=== PATIENT | female | born 1950 | race Caucasian/White ===

== ENCOUNTER 2016-06-03 12:54 | Observation (INO) | payer BC ==
[2016-06-03 13:32] LABS: BILIRUBIN,URINE NEGATIVE (NEGATIVE); BLOOD/HEMOGLOBIN,URINE 1+ (NEGATIVE); GLUCOSE, URINE NEGATIVE (NEGATIVE); KETONES,URINE NEGATIVE (NEGATIVE); LEUKOCYTE ESTERASE ,URINE 2+ (NEGATIVE); NITRITES,URINE NEGATIVE (NEGATIVE); PROTEIN,URINE NEGATIVE (NEGATIVE); UROBILINOGEN,URINE NORMAL (NORMAL)
[2016-06-03 13:33] LABS: BASOPHILS # (AUTO) 0.1 X10^3/uL (0.0-0.1); BASOPHILS % (AUTO) 0.9 % (0.2-1.0); EOSINOPHILS # (AUTO) 0.1 x10^3/uL (0.0-0.2); EOSINOPHILS % (AUTO) 1.9 % (0.9-2.9); HEMATOCRIT 38.1 % (36.0-47.0); HEMOGLOBIN 12.8 g/dL (12.0-16.0); LYMPHOCYTES # (AUTO) 1.3 X10^3/uL (1.3-2.9); LYMPHOCYTES % (AUTO) 22.7 % (21.0-51.0); MEAN CORPUSCULAR HGB CONC 33.7 g/dL (33.0-35.0); MEAN PLATELET VOLUME 6.4 fL (7.4-11.0); MONOCYTES # (AUTO) 0.2 x10^3/uL (0.3-0.8); MONOCYTES % (AUTO) 3.7 % (0.0-13.0); NEUTROPHILS % (AUTO) 70.8 % (42.0-75.0); PLATELET COUNT 268 X10^3/uL (150.0-450.0); RED BLOOD COUNT 4.14 X10^6/uL (3.5-5.4); RED CELL DISTRIBUTION WIDTH 12.7 % (11.6-16.5); WHITE BLOOD COUNT 5.7 X10^3/uL (3.6-10.0)
[2016-06-03 13:38] LABS: APPEARANCE,URINE HAZY (CLEAR); BACTERIA,URINE TRACE /HPF (NEGATIVE); COLOR,URINE YELLOW (YELLOW); RBC,URINE 0-2 /HPF (NEGATIVE); SQUAMOUS EPITHELIAL CELL,UR RARE /HPF (NEGATIVE)
--- NOTE | 2016-06-03 13:56 | CT ---
CT HEAD WITHOUT CONTRAST CLINICAL HISTORY: 65-year-old female with syncope and headache. COMPARISON: None. TECHNIQUE: Multiple, non-contrasted axial CT images were obtained from the skull base to the crania l vertex. FINDINGS: There are no abnormal intra- or extra-axial fluid collections, midline shift, or mass effe ct. Marroquin-white differentiation is normal. Partially empty sella. Global cortical involutional change s are present that are within normal limits for the patient's stated age. The ventricular system is mildly enlarged but commensurate with the degree of sulcal prominence. Periventricular and supravent ricular white matter hypodensity is present that is nonspecific in appearance, but most likely to re present microvascular ischemic changes. Atherosclerotic vascular calcification is present within the carotid siphons and distal vertebral arteries. The imaged paranasal sinuses, mastoid air cells, and tympanic spaces are clear. Significant falcine calcifications are present. IMPRESSION: 1. No definite evidence of an acute intracranial process. 2. Moderate microvascular white matter ischemic changes, with associated volume loss. Reported By:
--- NOTE | 2016-06-03 13:57 | RAD ---
AP Chest Indication: Syncope Comparison: 11/04/2015 Findings: The trachea is midline. The cardiac silhouette is unremarkable. There is mild scarring/atelectasis within the left lung base. Surgical clips are noted within the left axilla. The bony thorax is unr emarkable. IMPRESSION: 1. No acute cardiopulmonary abnormality. Reported By:
[2016-06-03 14:17] LABS: BLOOD UREA NITROGEN 15 mg/dL (7-18); CALCIUM 9.1 mg/dL (8.5-10.1); CARBON DIOXIDE 31.9 mmol/L (21-32); CHLORIDE 101 mmol/L (98-107); CREATININE 0.61 mg/dL (0.55-1.02); GLUCOSE 75 mg/dL (65-99); SODIUM 139 mmol/L (136-145); TROPONIN I < 0.02 ng/mL (0-1.5); eGFR BLACK RACES > 60 (>60); eGFR NON BLACK RACES > 60 (>60)
[2016-06-03 14:24] LABS: ALANINE AMINOTRANSFERASE 25 Units/L (12-78); ALBUMIN 3.6 g/dL (3.4-5.0); ALKALINE PHOSPHATASE 128 Units/L (46-116); ASPARTATE AMINO TRANSFERASE 37 Units/L (15-37); CREATINE KINASE 454 Units/L (26-192)
[2016-06-03 14:25] LABS: CKMB % 1.3 % (<4)
[2016-06-03 14:27] LABS: CREATINE KINASE MB 6.1 ng/mL (0-4.0)
[2016-06-03] MEDS ORDERED: LEVAQUIN TAB 500 MG PO SCH (15:00)
[2016-06-03] MEDS ORDERED: NORVASC TAB 5 MG PO SCH (15:00)
[2016-06-03 15:45] VITALS: BMI 18.9
[2016-06-03] MEDS ORDERED: DUONEB 0.5 MG/3 MG NEB SCH (17:00)
[2016-06-03] MEDS: NS 1000 ML 1,000 ML IV SCH (20:03)
[2016-06-03] MEDS: NEURONTIN CAP 300 MG PO SCH (20:04)
[2016-06-03] MEDS: XANAX PO SCH (20:04)
[2016-06-03 20:25] LABS: CKMB % 1.2 % (<4); CREATINE KINASE 296 Units/L (26-192); CREATINE KINASE MB 3.4 ng/mL (0-4.0); TROPONIN I < 0.02 ng/mL (0-1.5)
[2016-06-04 01:52] LABS: CKMB % 0.9 % (<4); CREATINE KINASE 228 Units/L (26-192); CREATINE KINASE MB 2.1 ng/mL (0-4.0); TROPONIN I < 0.02 ng/mL (0-1.5)
[2016-06-04] MEDS: NS 1000 ML 1,000 ML IV SCH (05:27)
[2016-06-04 06:13] LABS: BASOPHILS # (AUTO) 0.1 X10^3/uL (0.0-0.1); EOSINOPHILS # (AUTO) 0.1 x10^3/uL (0.0-0.2); EOSINOPHILS % (AUTO) 1.6 % (0.9-2.9); HEMATOCRIT 34.6 % (36.0-47.0); HEMOGLOBIN 11.8 g/dL (12.0-16.0); LYMPHOCYTES % (AUTO) 19.3 % (21.0-51.0); MEAN CORPUSCULAR HEMOGLOBIN 30.9 pg (27.0-34.0); MEAN CORPUSCULAR VOLUME 90.7 fL (80.0-100.0); MEAN PLATELET VOLUME 6.8 fL (7.4-11.0); MONOCYTES # (AUTO) 0.3 x10^3/uL (0.3-0.8); MONOCYTES % (AUTO) 5.6 % (0.0-13.0); NEUTROPHILS # (AUTO) 3.7 x10^3/uL (2.2-4.8); NEUTROPHILS % (AUTO) 72.5 % (42.0-75.0); PLATELET COUNT 242 X10^3/uL (150.0-450.0); RED BLOOD COUNT 3.81 X10^6/uL (3.5-5.4); RED CELL DISTRIBUTION WIDTH 12.7 % (11.6-16.5); WHITE BLOOD COUNT 5.2 X10^3/uL (3.6-10.0)
[2016-06-04 06:34] LABS: ALANINE AMINOTRANSFERASE 23 Units/L (12-78); ALBUMIN 2.9 g/dL (3.4-5.0); ALKALINE PHOSPHATASE 85 Units/L (46-116); ASPARTATE AMINO TRANSFERASE 26 Units/L (15-37); BLOOD UREA NITROGEN 10 mg/dL (7-18); CALCIUM 8.3 mg/dL (8.5-10.1); CARBON DIOXIDE 28.2 mmol/L (21-32); CHLORIDE 104 mmol/L (98-107); COR CA(FOR HYPOALB) 9.2 mg/dL (8.5-10.1); CREATININE 0.38 mg/dL (0.55-1.02); GLUCOSE 98 mg/dL (65-99); SODIUM 139 mmol/L (136-145); eGFR BLACK RACES > 60 (>60); eGFR NON BLACK RACES > 60 (>60)
[2016-06-04] MEDS: XANAX PO SCH (08:37)
[2016-06-04] MEDS: NEURONTIN CAP 300 MG PO SCH (08:37)
[2016-06-04 10:08] VITALS: BP 137/81
[2016-06-04] MEDS ORDERED: FLEXERIL TAB 10 MG PO PRN (11:22)
[2016-06-04] MEDS ORDERED: [UNRECOGNIZED DRUG - OTHER] PO PRN (11:22)
[2016-06-04] MEDS ORDERED: TYLENOL #3 TAB (W/CODEINE) PO PRN (12:21)
--- NOTE | 2016-06-04 13:16 | DR.CARTERS ---
Short Stay Summary - Short Stay Summary for: Short Stay Summary for Date of:: 06/04/16 - Admission Date Date of Admission: 06/03/16 - Discharge Date Discharge Date: 06/04/16 - Admission Diagnoses (1) Episode of syncope Status: Acute (2) Unresponsive Status: Acute (3) Respiratory distress Status: Acute (4) Acute bronchitis Status: Acute (5) Hypertension Status: Chronic (6) Anxiety Status: Chronic - Hospital Course Hospital Course: DAY ONE OF HOSPITAL STAY, THIS 65 YEAR OLD FEMALE, IS A PATIENT OF DR. SWANSON. PATIENT PRESENTED TO THE EMERGENCY ROOM, VIA EMS, WITH COMPLAINTS OF A SYNCOPAL EPISODE AT HOME. PATIENT'S SON REPORTED HE FOUND HER LAYING IN THE DOORWAY OF HER HOME AND SHE WAS UNRESPONSIVE. PATIENT HAS A HISTORY OF SYNCOPE. SON REPORTED PATIENT WAS UNRESPONSIVE FOR APPROXIMATELY 30 MINUTES. PATIENT WAS ALERT AND ORIENTED ON ARRIVAL TO ER. 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 ON ARRIVAL, PATIENT WAS REPORTING BACK AND RIGHT LEG PAIN AND RATED IT A 7 ON A 1-TO-10 PAIN SCALE. VITAL SIGNS WERE STABLE. PATIENT REPORTED SHE WAS A HEAVY TOBACCO SMOKER OF 40 YEARS. SHE REPORTED A PRODUCTIVE COUGH WITH THICK, YELLOW SPUTUM. ON AUSCULTATION, LUNGS WERE NOTED WITH RHONCHI THROUGHOUT. SHE WAS NOTED WITH MODERATE RESPIRATORY DISTRESS WITH ACCESSORY MUSCLE USE. LABS AND XRAY OBTAINED IN ER. CBC WNL. CMP WNL EXCEPT: ALK PHOS 128. CARDIAC ENZYMES WNL EXCEPT: CREAT KINASE 454, CKMB 6.1. URINALYSIS WNL. CT OF BRAIN REPORTED NO DEFINITE EVIDENCE OF ACUTE INTRACRANIAL PROCESS; MODERATE MICROVASCULAR WHITE MATTER ISCHEMIC CHANGES, WITH ASSOCIATED VOLUME LOSS. CHEST XRAY REPORTS NO ACUTE CARDIOPULMONARY ABNORMALITY. EKG: SINUS RHYTHM, RATE 86. WE ADMITTED PATIENT FOR FURTHER TREATMENT AND EVALUATION. DAY TWO OF HOSPITAL STAY, PATIENT WAS MONITORED IN ICU ON TELEMETRY. SHE CONTINUED ON DUONEBS FOR BRONCHITIS. SERIAL CARDIAC ENZYMES WNL EXCEPT: CREAT KINASE 228. EKG: SINUS RHYTHM, RATE 83. CBC WNL EXCEPT: H/H 11.8/34.6. CMP WNL EXCEPT: CALCIUM 8.3, TOT PROTEIN 6.0, ALBUMIN 2.9. PATIENT REFUSED TO STAY IN HOSPITAL FOR FURTHER TREATMENT AND EVALUATION OF SYNCOPE AND RESPIRATORY DISTRESS. PATIENT WAS NOTED WITH SHORTNESS OF BREATH ON EXERTION. PATIENT SIGNED OUT AGAINST MEDICAL ADVICE. PATIENT LEFT HOSPITAL IN STABLE CONDITION. - Discharge Medications Discharge Medications: Acetaminophen W/ Codeine [Tylenol w/Codeine #4 (300 mg/60 mg)] 1 tab PO Q8H PRN 02/16/12 Alprazolam [XANAX 0.5 MG *] 0.5 mg PO BID 02/16/12 Amlodipine Besylate [NORVASC 5 MG *] 1 tab PO .EVENING 06/03/16 Cyclobenzaprine HCl [FLEXERIL 10 MG *] 1 tab PO TID PRN 06/03/16 Gabapentin [NEURONTIN CAP 300 mg *] 1 cap PO BID 06/03/16 - Discharge Plan Disposition: AGAINST MEDICAL ADVICE Condition: Stable - Follow up/Referrals Follow up/Referrals: BRAD SWANSON [Primary Care Provider] - 1 DAY - Instructions
== END 2016-06-04 12:20 | disposition left against medical advice (07) ==
LOC: ER 12:54 → ICU 14:04
PROVIDERS: ADMIT Internal Medicine; ATTEND Internal Medicine
DX: R55 Syncope and collapse (principal); J20.8 Acute bronchitis due to other specified organisms; R06.00 Dyspnea, unspecified; I10 Essential (primary) hypertension; F41.8 Other specified anxiety disorders; M54.89 Other dorsalgia; M79.604 Pain in right leg; R06.02 Shortness of breath; D64.89 Other specified anemias; R74.8 Abnormal levels of other serum enzymes; R41.89 Other symptoms and signs involving cognitive functions and awareness
CPT/HCPCS: 36415; 70450; 71010; 80053; 81001; 82550; 82553; 84484; 85025; 93005; 93010; 96365; 99284; G0378

== ENCOUNTER → 2016-08-22 | Outpatient (CLI) | payer BC ==
--- NOTE | 2016-08-22 17:33 | MRI ---
HISTORY: Back pain. Study: MRI thoracic spine without contrast. Comparison: None. Massiel Technique: Multiplanar/multi sequence imaging of the thoracic spine without contrast. Findings: Anatomic alignment without fracture or listhesis. Multilevel disc desiccation without significant di sc height loss. Several scattered T1/T2 bright foci likely representing benign hemangiomas. Multilev el type 2 Modic endplate changes. No aggressive osseous lesions. Otherwise , the visualized bone mar row demonstrates normal signal characteristics. No significant neural foraminal narrowing or spinal canal stenosis. The visualized spinal cord demonstrates normal course, caliber, and signal character istics. The visualized soft tissues are unremarkable. IMPRESSION: No significant neural foraminal narrowing or spinal canal stenosis. Reported By:
== END ==
LOC: RAD 15:43
PROVIDERS: ATTEND Nurse Practitioner Family
DX: M54.6 Pain in thoracic spine (principal)
CPT/HCPCS: 72146

== ENCOUNTER 2016-11-02 04:56 | Emergency (ER) | payer OTHER ==
[2016-11-02 05:14] VITALS: BP 173/85; BMI 16.6
--- NOTE | 2016-11-02 05:30 | DR.GENAD ---
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 Pain 10, severlty quality sharp, duration one day modifying factor movement Chief Complaint:: BACK PAIN Self Treatment fo Chief Complaint: TYLENOL #4;ALPRAZOLAM 0.5MG;CYCLOBENZAPRINE 10MG; GABAPENTIN 300MG - Source History Provided: Patient - Mode of Arrival Mode of Arrival: Ambulatory - Timing Onset of Chief Complaint: 10/31/16 PMH - PMH Past Medical History: Yes Past Medical History: Hypertension Past Medical History Comment: DJD; MULTIPLE SURGIES Past Surgical History: Yes Surgical History: Appendectomy, Cholecystectomy, Hysterectomy, Mastectomy, Ortho Surgery - Family History History of Family Medical Conditions: No Family Medical History: Cancer, [place], Coronary Artery Disease, Sudden Cardiac , Hypertension - Social History Does patient currently use any type of tobacco product: Yes Have you used tobacco products in the last 12 months: Yes Type of Tobacco Use: Cigarettes Alcohol Use: Rarely Do you use any recreational Drugs:: No Lives With: Spouse Lives Where: Home - infectious screening In the last 2 months have you had wt loss of >10#?: NO Have you had fever, night sweats or hemotysis?: No Have you traveled outside the country in the last 6 months?: No Isolation: Standard ROS - Review of Systems Eyes: No Symptoms Reported ENTM: No Symptoms Reported Respiratoy: No Symptoms Reported Cardiovascular: No Symptoms Reported Gastrointestinal/Abdominal: No Symptoms Reported Genitourinary: No Symptoms Reported Neurological: No Symptoms Reported Musculoskeletal: No Symptoms Reported Integumentary: No Symptoms Reported Hematologic/Lymphatic: No Symptoms Reported Endocrine: No Symptoms Reported Psychiatric: No Symptoms Reported All Other Systems: Reviewed and Negative PE - Vital Signs Vitals: Temperature 98.6 F Pulse Rate 99 Respiratory Rate 20 Blood Pressure [Right Arm] 137/81 Blood Pressure 173/85 O2 Sat by Pulse Oximetry 96 - General Limitations: No Limitations General Appearance: Alert, Anxious - Head Head Exam: Normal Inspection, Atraumatic - Eyes Eye exam: Normal Appearance, PERRL, EOMI - ENT ENT Exam: Normal Exam External Ear Exam: Normal External Inspection TM/Canal Exam: Bilateral Normal Nose Exam: Normal Nose Exam Mouth Exam: Normal Inspection Throat Exam: Normal Inspection - Neck Neck Exam: Normal Inspection, Full ROM - Chest Chest Inspection: Normal Inspection - Respiratory Respiratory Exam: Normal Lung Sounds Bilat Respiratory Exam: Bilateral Clear to Auscultation - Cardiovascular Cardiovascular Exam: Regular Rate, Normal Rhythm - Abdominal Exam Abdominal Exam: Normal Inspection, Normal Bowel Sounds, Soft Abdominal Tenderness: negative: RUQ, RLQ, LUQ, LLQ, Epigastrium, Suprapubic, Diffuse, Mild, Moderate, Severe, Other - Extremities Extremities Exam: Normal Inspection, Full ROM - Back Back Exam: Normal Inspection, Full ROM - Neurologic Neurological Exam: Alert, Oriented X3, CN II-XII Intact - Psychiatric Psychiatric Exam: Normal Affect - Skin Skin Exam: Warm, Dry, Intact - Diagnosis Discharge Problem: Back pain Qualifiers: Back pain location: low back pain Chronicity: chronic Back pain laterality: midline Sciatica presence: without sciatica Qualified Code(s): M54.5 - Low back pain; G89.29 - Other chronic pain - Discharge Plan Condition: Stable - Follow ups/Referrals Follow ups/Referrals: MERYL DESAI [Primary Care Provider] - 3 days - Instructions
[2016-11-02] MEDS ORDERED: DEMEROL INJ IM ONE (05:31)
[2016-11-02] MEDS ORDERED: PHENERGAN INJ 25 MG IM ONE (05:32)
[2016-11-02] MEDS ORDERED: PHENERGAN INJ 25 MG ONE (05:33)
[2016-11-02] MEDS ORDERED: DEMEROL INJ ONE (05:33)
== END 2016-11-02 06:33 | disposition home or self-care (01) ==
LOC: ER 04:56
DX: M54.5 Low back pain (principal); G89.29 Other chronic pain
CPT/HCPCS: 96372; 99282; J2175; J2550

== ENCOUNTER 2016-11-19 09:58 | Observation (INO) | payer OTHER ==
[2016-11-19] MEDS: NS 1000 ML 1,000 ML IV SCH (11:30)
[2016-11-19] MEDS: CIPRO IV 400 MG PREMIX* 400 MG/200 ML IV.SOLN. IV SCH ×2 (11:31→20:46)
[2016-11-19 11:33] VITALS: BMI 17.5
[2016-11-19 11:36] LABS: BASOPHILS # (AUTO) 0.1 X10^3/uL (0.0-0.1); BASOPHILS % (AUTO) 1.1 % (0.2-1.0); EOSINOPHILS % (AUTO) 0.5 % (0.9-2.9); HEMATOCRIT 36.4 % (36.0-47.0); HEMOGLOBIN 12.7 g/dL (12.0-16.0); LYMPHOCYTES % (AUTO) 16.1 % (21.0-51.0); MEAN CORPUSCULAR HEMOGLOBIN 31.2 pg (27.0-34.0); MEAN CORPUSCULAR HGB CONC 34.9 g/dL (33.0-35.0); MEAN CORPUSCULAR VOLUME 89.4 fL (80.0-100.0); MEAN PLATELET VOLUME 6.7 fL (7.4-11.0); MONOCYTES # (AUTO) 0.2 x10^3/uL (0.3-0.8); MONOCYTES % (AUTO) 3.9 % (0.0-13.0); NEUTROPHILS # (AUTO) 4.9 x10^3/uL (2.2-4.8); NEUTROPHILS % (AUTO) 78.4 % (42.0-75.0); PLATELET COUNT 394 X10^3/uL (150.0-450.0); RED BLOOD COUNT 4.07 X10^6/uL (3.5-5.4); RED CELL DISTRIBUTION WIDTH 13.2 % (11.6-16.5); WHITE BLOOD COUNT 6.3 X10^3/uL (3.6-10.0)
[2016-11-19 12:00] LABS: ALANINE AMINOTRANSFERASE 18 Units/L (12-78); ALBUMIN 3.6 g/dL (3.4-5.0); ALKALINE PHOSPHATASE 70 Units/L (46-116); ASPARTATE AMINO TRANSFERASE 19 Units/L (15-37); BLOOD UREA NITROGEN 11 mg/dL (7-18); CALCIUM 8.9 mg/dL (8.5-10.1); CARBON DIOXIDE 28.8 mmol/L (21-32); CHLORIDE 100 mmol/L (98-107); CREATININE 0.53 mg/dL (0.55-1.02); FREE T4 (FREE THYROXINE) 0.96 ng/dL (0.76-1.46); MAGNESIUM 1.8 mg/dL (1.7-2.9); SODIUM 138 mmol/L (136-145); TOTAL PROTEIN 7.1 g/dL (6.4-8.2); TSH (3RD GENERATION) 0.245 uIU/mL (0.358-3.74); eGFR BLACK RACES > 60 (>60); eGFR NON BLACK RACES > 60 (>60)
[2016-11-19 12:11] LABS: BILIRUBIN,URINE NEGATIVE (NEGATIVE); BLOOD/HEMOGLOBIN,URINE 2+ (NEGATIVE); GLUCOSE, URINE NEGATIVE (NEGATIVE); KETONES,URINE NEGATIVE (NEGATIVE); LEUKOCYTE ESTERASE ,URINE 1+ (NEGATIVE); NITRITES,URINE NEGATIVE (NEGATIVE); PROTEIN,URINE NEGATIVE (NEGATIVE); UROBILINOGEN,URINE NORMAL (NORMAL)
[2016-11-19] MEDS ORDERED: CATAPRES TAB 0.1 MG PO ONE (12:16)
--- NOTE | 2016-11-19 12:21 | DR.H&P ---
H&P - History & Physical for Day of: H&P Date: 11/19/16 - Chief Complaint Chief Complaint: RIGHT SIDE PAIN, HEADACHE AND ELEVATED BLOOD PRESSURE THIS AM - Allergies Allergies/Adverse Reactions: Allergies Allergy/AdvReac Type Severity Reaction Status Date / Time morphine Allergy Verified 11/02/16 05:25 - History of Present Illness History of Present Illness: patient is a 66-year-old white female who was a direct admit from Dr. Richter's office. Patient presented with complaints of right side and right flank pain. Patient states pain is intractable. Patient also complains of headache and elevated blood pressure this a.m. Patient currently takes lisinopril daily for blood pressure. Patient's blood pressure in the office was approximately 170/100. Patient complains of nausea without vomiting or diarrhea. Plan to admit patient for further evaluation of right abdominal pain and treatment of hypertension. - Past Medical History Past Medical History: Anxiety, Arthritis, Hypertension - Past Surgical History Surgical History: Appendectomy, Cholecystectomy, Hysterectomy, Mastectomy, Ortho Surgery - Family History Family Medical History: Cancer, [place], Coronary Artery Disease, Sudden Cardiac , Hypertension - Social History Does patient currently use any type of tobacco product: Yes Have you used tobacco products in the last 12 months: Yes Type of Tobacco Use: Cigarettes How many years tobacco product used: 40 Does any household member use tobacco: No Alcohol Use: None Drug Use: None - Medications Home Medications: Aspirin [ASPIRIN 325 MG *] 1 tab PO DAILY 11/19/16 [History Confirmed 11/19/16] Lisinopril/Hydrochlorothiazide [Lisinopril-Hctz 10-12.5 mg Tab] 1 tab PO DAILY 11/19/16 [History Confirmed 11/19/16] - Review of Systems Constitutional: Weakness Eyes: No Symptoms Reported ENT: No Symptoms Reported Respiratory: No Symptoms Reported Cardiovascular: Palpitations Gastrointestinal: Nausea, Abdominal Pain Genitourinary: No Symptoms Reported Musculoskeletal: Back Pain Skin: No Symptoms Reported Neurological: Other (headache) - Physical Exam Vital Signs: Temperature 98.3 F Pulse Rate [Left Brachial] 77 Respiratory Rate 18 Blood Pressure [Left Arm] 196/90 Blood Pressure [Right Arm] 137/81 Blood Pressure 173/85 O2 Sat by Pulse Oximetry 96 Oriented: Normal Eyes: Normal Ear: Normal Nose: Normal Throat: Normal Respiratory: LLL Diminished Cardiovascular: Normal Auscultation: Bowel Sounds: Normal Palpation: Normal Tenderness: RLQ, Other (right flank tenderness) Musculoskeletal: Back:Thoracic, Back:Lumbar, Deformity (scoliosis), Sensory Deficit Mood Description: Anxious Speech Pattern: Clear, Appropriate - Assessment/Plan (1) Right sided abdominal pain Status: Acute Plan: ADMIT, ADMISSION LABS CBC CMP UA. MAG, EKG, CXR ON ADMISSION. CATAPRES 0.1 PO NOW, CT ABD PELVIS WITH CONTRAST. RESUME HOME MEDS, D/C LISINORPIL/HCT. START LISINOPRIL 10MG PO BID (2) Hypertension Status: Chronic (3) COPD (chronic obstructive pulmonary disease) Status: Acute (4) Anxiety Status: Chronic
[2016-11-19 12:23] LABS: APPEARANCE,URINE CLEAR (CLEAR); BACTERIA,URINE TRACE /HPF (NEGATIVE); COLOR,URINE YELLOW (YELLOW); MUCUS,URINE FEW /HPF (NEGATIVE); SQUAMOUS EPITHELIAL CELL,UR RARE /HPF (NEGATIVE)
[2016-11-19] MEDS ORDERED: ZOFRAN INJ 4 MG VIAL IVP PRN (12:25)
[2016-11-19] MEDS ORDERED: NS 100 ML IV 100 ML IV ONE (12:48)
[2016-11-19] MEDS: NORCO 10/325 TAB PO PRN ×2 (13:07→23:25)
--- NOTE | 2016-11-19 17:57 | CT ---
CT abdomen and pelvis with contrast Indication: Right lower quadrant and flank pain for 2 months Technique: 5 mm axial images of the abdomen and pelvis was performed after administration of IV contr ast. Coronal and sagittal reformatted images were also provided. Dose modulation was performed with adjustment of mA and kV for decreased radiation dose was performed . Findings: The lung bases are clear. There is no focal hepatic lesion. There is mild intrahepatic and expected bile duct dilatation of the with and without obstructing stone or mass identified. Prior cho lecystectomy is noted. The spleen, pancreas and adrenal glands are normal. There is moderate scarring within the superior right kidney. No mass or hydronephrosis identified. There is a punctate nonobstr ucting stone within the lower pole the right kidney on axial image 31. The left kidney demonstrates a small cyst within its mid pole. No nephrolithiasis or hydronephrosis. Upper GI tract is without evid ence of mass or obstruction. Urinary bladder is normal. No pelvic or adnexal mass. The rectum is unre markable. There is mild thickening of the sigmoid colon with multiple diverticula within the sigmoid and descending colon. The proximal colon is unremarkable. The appendix is not well visualized abdomin al aorta is normal in caliber with moderate calcified atherosclerotic disease and tortuosity. No delfino opathy free fluid within the abdomen or pelvis. Review of bone windows demonstrates no acute osseous abnormality. There is moderate dextroscoliosis lumbar spine with multilevel spondylosis noted. Impression: 1.Scattered diverticula with mild thickening of the sigmoid colon, given lack of surrounding pericolo vahid inflammatory change is indeterminate and clinical correlation is needed to exclude a mild acute d iverticulitis. 2. A punctate nonobstructing stone within the lower pole of the right kidney. No right-sided ureteral stone or hydronephrosis. 3. Moderate parenchymal scarring within the upper pole of the right kidney. 4. Mild intra and extrahepatic bile duct dilatation without obstructing stone or mass, correlation c holestatic function test is recommended however this can be seen in a setting of prior cholecystectom y. 5. The appendix was not visualized, no definite inflammatory change or fluid identified within the ri t lower quadrant. 6. Refer to above for other incidental findings. Reported By:
[2016-11-19] MEDS: TORADOL 15 MG VIAL IVP PRN (18:16)
--- NOTE | 2016-11-19 18:20 | RAD ---
HISTORY: Right lower quadrant pain, flank pain Study: Single view chest Comparison: 06/03/2016 Findings: The lungs are clear without consolidation, effusion or pneumothorax. The cardiac and mediastinal con tours are within normal limits. The soft tissues are unremarkable. Multiple surgical clips are seen in the left axilla. IMPRESSION: 1. No acute cardiopulmonary abnormality. Reported By:
[2016-11-19] MEDS ORDERED: PATIENT'S HOME MEDICATION (Acetaminophen With Codeine [Tylenol W/Codeine #4 (300 Mg/60 Mg) PO PRN (19:44)
[2016-11-19] MEDS: NEURONTIN CAP 300 MG PO SCH (20:45)
[2016-11-19] MEDS: ZESTRIL TAB 10 MG PO SCH (20:46)
[2016-11-19] MEDS: XANAX PO SCH (20:46)
[2016-11-19] MEDS: FLEXERIL TAB 10 MG PO PRN (23:26)
[2016-11-20] MEDS: TORADOL 15 MG VIAL IVP PRN ×2 (01:15→09:23)
[2016-11-20] MEDS: NS 1000 ML 1,000 ML IV SCH ×2 (01:17→14:56)
[2016-11-20 05:28] LABS: BASOPHILS # (AUTO) 0.1 X10^3/uL (0.0-0.1); BASOPHILS % (AUTO) 1.5 % (0.2-1.0); EOSINOPHILS # (AUTO) 0.2 x10^3/uL (0.0-0.2); EOSINOPHILS % (AUTO) 3.7 % (0.9-2.9); HEMATOCRIT 33.3 % (36.0-47.0); HEMOGLOBIN 11.4 g/dL (12.0-16.0); LYMPHOCYTES # (AUTO) 1.9 X10^3/uL (1.3-2.9); LYMPHOCYTES % (AUTO) 32.5 % (21.0-51.0); MEAN CORPUSCULAR HEMOGLOBIN 30.9 pg (27.0-34.0); MEAN CORPUSCULAR HGB CONC 34.4 g/dL (33.0-35.0); MEAN PLATELET VOLUME 7.2 fL (7.4-11.0); MONOCYTES # (AUTO) 0.4 x10^3/uL (0.3-0.8); MONOCYTES % (AUTO) 6.8 % (0.0-13.0); NEUTROPHILS # (AUTO) 3.3 x10^3/uL (2.2-4.8); NEUTROPHILS % (AUTO) 55.5 % (42.0-75.0); PLATELET COUNT 333 X10^3/uL (150.0-450.0); RED CELL DISTRIBUTION WIDTH 13.2 % (11.6-16.5); WHITE BLOOD COUNT 5.9 X10^3/uL (3.6-10.0)
[2016-11-20 05:31] LABS: ALANINE AMINOTRANSFERASE 14 Units/L (12-78); ALBUMIN 2.8 g/dL (3.4-5.0); ALKALINE PHOSPHATASE 66 Units/L (46-116); ASPARTATE AMINO TRANSFERASE 20 Units/L (15-37); BLOOD UREA NITROGEN 9 mg/dL (7-18); CALCIUM 8.5 mg/dL (8.5-10.1); CARBON DIOXIDE 28.4 mmol/L (21-32); CHLORIDE 105 mmol/L (98-107); COR CA(FOR HYPOALB) 9.5 mg/dL (8.5-10.1); CREATININE 0.56 mg/dL (0.55-1.02); SODIUM 141 mmol/L (136-145); eGFR BLACK RACES > 60 (>60); eGFR NON BLACK RACES > 60 (>60)
[2016-11-20] MEDS ORDERED: K-RIDER 10 MEQ/NS 100 ML 10 MEQ/100 ML BAG IV PRN (06:23)
[2016-11-20] MEDS ORDERED: K-LYTE EFFERVESCENT PO PRN (06:23)
[2016-11-20] MEDS ORDERED: K-DUR TAB 20 MEQ PO PRN (06:23)
[2016-11-20] MEDS ORDERED: POTASSIUM CHLORIDE LIQ 20 MEQ UDC PO PRN (06:23)
[2016-11-20] MEDS: NORCO 10/325 TAB PO PRN ×3 (07:20→22:23)
[2016-11-20] MEDS: CIPRO IV 400 MG PREMIX* 400 MG/200 ML IV.SOLN. IV SCH ×2 (08:40→20:32)
[2016-11-20] MEDS: ASPIRIN PO SCH (08:40)
[2016-11-20] MEDS: NEURONTIN CAP 300 MG PO SCH ×2 (08:40→20:33)
[2016-11-20] MEDS: PEPCID 20 MG IV PREMIX* 20 MG/50 ML BAG IV SCH (08:40)
[2016-11-20] MEDS: XANAX PO SCH ×2 (08:40→20:33)
[2016-11-20] MEDS: ZESTRIL TAB 10 MG PO SCH ×2 (08:41→20:32)
[2016-11-20] MEDS: FLAGYL IV PREMIX 500 MG BAG 500 MG/100 ML BAG IV SCH ×3 (09:23→20:31)
[2016-11-20] MEDS: DEMEROL INJ IVP PRN ×2 (10:24→16:08)
[2016-11-20] MEDS ORDERED: TAPAZOLE ONE ×2 (13:48→20:15)
[2016-11-20] MEDS: TAPAZOLE PO SCH ×2 (13:51→20:32)
[2016-11-20] MEDS: FLEXERIL TAB 10 MG PO PRN ×2 (13:55→20:36)
[2016-11-21] MEDS: FLAGYL IV PREMIX 500 MG BAG 500 MG/100 ML BAG IV SCH ×2 (03:06→08:45)
[2016-11-21] MEDS: DEMEROL INJ IVP PRN ×2 (04:15→08:46)
[2016-11-21 05:23] LABS: BASOPHILS # (AUTO) 0.1 X10^3/uL (0.0-0.1); BASOPHILS % (AUTO) 1.9 % (0.2-1.0); EOSINOPHILS # (AUTO) 0.2 x10^3/uL (0.0-0.2); HEMATOCRIT 32.7 % (36.0-47.0); HEMOGLOBIN 11.3 g/dL (12.0-16.0); LYMPHOCYTES # (AUTO) 1.7 X10^3/uL (1.3-2.9); LYMPHOCYTES % (AUTO) 28.8 % (21.0-51.0); MEAN CORPUSCULAR HEMOGLOBIN 31.4 pg (27.0-34.0); MEAN CORPUSCULAR HGB CONC 34.5 g/dL (33.0-35.0); MEAN CORPUSCULAR VOLUME 90.9 fL (80.0-100.0); MEAN PLATELET VOLUME 7.2 fL (7.4-11.0); MONOCYTES # (AUTO) 0.4 x10^3/uL (0.3-0.8); MONOCYTES % (AUTO) 6.9 % (0.0-13.0); NEUTROPHILS # (AUTO) 3.4 x10^3/uL (2.2-4.8); NEUTROPHILS % (AUTO) 58.4 % (42.0-75.0); PLATELET COUNT 328 X10^3/uL (150.0-450.0); RED BLOOD COUNT 3.59 X10^6/uL (3.5-5.4); RED CELL DISTRIBUTION WIDTH 12.9 % (11.6-16.5); WHITE BLOOD COUNT 5.9 X10^3/uL (3.6-10.0)
[2016-11-21 05:30] LABS: ALANINE AMINOTRANSFERASE 15 Units/L (12-78); ALBUMIN 2.7 g/dL (3.4-5.0); ALKALINE PHOSPHATASE 74 Units/L (46-116); ASPARTATE AMINO TRANSFERASE 17 Units/L (15-37); BLOOD UREA NITROGEN 10 mg/dL (7-18); CARBON DIOXIDE 26.5 mmol/L (21-32); CHLORIDE 107 mmol/L (98-107); CREATININE 0.56 mg/dL (0.55-1.02); SODIUM 141 mmol/L (136-145); TOTAL PROTEIN 5.6 g/dL (6.4-8.2); eGFR BLACK RACES > 60 (>60); eGFR NON BLACK RACES > 60 (>60)
[2016-11-21] MEDS: NORCO 10/325 TAB PO PRN (06:05)
[2016-11-21] MEDS ORDERED: TAPAZOLE ONE (08:38)
[2016-11-21] MEDS: PEPCID 20 MG IV PREMIX* 20 MG/50 ML BAG IV SCH (08:45)
[2016-11-21] MEDS: CIPRO IV 400 MG PREMIX* 400 MG/200 ML IV.SOLN. IV SCH (08:45)
[2016-11-21] MEDS: XANAX PO SCH (08:45)
[2016-11-21] MEDS: NEURONTIN CAP 300 MG PO SCH (08:45)
[2016-11-21] MEDS: ASPIRIN PO SCH (08:45)
[2016-11-21] MEDS: TAPAZOLE PO SCH (08:45)
[2016-11-21] MEDS: ZESTRIL TAB 10 MG PO SCH (08:46)
[2016-11-21] MEDS: TORADOL 15 MG VIAL IVP PRN (11:51)
[2016-11-21 12:09] VITALS: BP 156/86
== END 2016-11-21 12:00 | disposition home or self-care (01) ==
LOC: MED/SURG 09:58
PROVIDERS: ADMIT Internal Medicine; ATTEND Internal Medicine
DX: R10.84 Generalized abdominal pain (principal); I10 Essential (primary) hypertension; R51 Headache; J44.9 Chronic obstructive pulmonary disease, unspecified; F41.8 Other specified anxiety disorders; E87.6 Hypokalemia; K57.92 Diverticulitis of intestine, part unspecified, without perforation or abscess without bleeding; M54.89 Other dorsalgia; Z79.899 Other long term (current) drug therapy
CPT/HCPCS: 36415; 71010; 72146; 74177; 80053; 81001; 83735; 84132; 84439; 84443; 85025; 87040; 93005; 93010; A4222; S0028; S0030; G0378; J0744; J2175

== ENCOUNTER 2016-12-27 19:11 | Emergency (ER) | payer OTHER ==
[2016-12-27 19:22] VITALS: BMI 17.3
--- NOTE | 2016-12-27 20:28 | DR.GENAD ---
HPI - PCP Primary Care Physician: MERYL DESAI - HPI Comment HPI Comment: LBP that is not resolving with her home meds. She states she was informed she a cyst on her spine. She has been referred to neuro-surgical services but they have not gotten back to her yet. She has Tylenol #4, Neurontin , Flexeril already. - Complaint/Symptoms Chief Complaint:: CYST ON SPINE; SAW PCP MERYL DESAI TODAY; PAIN HAS WORSENED THIS EVENING; HAS PRESCRIPTION FOR ACETAMINOPHEN/COD #4 Self Treatment fo Chief Complaint: TOOK PRESCRIBED MEDS THIS EVENING X 3 HOURS AGAO - Nurses notes reviewed Nurses Notes Review: Yes - Source History Provided: Patient - Mode of Arrival Mode of Arrival: Ambulatory - Timing Onset of Chief Complaint: 12/27/16 - Modifying Factors Worsens:: none Improves:: none PMH - PMH Past Medical History: Yes Past Medical History: Hypertension Past Medical History Comment: LBP Past Surgical History: Yes Surgical History: Hysterectomy - Family History History of Family Medical Conditions: No Family Medical History: Cancer, [place], Coronary Artery Disease, Sudden Cardiac , Hypertension - Social History Does patient currently use any type of tobacco product: Yes Have you used tobacco products in the last 12 months: Yes Type of Tobacco Use: Cigarettes Does any household member use tobacco: Yes Alcohol Use: None Do you use any recreational Drugs:: No Lives With: Family Lives Where: Home - infectious screening In the last 2 months have you had wt loss of >10#?: NO Have you had fever, night sweats or hemotysis?: No Have you traveled outside the country in the last 6 months?: No Isolation: Standard ROS - Review of Systems Constitutional: No Symptoms Reported Eyes: No Symptoms Reported ENTM: No Symptoms Reported Respiratoy: No Symptoms Reported Cardiovascular: No Symptoms Reported Gastrointestinal/Abdominal: No Symptoms Reported Genitourinary: No Symptoms Reported Neurological: No Symptoms Reported Musculoskeletal: Back Pain Integumentary: No Symptoms Reported Hematologic/Lymphatic: No Symptoms Reported Endocrine: No Symptoms Reported Psychiatric: No Symptoms Reported All Other Systems: Reviewed and Negative PE - Vital Signs Vitals: Temperature 98.9 F Pulse Rate 105 Respiratory Rate 22 Blood Pressure [Left Arm] 147/79 Blood Pressure [Right Arm] 156/86 Blood Pressure 120/98 O2 Sat by Pulse Oximetry 96 - General Limitations: No Limitations General Appearance: Alert, In No Apparent Distress - Head Head Exam: Normal Inspection - Eyes Eye exam: Normal Appearance - ENT ENT Exam: Normal Exam - Neck Neck Exam: Normal Inspection - Chest Chest Inspection: Normal Inspection - Respiratory Respiratory Exam: Normal Lung Sounds Bilat - Cardiovascular Cardiovascular Exam: Regular Rate, Normal Rhythm - Abdominal Exam Abdominal Exam: Normal Inspection, Normal Bowel Sounds, Soft - Extremities Extremities Exam: Normal Inspection - Back Back Exam: Tenderness, Muscle Spasm (right thoracic paravertebral muscle spasm) - Neurologic Neurological Exam: Alert, Oriented X3, CN II-XII Intact - Psychiatric Psychiatric Exam: Normal Affect, Normal Mood - Skin Skin Exam: Warm, Dry, Intact, Normal Color - Diagnosis Discharge Problem: Acute exacerbation of chronic low back pain - Discharge Plan Disposition: HOME, SELF-CARE Condition: Stable - Follow ups/Referrals Follow ups/Referrals: MERYL DESAI [Primary Care Provider] - 3 days - Instructions
[2016-12-27] MEDS ORDERED: DEMEROL INJ IM ONE (20:30)
[2016-12-27] MEDS ORDERED: DEMEROL PO ONE (20:32)
[2016-12-27] MEDS ORDERED: ZANAFLEX PO PRN (20:33)
[2016-12-27] MEDS ORDERED: DEMEROL INJ ONE (20:53)
[2016-12-27] MEDS ORDERED: ZANAFLEX ONE (20:54)
[2016-12-27 21:22] VITALS: BP 113/71
== END 2016-12-27 21:20 | disposition home or self-care (01) ==
LOC: ER 19:28
DX: G89.29 Other chronic pain (principal)
CPT/HCPCS: 96372; 99282; J2175

== ENCOUNTER 2017-02-03 08:08 | Emergency (ER) | payer OTHER ==
[2017-02-03 08:25] VITALS: BP 127/75; BMI 17.5
[2017-02-03] MEDS ORDERED: AMOXIL CAP 500 MG PO ONE ×2 (08:32→08:37)
[2017-02-03] MEDS ORDERED: MOTRIN TAB 800 MG PO ONE ×2 (08:32→08:37)
--- NOTE | 2017-02-03 08:33 | DR.GENAD ---
HPI - PCP Primary Care Physician: LIZANDRO DE LA ROSA - Complaint/Symptoms Chief Complaint Doctors Comments: toothache and swelling. These symptoms started yesterday. She has no fever. Chief Complaint:: PT C/O HAVING A TOOTHACHE AND A UPPER RIGHT TOOTH THAT IS BROKE OFF PT HAS EDEMA TO HER RIGHT JAW AREA.... - Nurses notes reviewed Nurses Notes Review: Yes - Source History Provided: Patient - Mode of Arrival Mode of Arrival: Ambulatory - Timing Onset of Chief Complaint: 02/03/17 - Modifying Factors Worsens:: nothing Improves:: nothing PMH - PMH Past Medical History: Yes Past Medical History: Hypertension Past Surgical History: Yes Surgical History: Hysterectomy - Family History History of Family Medical Conditions: Yes Family Medical History: Cancer, [place], Coronary Artery Disease, Sudden Cardiac , Hypertension - Social History Does patient currently use any type of tobacco product: No Have you used tobacco products in the last 12 months: No Type of Tobacco Use: None How many years tobacco product used: 40 Does any household member use tobacco: No Alcohol Use: None Do you use any recreational Drugs:: No Lives With: Alone Lives Where: Home - infectious screening In the last 2 months have you had wt loss of >10#?: NO Have you had fever, night sweats or hemotysis?: No Have you traveled outside the country in the last 6 months?: No Isolation: Standard ROS - Review of Systems Constitutional: No Symptoms Reported Eyes: No Symptoms Reported ENTM: Mouth Pain, Mouth Swelling Respiratoy: No Symptoms Reported Cardiovascular: No Symptoms Reported Gastrointestinal/Abdominal: No Symptoms Reported Genitourinary: No Symptoms Reported Neurological: No Symptoms Reported Musculoskeletal: No Symptoms Reported Integumentary: No Symptoms Reported Hematologic/Lymphatic: No Symptoms Reported Endocrine: No Symptoms Reported Psychiatric: No Symptoms Reported PE - Vital Signs Vitals: Temperature 98.6 F Pulse Rate 98 Respiratory Rate 18 Blood Pressure [Left Arm] 113/71 Blood Pressure [Right Arm] 156/86 Blood Pressure 127/75 O2 Sat by Pulse Oximetry 99 - General Limitations: No Limitations General Appearance: Alert, In No Apparent Distress - Head Head Exam: Normal Inspection - Eyes Eye exam: Normal Appearance - ENT ENT Exam: Normal Exam External Ear Exam: Normal External Inspection TM/Canal Exam: Bilateral Normal Nose Exam: Normal Nose Exam Mouth Exam: Other (multiple dental caries. gingivitis and swelling right anterior incisor area on mandibule ) Throat Exam: Normal Inspection - Neck Neck Exam: Normal Inspection, Full ROM, Trachea Midline - Chest Chest Inspection: Normal Inspection, Symmetric Chest Wall Rise - Respiratory Respiratory Exam: Normal Lung Sounds Bilat - Cardiovascular Cardiovascular Exam: Regular Rate, Normal Rhythm - Abdominal Exam Abdominal Exam: Normal Inspection, Normal Bowel Sounds, Soft - Extremities Extremities Exam: Normal Inspection, Full ROM - Back Back Exam: Normal Inspection - Neurologic Neurological Exam: Alert, Oriented X3, CN II-XII Intact - Psychiatric Psychiatric Exam: Normal Affect, Normal Mood - Skin Skin Exam: Warm, Dry, Intact, Normal Color - Diagnosis Discharge Problem: Pain due to dental caries, Gingivitis - Discharge Plan Disposition: HOME, SELF-CARE Condition: Stable - Follow ups/Referrals Follow ups/Referrals: NFD,None [Primary Care Provider] - 3 days - Instructions
== END 2017-02-03 08:53 | disposition home or self-care (01) ==
LOC: ER 08:08
DX: K02.9 Dental caries, unspecified (principal); K05.10 Chronic gingivitis, plaque induced
CPT/HCPCS: 99282

== ENCOUNTER 2017-02-21 18:15 | Emergency (ER) | payer OTHER ==
[2017-02-21 18:20] VITALS: BMI 17.2
[2017-02-21] MEDS ORDERED: VALIUM INJ IM ONE (18:35)
[2017-02-21] MEDS ORDERED: VALIUM INJ ONE (18:36)
[2017-02-21] MEDS ORDERED: TORADOL 60 MG VIAL IM ONE (19:33)
[2017-02-21] MEDS ORDERED: TORADOL 60 MG VIAL ONE (19:35)
--- NOTE | 2017-02-21 19:47 | DR.GENAD ---
HPI - PCP Primary Care Physician: GISELLE - Complaint/Symptoms Chief Complaint Doctors Comments: Patient reports that she bending over putting the sheet on bed and her got severe lower back pain. She has a history of severe osteoarthritis. Chief Complaint:: PATIENT STATED THAT SHE HAS SEVERE BACK PAIN. SHE HAS DISC PROBLEMS AND A MASS WITH LESIONS ON HER SPINE. SHE STATED TAKES TYLENOL #4 BUT HAS NOT HELPED WITH THIS PAIN. - Source History Provided: Patient - Mode of Arrival Mode of Arrival: Ambulatory - Timing Onset of Chief Complaint: 02/21/17 PMH - PMH Past Medical History: Yes Past Medical History: Anxiety, Hypertension Past Medical History Comment: BACK PAIN Past Surgical History: Yes Surgical History: Hysterectomy, Ortho Surgery - Family History History of Family Medical Conditions: Yes Family Medical History: Cancer, [place], Coronary Artery Disease, Sudden Cardiac , Hypertension - Social History Does patient currently use any type of tobacco product: Yes Have you used tobacco products in the last 12 months: Yes Type of Tobacco Use: Cigarettes Does any household member use tobacco: No Alcohol Use: None Do you use any recreational Drugs:: No Lives With: Alone Lives Where: Home - infectious screening In the last 2 months have you had wt loss of >10#?: NO Have you had fever, night sweats or hemotysis?: No Have you traveled outside the country in the last 6 months?: No Isolation: Standard ROS - Review of Systems Eyes: No Symptoms Reported ENTM: No Symptoms Reported Respiratoy: No Symptoms Reported Cardiovascular: No Symptoms Reported Gastrointestinal/Abdominal: No Symptoms Reported Genitourinary: No Symptoms Reported Neurological: No Symptoms Reported Musculoskeletal: Muscle Pain, Muscle Stiffness Integumentary: No Symptoms Reported Hematologic/Lymphatic: No Symptoms Reported Endocrine: No Symptoms Reported Psychiatric: No Symptoms Reported All Other Systems: Reviewed and Negative PE - Vital Signs Vitals: Temperature 98.7 F Pulse Rate 94 Respiratory Rate 20 Blood Pressure [Left Arm] 113/71 Blood Pressure [Right Arm] 156/86 Blood Pressure 139/74 O2 Sat by Pulse Oximetry 96 - General General Appearance: Alert - Head Head Exam: Normal Inspection - Eyes Eye exam: PERRL, EOMI - ENT ENT Exam: Normal Exam External Ear Exam: Normal External Inspection TM/Canal Exam: Bilateral Normal Nose Exam: Normal Nose Exam Mouth Exam: Normal Inspection Throat Exam: Normal Inspection - Neck Neck Exam: Normal Inspection, Full ROM - Chest Chest Inspection: Normal Inspection - Respiratory Respiratory Exam: Normal Lung Sounds Bilat Respiratory Exam: Bilateral Clear to Auscultation - Cardiovascular Cardiovascular Exam: Regular Rate - Abdominal Exam Abdominal Exam: Normal Inspection Abdominal Tenderness: negative: RUQ, RLQ, LUQ, LLQ, Epigastrium, Suprapubic, Diffuse, Mild, Moderate, Severe, Other - Extremities Extremities Exam: Normal Inspection, Full ROM - Back Back Exam: Normal Inspection, Tenderness (lumbar spine -surgical scars noted ) - Neurologic Neurological Exam: Alert, Oriented X3, CN II-XII Intact - Psychiatric Psychiatric Exam: Normal Affect - Skin Skin Exam: Warm, Dry, Intact Course - Treatment Treatment: Reviewed previous radiograph results. - Diagnosis Discharge Problem: Muscle spasm of back Acute back pain Qualifiers: Back pain location: low back pain Back pain laterality: midline Sciatica presence: unspecified whether sciatica present Qualified Code(s): M54.5 - Low back pain - Discharge Plan Condition: Stable - Follow ups/Referrals Follow ups/Referrals: MERYL DESAI [Primary Care Provider] - 3 days - Instructions
[2017-02-21 20:41] VITALS: BP 129/68
== END 2017-02-21 20:40 | disposition home or self-care (01) ==
LOC: ER 18:24
DX: M62.830 Muscle spasm of back (principal); M54.5 Low back pain
CPT/HCPCS: 96372; 99282; J1885; J3360

== ENCOUNTER → 2017-03-04 | Outpatient (CLI) | payer OTHER ==
[2017-02-21 20:41] VITALS: BP 129/68
--- NOTE | 2017-03-04 16:41 | NM ---
HISTORY: Breast carcinoma Study: Whole-body nuclear medicine bone scan Comparison: Multiple previous exams dating back to February 23, 2016 Technique: Whole-body nuclear medicine scintigraphy was performed following the administration of 25. 5 mCi of technetium 99 labeled MDP intravenously. Findings: There is no focal asymmetric radiotracer accumulation within the axial or appendicular skeleton to blankenship ggest acute abnormality or metastatic disease. There is uptake from the level of the knee to the foot in the right lower extremity related to previous trauma, surgery, and DJD. There is probable degener ative uptake within the left knee and ankle/foot as well. There is degenerative uptake in the lower l umbar spine. There is normal background uptake within the soft tissues and renal collecting system. IMPRESSION: No findings of osseous metastatic disease. Reported By:
== END ==
LOC: RAD 11:22
PROVIDERS: ATTEND Internal Medicine
DX: Z85.3 Personal history of malignant neoplasm of breast (principal)
CPT/HCPCS: 78306; A9503

== ENCOUNTER → 2017-04-24 | Outpatient (CLI) | payer OTHER | LOC: RAD 15:19 | PROVIDERS: ATTEND Internal Medicine Cardiovascular Disease | DX: R01.1 Cardiac murmur, unspecified (principal) | CPT/HCPCS: 93306 ==

== ENCOUNTER → 2017-04-29 | Outpatient (CLI) | payer OTHER ==
--- NOTE | 2017-04-29 13:56 | MRI ---
MRI OF THE LUMBAR SPINE WITHOUT IV CONTRAST CLINICAL INDICATION: Chronic low back pain TECHNIQUE: Pre-contrast sagittal T1-, T2-, and T2-w fat-saturated images, and axial T1- and T2-w imag es of the lumbar spine. COMPARISON: Lumbar spine MRI 03/19/2016 FINDINGS: For purposes of this dictation, it is assumed that there are 5 [id number], lumbar-type vertebrae , and the most caudal fully segmented lumbar vertebra is labeled L5. The lumbar spine demonstrates normal alignment. Vertebral bodies are normal in height. There is a nor mal marrow signal pattern. Severe multilevel degenerative disc disease throughout the lumbar spine wh ich looks grossly similar prior. The conus medullaris terminates at a normal level and the nerve root s of the cauda equina appear normal. Simple bilateral renal cysts.. Evaluation of the individual levels demonstrates: L1-2: Circumferential disc bulge with left greater than right facet arthropathy resulting in moderate to severe central stenosis with effacement of the left lateral recess. Moderate bilateral neural for aminal stenosis. L2-3: Circumferential disc bulge eccentrically prominent to the left with effacement left lateral rec ess, severe central stenosis and severe left-sided neural foraminal stenosis. Similar to prior. L3-4: Circumferential disc bulge, facet hypertrophy and ligamentum flavum redundancy resulting in sev ere central stenosis and severe bilateral neural foraminal stenosis. Similar to priors. L4-5: Circumferential disc bulge, facet hypertrophy and ligamentum flavum redundancy resulting in sev ere central stenosis and severe right, moderate left neural foraminal stenosis, similar prior. L5-S1: Mild circumferential disc bulge without significant central stenosis or neural foraminal steno sis. IMPRESSION: 1. Severe multilevel disc disease with varying degrees of up to severe stenosis as above. Findings ar e similar to prior examination an worst at L3-L4 and L4-5. Reported By:
== END ==
LOC: RAD 09:08
PROVIDERS: ATTEND Internal Medicine
DX: M51.36 Other intervertebral disc degeneration, lumbar region (principal)
CPT/HCPCS: 72148

== ENCOUNTER → 2017-05-16 | Outpatient (CLI) | payer OTHER ==
--- NOTE | 2017-05-16 15:56 | CT ---
HISTORY: Bilateral hip pain, history of breast cancer Study: CT pelvis without contrast Comparison: Bone scan 03/04/2017, CT 05/28/2014 Technique: Multiple axial images of pelvis were obtained after/ without/ both prior to and after the administrat ion of IV contrast. Dose reduction techniques including Automated Exposure Control (AEC) and adjustm ent of mA and kV were utilized. Findings: There are advanced discogenic degenerative changes at L4-5. There are arthritic changes of the bilate ral hips without evidence of acute fracture or dislocation. No destructive osseous lesions are identi fied. No evidence of osteonecrosis or femoroacetabular impingement. The bony pelvis appears intact. S clerotic foci seen within the bilateral acetabula are chronic and unchanged dating back to 2014, comp atible with benign bone islands. The visualized intrapelvic contents are unremarkable. Atheroscleroti c disease is noted. No free fluid is identified. IMPRESSION: 1. Chronic degenerative changes of the pelvis. No acute osseous abnormality. Reported By:
== END ==
LOC: RAD 14:12
PROVIDERS: ATTEND Nurse Practitioner Family
DX: M25.551 Pain in right hip (principal); M25.552 Pain in left hip
CPT/HCPCS: 72192

== ENCOUNTER 2017-06-16 20:25 | Emergency (ER) | payer OTHER ==
[2017-06-16 20:33] VITALS: BMI 16.2
[2017-06-16] MEDS ORDERED: SOLU-Medrol 125 MG VIAL IVP ONE (20:55)
[2017-06-16] MEDS ORDERED: DUONEB 0.5 MG/3 MG NEB ONE (20:55)
[2017-06-16] MEDS ORDERED: NARCAN INJ IVP ONE (20:57)
[2017-06-16] MEDS ORDERED: NARCAN INJ ONE ×2 (20:58→21:11)
--- NOTE | 2017-06-16 20:58 | DR.AMS ---
HPI - Time Seen Time seen: 21:45 - PCP Primary Care Physician: MERYL DESAI - HPI Comment HPI Comment: NOTED - Complaint Cheif Complaint Doctors Comments: AMS, SOB AND LOW OXYGEN SATURATION. TODAY PATIENT LESS RESPONSIVE TO RELATIVES. SHE IS NOT BEING RUNNING FEVER OR VOMITING. NO DYSURIA WAS NOTED OR SEVERE HEADACHE. Chief Complaint:: STARTED BEING LETHARGIC ABOUT 3 DAY S AGO AND HAS BEEN FALLING LAST NIGHT SEVERAL TIMES - Reviewed Nurses Notes Reviewed: Yes - Source History Provided: Family Member - Mode of Arrival Mode of Arrival: Wheelchair - Timing Onset of Chief Complaint: 06/13/17 Came On: Suddenly Symptoms: Worsening - Duration Duration: Constant Duration: Days - Quality Quality: Decreased Alertness, Change in Behavior, Confusion - Severity Severity: Severe - Context Recent: Cough History Of: None - Associated Signs and Symptoms Associated Signs and Symptoms: Generalized Weakness, Change in Behavior, Confusion, Decreased LOC PMH - PMH Past Medical History: Yes Past Medical History: Anxiety, Hypertension Past Medical History Comment: BREAST CA Past Surgical History: Yes Surgical History: Cholecystectomy, Hysterectomy, Mastectomy, Ortho Surgery - Family History History of Family Medical Conditions: Yes Family Medical History: Cancer, [place], Heart Failure, Hypertension - Social History Does patient currently use any type of tobacco product: Yes Have you used tobacco products in the last 12 months: Yes Type of Tobacco Use: Cigarettes Does any household member use tobacco: Yes Alcohol Use: None Do you use any recreational Drugs:: No Lives With: Family Lives Where: Home - infectious screening In the last 2 months have you had wt loss of >10#?: NO Have you had fever, night sweats or hemotysis?: No Have you traveled outside the country in the last 6 months?: No Isolation: Standard ROS - Review of Systems Constitutional: Weakness, Fatigue Eyes: negative: Eye Pain, Discharge ENTM: negative: Ear Pain, Nose Discharge, Nose Congestion, Throat Pain Respiratoy: Non-Productive Cough, Short of Breath, Wheezing Cardiovascular: Edema Gastrointestinal/Abdominal: Abdominal Pain Neurological: Weakness Musculoskeletal: Muscle Pain Integumentary: Other (EDEMA) Hematologic/Lymphatic: Easy Bleeding, Easy Bruising Endocrine: No Symptoms Reported All Other Systems: Reviewed and Negative (HISTORY PER PATIENTS DAUGHTER.) PE - Vitals Vital Signs: Temp Pulse Pulse Resp BP BP BP 06/17/17 00:45 98 H 22 129/60 06/17/17 00:30 83 16 112/56 06/17/17 00:15 83 16 116/57 06/17/17 00:00 79 14 94/56 06/16/17 23:45 79 14 94/55 06/16/17 23:00 79 14 93/55 06/16/17 22:00 99 H 16 108/54 06/16/17 21:11 90 06/16/17 20:39 97.5 F L 95 H 24 109/53 06/16/17 20:26 97.6 F 109 H 20 109/55 02/21/17 20:39 129/68 129/68 11/21/16 12:00 156/86 Pulse Ox 06/17/17 00:45 95 06/17/17 00:30 93 L 06/17/17 00:15 93 L 06/17/17 00:00 92 L 06/16/17 23:45 94 L 06/16/17 23:00 94 L 06/16/17 22:00 98 06/16/17 21:11 99 06/16/17 20:39 71 L 06/16/17 20:26 55 L 02/21/17 20:39 11/21/16 12:00 - General Limitations: Altered Mental Status General Appearance: Other (SLEEPY AND CONFUSE.) - Head Head Exam: Other (BRUISES, OLD ON FOREHEAD.) Head Exam Physical: Other (NONE SEEN.) - Eyes Eye exam: PERRL. negative: Scleral Icterus, Conjunctival Injection, Periorbital Swelling, Periorbital Tenderness Pupils: Regular, Round: Bilateral, Reactive: Bilateral - ENT ENT Exam: Normal External Ear Exam External Ear Exam: Normal External Inspection TM/Canal Exam: Bilateral Normal Nose Exam: Normal Nose Exam Mouth Exam: negative: Drooling, Tongue Elevation, Tongue Swelling, Laceration Throat Exam: negative: Tonsillar Erythema, Tonsillomegaly, Tonsillar Exudate - Neck Neck Exam: Trachea Midline - Chest Chest Inspection: Symmetric Chest Wall Rise - Respiratory Respiratory Exam: Respiratory Distress Respiratory Exam: Bilateral Wheezing, Bilateral Rhonchi, Lower Wheezing, Lower Rhonchi - Cardiovascular Cardiovascular Exam: Regular Rate, Normal Rhythm, Normal Heart Sounds - Abdominal Exam Abdominal Exam: Normal Bowel Sounds, Soft. negative: Tenderness - Extremities Extremities Exam: Edema - Back Back Exam: Paraspinal Tenderness - Neurological Neurological Exam: Other (SLEEPY AND CONFUSE.) Speech: Other (CONFUSE.) Upper Motor Neuron Exam: Babinski Sign: Normal - Skin Skin Exam: Erythema MDM - Additional Information Obtained Additional Information Obtained From: Family - Differential Diagnosis Metabolic: Dehydration, Hypercalcemia, Hypernatremia, Hypoglycemia, Hyponatremia , Hypoxemia Structural: CVA Infectious: Sepsis, UTI Course - Treatment Treatment: SEE ORDERS. - Consultation Consultation Comments: PATIENT ACCEPTED FOR TRANSFER BY TIANNA DELEON, [facility] IN [place]. - Education/Counseling Education/Counseling: Family, Education Educated On: Diagnosis ROR - Labs Reviewed Laboratory Results Reviewed?: Yes Result Diagrams: 06/16/17 20:50 06/16/17 20:50 Laboratory: WBC 12.8 X10^3/uL (3.6-10.0) H 06/16/17 20:50 RBC 4.12 X10^6/uL (3.5-5.4) 06/16/17 20:50 Hgb 12.7 g/dL (12.0-16.0) 06/16/17 20:50 Hct 35.9 % (36.0-47.0) L 06/16/17 20:50 MCV 87.1 fL (80.0-100.0) 06/16/17 20:50 MCH 30.8 pg (27.0-34.0) 06/16/17 20:50 MCHC 35.4 g/dL (33.0-35.0) H 06/16/17 20:50 RDW 13.1 % (11.6-16.5) 06/16/17 20:50 Plt Count 285 X10^3/uL (150.0-450.0) 06/16/17 20:50 Plt Count Comment Adequate (ADEQUATE) 06/16/17 20:50 MPV 6.9 fL (7.4-11.0) L 06/16/17 20:50 Neut % (Auto) 98.4 % (42.0-75.0) H 06/16/17 20:50 Lymph % (Auto) 1.2 % (21.0-51.0) L 06/16/17 20:50 [place] % (Auto) 0.1 % (0.0-13.0) 06/16/17 20:50 Eos % (Auto) 0.0 % (0.9-2.9) L 06/16/17 20:50 Baso % (Auto) 0.3 % (0.2-1.0) 06/16/17 20:50 Neut # (Auto) 12.6 x10^3/uL (2.2-4.8) H 06/16/17 20:50 Lymph # (Auto) 0.1 X10^3/uL (1.3-2.9) L 06/16/17 20:50 [place] # (Auto) 0 x10^3/uL (0.3-0.8) L 06/16/17 20:50 Eos # (Auto) 0.0 x10^3/uL (0.0-0.2) 06/16/17 20:50 Baso # (Auto) 0.0 X10^3/uL (0.0-0.1) 06/16/17 20:50 Absolute Nucleated RBC 0.1 /100WBC 06/16/17 20:50 Total Counted 100 06/16/17 20:50 Neutrophils % (Manual) 74 % (39-76) 06/16/17 20:50 Band Neutrophils % 22 % (0-10) H 06/16/17 20:50 Lymphocytes % (Manual) 2 % (13-43) L 06/16/17 20:50 Monocytes % (Manual) 2 % (4-9) L 06/16/17 20:50 Plt Morphology Comment Normal (NORMAL) 06/16/17 20:50 RBC Morphology Normal (NORMAL) 06/16/17 20:50 INR Target Range - 06/16/17 20:50 INR 1.19 (0.8-1.3) 06/16/17 20:50 APTT 34.9 SECONDS (22.9-36.5) 06/16/17 20:50 PTT Comment - 06/16/17 20:50 D-Dimer 2650 ng/mL (0-400) H* 06/16/17 20:50 Sample Site Right brachial 06/16/17 21:52 ABG pH 7.400 (7.35-7.45) 06/16/17 21:52 ABG pCO2 42.0 mmHg (35.0-45.0) 06/16/17 21:52 ABG pO2 119.0 mmHg (80.0-100.0) H 06/16/17 21:52 ABG HCO3 26.0 mmol/L (22-26) 06/16/17 21:52 ABG O2 Saturation 99.0 % (90-100) 06/16/17 21:52 ABG Base Excess 1.0 mmol/L (-2.0-2.0) 06/16/17 21:52 Ronen Test Na 06/16/17 21:52 A-a Gradient 542.0 mmHg 06/16/17 21:52 FiO2 100.000 06/16/17 21:52 Blood Gas Comments Jim well jts 06/16/17 21:52 Sodium 118 mmol/L (136-145) L* 06/16/17 20:50 Corrected Sodium TNP 06/16/17 20:50 Potassium 2.3 mmol/L (3.5-5.1) L* 06/16/17 20:50 Chloride 81 mmol/L (98-107) L 06/16/17 20:50 Carbon Dioxide 24.5 mmol/L (21-32) 06/16/17 20:50 BUN 26 mg/dL (7-18) H 06/16/17 20:50 Creatinine 0.89 mg/dL (0.55-1.02) 06/16/17 20:50 Est GFR (MDRD) Af Amer > 60 (>60) 06/16/17 20:50 Est GFR (MDRD) Non-Af > 60 (>60) 06/16/17 20:50 Glucose 100 mg/dL (65-99) H 06/16/17 20:50 Lactic Acid 1.3 mmol/L (0.4-2.0) 06/16/17 22:54 Calcium 8.7 mg/dL (8.5-10.1) 06/16/17 20:50 Corrected Calcium 10.1 mg/dL (8.5-10.1) 06/16/17 20:50 Total Bilirubin 0.40 mg/dL (0.2-1.0) 06/16/17 20:50 AST 34 Units/L (15-37) 06/16/17 20:50 ALT 18 Units/L (12-78) 06/16/17 20:50 Alkaline Phosphatase 83 Units/L (46-116) 06/16/17 20:50 Creatine Kinase 108 Units/L (26-192) 06/16/17 20:50 CK-MB (CK-2) 4.6 ng/mL (0-4.0) H* 06/16/17 20:50 CK/CKMB % Calc 4.3 % (<4) 06/16/17 20:50 Troponin I < 0.02 ng/mL (0-1.5) 06/16/17 20:50 C-Reactive Protein 291.20 mg/L (0-3.0) H 06/16/17 22:54 Total Protein 6.6 g/dL (6.4-8.2) 06/16/17 20:50 Albumin 2.2 g/dL (3.4-5.0) L 06/16/17 20:50 Globulin 4.4 g/dL (2.5-4.5) 06/16/17 20:50 Albumin/Globulin Ratio 0.5 Ratio (1.1-2.1) L 06/16/17 20:50 Specimen Type Catherized urine 06/16/17 21:00 Urine Color Yellow (YELLOW) 06/16/17 21:00 Urine Appearance Clear (CLEAR) 06/16/17 21:00 Urine pH 5.0 (5.0 - 8.0) 06/16/17 21:00 Ur Specific [place] 1.015 (1.000-1.030) 06/16/17 21:00 Urine Protein Negative (NEGATIVE) 06/16/17 21:00 Urine Glucose (UA) Negative (NEGATIVE) 06/16/17 21:00 Urine Ketones Negative (NEGATIVE) 06/16/17 21:00 Urine Occult Blood 2+ (NEGATIVE) 06/16/17 21:00 Urine Nitrite Negative (NEGATIVE) 06/16/17 21:00 Urine Bilirubin Negative (NEGATIVE) 06/16/17 21:00 Urine Urobilinogen Normal (NORMAL) 06/16/17 21:00 Ur Leukocyte Esterase Negative (NEGATIVE) 06/16/17 21:00 Urine RBC 0-2 /HPF (NONE SEEN) 06/16/17 21:00 Urine WBC 0-2 /HPF (NONE SEEN) 06/16/17 21:00 Ur Squamous Epith Cells Rare /HPF (NEGATIVE) 06/16/17 21:00 Urine Bacteria Negative /HPF (NEGATIVE) 06/16/17 21:00 Ur Culture Indicated? No/not indicated 06/16/17 21:00 Urine Opiates Screen Positive (NEG=<300) A 06/16/17 21:00 Urine Methadone Screen Negative (NEG=<300) 06/16/17 21:00 Ur Barbiturates Screen Negative (NEG=<200) 06/16/17 21:00 Ur Phencyclidine Scrn Negative (NEG=<25) 06/16/17 21:00 Ur Amphetamines Screen Negative (NEG=<1000) 06/16/17 21:00 U Benzodiazepines Scrn Negative (NEG=<200) 06/16/17 21:00 Urine Cocaine Screen Negative (NEG=<300) 06/16/17 21:00 U Marijuana (THC) Screen Negative (NEG=<50) 06/16/17 21:00 - XRAY XRAY Interpreted by: Radiologist XRAY Findings: REPORT DISCUSS WITH FAMILY. - EKG Rhythm: NSR (EKG NOTED) - Diagnosis Discharge Problem: Hyponatremia, Hypokalemia Altered mental state Qualifiers: Altered mental status type: unspecified Qualified Code(s): R41.82 - Altered mental status, unspecified Pneumonia Qualifiers: Pneumonia type: due to unspecified organism Laterality: bilateral Lung location : unspecified part of lung Qualified Code(s): J18.9 - Pneumonia, unspecified organism - Discharge Plan Dis[facility]: [facility] Condition: Stable - Follow ups/Referrals Follow ups/Referrals: MERYL DESAI [Primary Care Provider] - 3 days - Instructions
[2017-06-16] MEDS ORDERED: NS 1000 ML 1,000 ML IV SCH (21:00)
[2017-06-16 21:06] LABS: BASOPHILS % (AUTO) 0.3 % (0.2-1.0); HEMATOCRIT 35.9 % (36.0-47.0); HEMOGLOBIN 12.7 g/dL (12.0-16.0); LYMPHOCYTES # (AUTO) 0.1 X10^3/uL (1.3-2.9); LYMPHOCYTES % (AUTO) 1.2 % (21.0-51.0); MEAN CORPUSCULAR HEMOGLOBIN 30.8 pg (27.0-34.0); MEAN CORPUSCULAR HGB CONC 35.4 g/dL (33.0-35.0); MEAN CORPUSCULAR VOLUME 87.1 fL (80.0-100.0); MEAN PLATELET VOLUME 6.9 fL (7.4-11.0); MONOCYTES # (AUTO) 0 x10^3/uL (0.3-0.8); MONOCYTES % (AUTO) 0.1 % (0.0-13.0); NEUTROPHILS # (AUTO) 12.6 x10^3/uL (2.2-4.8); NEUTROPHILS % (AUTO) 98.4 % (42.0-75.0); PLATELET COUNT 285 X10^3/uL (150.0-450.0); RED BLOOD COUNT 4.12 X10^6/uL (3.5-5.4); RED CELL DISTRIBUTION WIDTH 13.1 % (11.6-16.5); WHITE BLOOD COUNT 12.8 X10^3/uL (3.6-10.0)
[2017-06-16] MEDS ORDERED: SOLU-Medrol 125 MG VIAL ONE (21:08)
[2017-06-16] MEDS ORDERED: DUONEB 0.5 MG/3 MG ONE (21:08)
[2017-06-16] MEDS ORDERED: NS 1000 ML 1,000 ML ONE (21:09)
[2017-06-16 21:27] LABS: BAND NEUTROPHILS % 22 % (0-10); PLATELET MORPHOLOGY COMMENT NORMAL (NORMAL)
[2017-06-16 21:32] LABS: BILIRUBIN,URINE NEGATIVE (NEGATIVE); BLOOD/HEMOGLOBIN,URINE 2+ (NEGATIVE); GLUCOSE, URINE NEGATIVE (NEGATIVE); KETONES,URINE NEGATIVE (NEGATIVE); LEUKOCYTE ESTERASE ,URINE NEGATIVE (NEGATIVE); NITRITES,URINE NEGATIVE (NEGATIVE); PROTEIN,URINE NEGATIVE (NEGATIVE); UROBILINOGEN,URINE NORMAL (NORMAL)
[2017-06-16 21:44] LABS: APPEARANCE,URINE CLEAR (CLEAR); COLOR,URINE YELLOW (YELLOW)
[2017-06-16 21:45] LABS: BACTERIA,URINE NEGATIVE /HPF (NEGATIVE); RBC,URINE 0-2 /HPF (NONE SEEN); SQUAMOUS EPITHELIAL CELL,UR RARE /HPF (NEGATIVE)
[2017-06-16 21:49] LABS: ALANINE AMINOTRANSFERASE 18 Units/L (12-78); ALBUMIN 2.2 g/dL (3.4-5.0); ALKALINE PHOSPHATASE 83 Units/L (46-116); ASPARTATE AMINO TRANSFERASE 34 Units/L (15-37); BLOOD UREA NITROGEN 26 mg/dL (7-18); CALCIUM 8.7 mg/dL (8.5-10.1); CARBON DIOXIDE 24.5 mmol/L (21-32); CHLORIDE 81 mmol/L (98-107); COR CA(FOR HYPOALB) 10.1 mg/dL (8.5-10.1); CREATINE KINASE 108 Units/L (26-192); CREATININE 0.89 mg/dL (0.55-1.02); TOTAL PROTEIN 6.6 g/dL (6.4-8.2); TROPONIN I < 0.02 ng/mL (0-1.5); eGFR BLACK RACES > 60 (>60); eGFR NON BLACK RACES > 60 (>60)
[2017-06-16 21:51] LABS: SODIUM 118 mmol/L (136-145)
[2017-06-16 21:53] LABS: CKMB % 4.3 % (<4); CREATINE KINASE MB 4.6 ng/mL (0-4.0)
--- NOTE | 2017-06-16 22:48 | CT ---
CT head without contrast Indication: Lethargy 3 days prior. Comparison: 06/03/2016 Technique: Axial images from the skullbase to the vertex without contrast. Coronal and sagittal refor mats provided. Findings: There is no acute intracranial hemorrhage, mass or mass effect. No extra-axial fluid collec tion or abnormal area of hypoattenuation to suggest infarction seen. Review of bone windows shows no osseous lesion. Paranasal sinuses and mastoid air cells are clear. Impression: No acute intracranial hemorrhage or change from the prior. Minimal atrophic changes noted . Reported By:
[2017-06-16] MEDS ORDERED: NS + KCL 40 MEQ/L 1,000 ML IV SCH (23:00)
--- NOTE | 2017-06-16 23:02 | CT ---
CT angiogram chest with contrast Indication: Elevated D-dimer. History of breast cancer Technique: Helical images through the chest after IV contrast. Coronal and sagittal reformats provide d. A few images provided. Comparison: 11/19/2016 CT abdomen and pelvis reviewed. Findings: Limited images through the upper abdomen demonstrate no acute abnormality. Review of bone w indows shows no destructive osseous lesion. Chest: Aortic arch branch vessels are patent. Pulmonary artery is are prominent in size, without larg e central or segmental pulmonary artery filling defect identified. Bolus timing is adequate. Heart size is prominent with shotty mediastinal lymph nodes noted, with subcarinal lymph node measuri ng 1.9 cm. There is diffuse patchy pulmonary ground-glass opacities with interlobular septal thickening common g enerally worse in the right upper lobe with areas of normal parenchyma interspersed. There is no pneu mothorax, effusion or mass seen. Impression: 1. No pulmonary thromboembolus 2. Patchy ground-glass opacities could represent atypical distribution of pulmonary edema, ARDS or pn eumonia. Lymphangitic spread of neoplasm is not completely excluded but the pattern is unusual. There fore close clinical and imaging follow-up to document resolution recommended. 3. Prominent heart size 4. Mediastinal adenopathy. Attention follow-up recommended. This could be reactive to given history, neoplasm is not excluded. Reported By:
--- NOTE | 2017-06-16 23:06 | RAD ---
Chest AP portable Indication: Breast cancer and altered mental status. Findings/impression: Diffuse bilateral pulmonary opacities are concerning for multifocal pneumonia/AR DS, worse in the right upper lobe. Given prominent heart size, edema is not completely excluded. Lymp hangitic spread of carcinoma should be excluded as well. There is no pneumothorax Reported By:
[2017-06-16 23:41] LABS: LACTIC ACID 1.3 mmol/L (0.4-2.0)
[2017-06-16] MEDS ORDERED: LEVAQUIN PREMIX IV 750 MG 750 MG/150 ML BAG IV ONE ×2 (23:44→23:48)
[2017-06-16 23:49] LABS: C-REACTIVE PROTEIN 291.2 mg/L (0-3.0)
[2017-06-17] MEDS ORDERED: NS 1000 ML 1,000 ML ONE (00:33)
[2017-06-17 01:47] VITALS: BP 129/60
== END 2017-06-17 01:05 | disposition short-term general hospital (02) ==
LOC: ER 20:25
PROC: 0T9B70Z Drainage of Bladder with Drainage Device, Via Natural or Artificial Opening (ICD-10-PCS; principal; 2017-06-16)
DX: R41.82 Altered mental status, unspecified (principal); J18.9 Pneumonia, unspecified organism; E87.1 Hypo-osmolality and hyponatremia; E87.6 Hypokalemia; R59.0 Localized enlarged lymph nodes; R94.31 Abnormal electrocardiogram [ECG] [EKG]
CPT/HCPCS: 36415; 36600; 51702; 70450; 71045; 71275; 80053; 80307; 81001; 82550; 82553; 82803; 83605; 84484; 85025; 85378; 85610; 85730; 86140; 87040; 93005; 93010; 94640; 96365; 96374; 96375; 99285; A4222; G0434; J1956; J2310; J2930; J7620

== ENCOUNTER 2017-06-28 21:40 | Emergency (ER) | payer OTHER ==
[2017-06-28 21:49] VITALS: BMI 16.8
--- NOTE | 2017-06-28 23:02 | DR.GENAD ---
HPI - PCP Primary Care Physician: KIKI - Complaint/Symptoms Chief Complaint Doctors Comments: She c/o swollen feet since her release from [facility] a couple of days ago (treated for pneumonia). There is no associated chest pain. Chief Complaint:: SWELLING, IN FEET - Nurses notes reviewed Nurses Notes Review: Yes - Source History Provided: Patient - Mode of Arrival Mode of Arrival: Ambulatory - Timing Onset of Chief Complaint: 06/26/17 PMH - PMH Past Medical History: Yes Past Medical History: Anxiety, Hypertension Past Surgical History: Yes Surgical History: Cholecystectomy, Hysterectomy, Mastectomy, Ortho Surgery - Family History History of Family Medical Conditions: Yes Family Medical History: Cancer, [place], Heart Failure, Hypertension - Social History Does patient currently use any type of tobacco product: Yes Have you used tobacco products in the last 12 months: Yes Type of Tobacco Use: Cigarettes Does any household member use tobacco: No Alcohol Use: None Do you use any recreational Drugs:: No Lives With: Family Lives Where: Home - infectious screening In the last 2 months have you had wt loss of >10#?: NO Have you had fever, night sweats or hemotysis?: No Have you traveled outside the country in the last 6 months?: No Isolation: Standard ROS - Review of Systems Constitutional: No Symptoms Reported Eyes: No Symptoms Reported ENTM: No Symptoms Reported Respiratoy: No Symptoms Reported Cardiovascular: Edema (legs). negative: Chest Pain, Palpitations, Syncope, Cyanosis, Skin Mottling, Other Gastrointestinal/Abdominal: No Symptoms Reported Genitourinary: No Symptoms Reported Neurological: No Symptoms Reported Musculoskeletal: No Symptoms Reported Integumentary: No Symptoms Reported Hematologic/Lymphatic: No Symptoms Reported Endocrine: No Symptoms Reported Psychiatric: No Symptoms Reported All Other Systems: Reviewed and Negative PE - Vital Signs Vitals: Temperature 98 F Pulse Rate 72 Respiratory Rate 16 Blood Pressure [Left Arm] 129/60 Blood Pressure [Right Arm] 156/86 Blood Pressure 97/53 O2 Sat by Pulse Oximetry 95 - General Limitations: No Limitations General Appearance: Alert, In No Apparent Distress - Head Head Exam: Normal Inspection - Eyes Eye exam: Normal Appearance - ENT ENT Exam: Normal Exam - Neck Neck Exam: Normal Inspection, Full ROM, Trachea Midline - Chest Chest Inspection: Normal Inspection, Symmetric Chest Wall Rise - Respiratory Respiratory Exam: Normal Lung Sounds Bilat - Cardiovascular Cardiovascular Exam: Regular Rate, Normal Rhythm, Normal Heart Sounds, +S1, +S2 - Abdominal Exam Abdominal Exam: Normal Inspection, Normal Bowel Sounds, Soft - Extremities Extremities Exam: Edema (1-2 + edema in both legs without erythema. There are linear surgical scars on the rt. leg.) - Back Back Exam: Normal Inspection - Neurologic Neurological Exam: Alert, Oriented X3 - Psychiatric Psychiatric Exam: Normal Affect, Normal Mood - Skin Skin Exam: Warm, Dry, Intact Course - Reevaluation 1st: Unchanged - Education/Counseling Education/Counseling: Patient, Family, Counseling (do not take the other 2 BP meds you have at home while you are taking this new rx (Lasix). Also, elevate legs while asit and as musch as possbile a other times.) ROR - Labs Reviewed Result Diagrams: 06/28/17 22:25 06/28/17 22:25 Laboratory: WBC 9.1 X10^3/uL (3.6-10.0) 06/28/17 22: RBC 3.02 X10^6/uL (3.5-5.4) L 06/28/17 22:25 Hgb 9.6 g/dL (12.0-16.0) L 06/28/17 22:25 Hct 27.1 % (36.0-47.0) L 06/28/17 22: MCV 89.8 fL (80.0-100.0) 06/28/17 22:25 MCH 31.6 pg (27.0-34.0) 06/28/17 22: MCHC 35.2 g/dL (33.0-35.0) H 06/28/17 22:25 RDW 13.4 % (11.6-16.5) 06/28/17 22:25 Plt Count 431 X10^3/uL (150.0-450.0) 06/28/17 22:25 MPV 7.7 fL (7.4-11.0) 06/28/17 22:25 Neut % (Auto) 81.8 % (42.0-75.0) H 06/28/17 22:25 Lymph % (Auto) 10.2 % (21.0-51.0) L 06/28/17 22:25 [place] % (Auto) 6.9 % (0.0-13.0) 06/28/17 22:25 Eos % (Auto) 0.7 % (0.9-2.9) L 06/28/17 22:25 Baso % (Auto) 0.4 % (0.2-1.0) 06/28/17 22:25 Neut # (Auto) 7.5 x10^3/uL (2.2-4.8) H 06/28/17 22:25 Lymph # (Auto) 0.9 X10^3/uL (1.3-2.9) L 06/28/17 22:25 [place] # (Auto) 0.6 x10^3/uL (0.3-0.8) 06/28/17 22:25 Eos # (Auto) 0.1 x10^3/uL (0.0-0.2) 06/28/17 22:25 Baso # (Auto) 0.0 X10^3/uL (0.0-0.1) 06/28/17 22:25 Absolute Nucleated RBC 0.0 /100WBC 06/28/17 22:25 Sodium 138 mmol/L (136-145) 06/28/17 22:25 Corrected Sodium 139 mmol/L (136-145) 06/28/17 22:25 Potassium 3.7 mmol/L (3.5-5.1) 06/28/17 22:25 Chloride 104 mmol/L (98-107) 06/28/17 22:25 Carbon Dioxide 30.7 mmol/L (21-32) 06/28/17 22:25 BUN 13 mg/dL (7-18) 06/28/17 22:25 Creatinine 0.56 mg/dL (0.55-1.02) 06/28/17 22:25 Est GFR (MDRD) Af Amer > 60 (>60) 06/28/17 22:25 Est GFR (MDRD) Non-Af > 60 (>60) 06/28/17 22:25 Glucose 125 mg/dL (65-99) H 06/28/17 22:25 Calcium 7.2 mg/dL (8.5-10.1) L 06/28/17 22:25 Corrected Calcium 8.6 mg/dL (8.5-10.1) 06/28/17 22:25 Total Bilirubin 0.20 mg/dL (0.2-1.0) 06/28/17 22:25 AST 20 Units/L (15-37) 06/28/17 22:25 ALT 33 Units/L (12-78) 06/28/17 22:25 Alkaline Phosphatase 93 Units/L (46-116) 06/28/17 22:25 B-Natriuretic Peptide 58.4 pg/mL (0-79) 06/28/17 22:25 Total Protein 5.2 g/dL (6.4-8.2) L 06/28/17 22:25 Albumin 2.3 g/dL (3.4-5.0) L 06/28/17 22:25 Globulin 2.9 g/dL (2.5-4.5) 06/28/17 22:25 Albumin/Globulin Ratio 0.8 Ratio (1.1-2.1) L 06/28/17 22:25 - Diagnosis Discharge Problem: Pedal edema - Discharge Plan Disposition: 01 HOME, SELF-CARE Condition: Stable - Follow ups/Referrals Follow ups/Referrals: BRAD SWANSON [Primary Care Provider] - 3 days - Instructions Instructions: Edema, [id number]
[2017-06-28 23:22] LABS: BASOPHILS % (AUTO) 0.4 % (0.2-1.0); EOSINOPHILS # (AUTO) 0.1 x10^3/uL (0.0-0.2); EOSINOPHILS % (AUTO) 0.7 % (0.9-2.9); HEMATOCRIT 27.1 % (36.0-47.0); HEMOGLOBIN 9.6 g/dL (12.0-16.0); LYMPHOCYTES # (AUTO) 0.9 X10^3/uL (1.3-2.9); LYMPHOCYTES % (AUTO) 10.2 % (21.0-51.0); MEAN CORPUSCULAR HEMOGLOBIN 31.6 pg (27.0-34.0); MEAN CORPUSCULAR HGB CONC 35.2 g/dL (33.0-35.0); MEAN CORPUSCULAR VOLUME 89.8 fL (80.0-100.0); MEAN PLATELET VOLUME 7.7 fL (7.4-11.0); MONOCYTES # (AUTO) 0.6 x10^3/uL (0.3-0.8); MONOCYTES % (AUTO) 6.9 % (0.0-13.0); NEUTROPHILS # (AUTO) 7.5 x10^3/uL (2.2-4.8); NEUTROPHILS % (AUTO) 81.8 % (42.0-75.0); PLATELET COUNT 431 X10^3/uL (150.0-450.0); RED BLOOD COUNT 3.02 X10^6/uL (3.5-5.4); RED CELL DISTRIBUTION WIDTH 13.4 % (11.6-16.5); WHITE BLOOD COUNT 9.1 X10^3/uL (3.6-10.0)
[2017-06-28 23:32] LABS: ALANINE AMINOTRANSFERASE 33 Units/L (12-78); ALBUMIN 2.3 g/dL (3.4-5.0); ALKALINE PHOSPHATASE 93 Units/L (46-116); ASPARTATE AMINO TRANSFERASE 20 Units/L (15-37); BLOOD UREA NITROGEN 13 mg/dL (7-18); CALCIUM 7.2 mg/dL (8.5-10.1); CARBON DIOXIDE 30.7 mmol/L (21-32); CHLORIDE 104 mmol/L (98-107); COR CA(FOR HYPOALB) 8.6 mg/dL (8.5-10.1); COR NA(FOR HYPERGLY) 139 mmol/L (136-145); CREATININE 0.56 mg/dL (0.55-1.02); SODIUM 138 mmol/L (136-145); TOTAL PROTEIN 5.2 g/dL (6.4-8.2); eGFR BLACK RACES > 60 (>60); eGFR NON BLACK RACES > 60 (>60)
[2017-06-29] MEDS ORDERED: LASIX PO ONE (00:01)
[2017-06-29] MEDS ORDERED: LASIX ONE (00:17)
[2017-06-29 00:20] VITALS: BP 101/58
== END 2017-06-29 00:25 | disposition home or self-care (01) ==
LOC: ER 21:40
DX: R60.9 Edema, unspecified (principal); R06.02 Shortness of breath; R73.9 Hyperglycemia, unspecified
CPT/HCPCS: 36415; 80053; 83880; 85025; 99282

== ENCOUNTER 2017-06-30 12:10 | Emergency (ER) | payer OTHER ==
--- NOTE | 2017-06-30 12:23 | DR.EXTPAIN ---
HPI - Nurses notes reviewed Nurses Notes Review: Yes - Source History Provided: Patient - Mode of arrival Mode of Arrival: Stretcher - Context History of: None PMH - PMH Past Medical History: Anxiety, Hypertension Past Surgical History: Yes Surgical History: Cholecystectomy, Hysterectomy, Mastectomy, Ortho Surgery - Family History Family Medical History: Cancer, [place], Heart Failure, Hypertension - Social History Do you use any recreational Drugs:: No ROS - Review of Systems Constitutional: No Symptoms Reported Eyes: No Symptoms Reported ENTM: No Symptoms Reported Respiratoy: No Symptoms Reported Cardiovascular: No Symptoms Reported Gastrointestinal/Abdominal: No Symptoms Reported Genitourinary: No Symptoms Reported Neurological: No Symptoms Reported Hematologic/Lymphatic: No Symptoms Reported Endocrine: No Symptoms Reported All Other Systems: Reviewed and Negative PE - Vital Signs Vitals: Temperature 98.7 F Pulse Rate 78 Respiratory Rate 20 Blood Pressure [Left Arm] 101/58 Blood Pressure [Right Arm] 156/86 Blood Pressure 108/57 O2 Sat by Pulse Oximetry 99 - General Limitations: No Limitations General Appearance: Alert - Head Head Exam: Normal Inspection - Eyes Eye exam: Normal Appearance - ENT ENT Exam: Normal External Ear Exam - Neck Neck Exam: Trachea Midline - Chest Chest Inspection: Symmetric Chest Wall Rise - Respiratory Respiratory Exam: Normal Lung Sounds Bilat Respiratory Exam: Bilateral Clear to Auscultation - Cardiovascular Cardiovascular Exam: Regular Rate, Normal Rhythm, Normal Heart Sounds - Abdominal Exam Abdominal Exam: Normal Inspection - Diagnosis Discharge Problem: Contracture, left foot Left ankle sprain Qualifiers: Encounter type: initial encounter Involved ligament of ankle: unspecified ligament Qualified Code(s): S93.402A - Sprain of unspecified ligament of left ankle, initial encounter - Discharge Plan Disposition: 01 HOME, SELF-CARE Condition: Stable - Follow ups/Referrals Follow ups/Referrals: NFD,None [Primary Care Provider] - 2 days - Instructions Instructions: Ankle Sprain, [id number], Foot Contusion Additional Instructions: RETURN TO ED IF WORSE. CONTINUE WITH MEDS AT HOME FOR PAIN.
[2017-06-30 12:28] VITALS: BP 108/57; BMI 16.8
--- NOTE | 2017-06-30 13:44 | RAD ---
Left ankle, three views Indication: Injury, edema Comparison: 02/23/2016 Findings: The ankle mortise is intact. There is no acute cortical disruption or malalignment. Distal fibular screw is grossly unchanged. Impression: No acute osseous injury to the left ankle. Reported By:
--- NOTE | 2017-06-30 13:45 | RAD ---
Left foot, three views Indication: Injury and edema Findings: There is no acute cortical disruption or malalignment. No focal soft tissue abnormality. Impression: No acute osseous injury to the left foot. Reported By:
[2017-06-30] MEDS ORDERED: TORADOL 15 MG VIAL ONE (13:52)
[2017-06-30] MEDS ORDERED: TORADOL 15 MG VIAL IVP ONE (14:22)
== END 2017-06-30 14:08 | disposition home or self-care (01) ==
LOC: ER 12:14
DX: S93.402A Sprain of unspecified ligament of left ankle, initial encounter (principal); M24.575 Contracture, left foot; Y33.XXXA Other specified events, undetermined intent, initial encounter
CPT/HCPCS: 73610; 73630; 96365; 96374; 99282; 99283

== ENCOUNTER 2017-08-17 16:35 | Inpatient (IN) ==
--- NOTE | 2017-08-17 17:58 | DR.GENAD ---
HPI - PCP Primary Care Physician: GISELLE - Complaint/Symptoms Chief Complaint Doctors Comments: Patient states her son thought she was an addict and has been giving her medicines to help her get a negative urine. States her son has been giving her demerol and has been putting medicines in her cigarettes. Patient denies chest pain or SOB. States her appetite has been decreased. States she hs been having headaches dayana denies dizziness or any recent trauma. Family members states patient has been taking out of her head. Chief Complaint:: PT'S FAMILY STATES PT HAS BEEN ATLKING OUT OF HER HEAD AND HALLUCINATING. PT STATES SHE HAS BEEN INFECTED. PT CANNOT STATE WHAT KIND OF INFECTION SHE HAS BEEN INFECTED WITH BUT FAMILY STATES SHE HAS A HISTORY OF DRUG ABUSE AND SHE STATED TO EMS SHE TAKEN TYLENOL #4 UNK AMOUNT AND XANAX UNK AMOUNT. FAMILY STATES SHE STARTED ACTING THIS WAY LAST NIGHT. - Nurses notes reviewed Nurses Notes Review: Yes - Source History Provided: Patient, Family Member, EMS - Mode of Arrival Mode of Arrival: Ambulatory - Timing Onset of Chief Complaint: 08/16/17 Came on: Gradually - Duration Duration: Constant How lon Duration: Days - Location Location: headaches - Severity Severity: Mild - Modifying Factors Worsens:: nothing Improves:: nothing PMH - PMH Past Medical History: Yes Past Medical History: Hypertension Past Surgical History: Yes Surgical History: Cholecystectomy, Hysterectomy, Mastectomy, Ortho Surgery - Family History History of Family Medical Conditions: Yes Family Medical History: Cancer, Hypertension - Social History Does patient currently use any type of tobacco product: Yes Have you used tobacco products in the last 12 months: Yes Type of Tobacco Use: Cigarettes Does any household member use tobacco: Yes Alcohol Use: None Do you use any recreational Drugs:: No Lives With: Family Lives Where: Home - infectious screening In the last 2 months have you had wt loss of >10#?: NO Have you had fever, night sweats or hemotysis?: No Have you traveled outside the country in the last 6 months?: No Isolation: Standard ROS - Review of Systems Constitutional: No Symptoms Reported, Loss of Appetite Eyes: No Symptoms Reported ENTM: No Symptoms Reported, Nose Congestion, Mouth Pain Respiratoy: No Symptoms Reported. negative: See HPI, Productive Cough, Non- Productive Cough, Moist Cough, Dry Cough, Hacking Cough, Barking Cough, Brassy Cough, Orthopnea, Short of Breath, Stridor, Wheezing, Hemoptysis, Other Cardiovascular: No Symptoms Reported. negative: See HPI, Chest Pain, Edema, Palpitations, Syncope, Cyanosis, Skin Mottling, Other Gastrointestinal/Abdominal: No Symptoms Reported. negative: See HPI, Abdominal Pain, Constipation, Diarrhea, Nausea, Vomiting, Food Intolerance, Other Genitourinary: No Symptoms Reported Neurological: No Symptoms Reported Musculoskeletal: No Symptoms Reported Integumentary: No Symptoms Reported. negative: See HPI, Change in Color, Change in Hair/Nails, Dryness, Lesions, Lumps, Rash, Itching, Wound, Bruises, Juandice, Other Hematologic/Lymphatic: No Symptoms Reported. negative: See HPI, Anemia, Blood Clots, Easy Bleeding, Easy Bruising, Swollen Glands, Lymphadenopathy, Other Endocrine: No Symptoms Reported Psychiatric: No Symptoms Reported. negative: See HPI, Anxiety, Depression, Hallucinations, Excessive crying, Suicidal, Other PE - General Limitations: No Limitations General Appearance: Alert, Anxious - Head Head Exam: Normal Inspection, Atraumatic, Normocephalic - Eyes Eye exam: Normal Appearance, PERRL, EOMI. negative: Scleral Icterus, Conjunctival Injection, Nystagmus, Miosis, Mydrasis, Periorbital Swelling, Periorbital Tenderness, Other - ENT ENT Exam: Normal Exam, Normal Oropharynx (severe dental caries with necrotic teeth to the gums), Normal External Ear Exam, Mucous Membranes Moist, TM's Normal Bilaterally External Ear Exam: Normal External Inspection TM/Canal Exam: Bilateral Normal Nose Exam: Normal Nose Exam Mouth Exam: Normal Inspection Throat Exam: Normal Inspection. negative: Tonsillar Erythema, Tonsillomegaly, Tonsillar Exudate, R Peritonsillar Mass, L Peritonsillar Mass, Muffled Voice, Other - Neck Neck Exam: Normal Inspection, Full ROM, Trachea Midline - Chest Chest Inspection: Normal Inspection, Symmetric Chest Wall Rise - Respiratory Respiratory Exam: Normal Lung Sounds Bilat Respiratory Exam: Bilateral Clear to Auscultation - Cardiovascular Cardiovascular Exam: Regular Rate, Normal Rhythm, Normal Heart Sounds - Abdominal Exam Abdominal Exam: Normal Inspection, Normal Bowel Sounds, Soft Abdominal Tenderness: negative: RUQ, RLQ, LUQ, LLQ, Epigastrium, Suprapubic, Diffuse, Mild, Moderate, Severe, Other - Extremities Extremities Exam: Normal Inspection, Full ROM, Normal Capillary Refill. negative: Tenderness, Edema, Joint Swelling, Calf Tenderness, Other - Back Back Exam: Normal Inspection, Full ROM. negative: Tenderness, (R) CVA Tenderness, (L) CVA Tenderness, Muscle Spasm, Paraspinal Tenderness, Vertebral Tenderness, Rashes, (R) Sciatic Notch Tenderness, (L) Sciatic Notch Tendern, (R ) Straight Leg Raise, (L) Straight Leg Raise, Other - Neurologic Neurological Exam: Alert, Oriented X3, CN II-XII Intact, Normal Gait. negative : Reflexes Normal (right babinski) - Psychiatric Psychiatric Exam: Normal Affect, Normal Mood - Skin Skin Exam: Warm, Dry, Intact, Normal Color - Vital Signs Vitals: Temperature 98.9 F Pulse Rate 99 Respiratory Rate 20 Blood Pressure [Left Arm] 164/72 Blood Pressure [Right Arm] 156/86 Blood Pressure 154/72 O2 Sat by Pulse Oximetry 90 Course - Consultation Called: 23:53 Call Returned: 23:54 (Dr. Richter to admit) - Education/Counseling Education/Counseling: Patient Educated On: Treatment, Diagnosis, Needs for Follow Up ROR - Labs Reviewed Laboratory Results Reviewed?: Yes (All labs and x-ray results reviewed and discussed with patient) Result Diagrams: 08/17/17 18:10 08/17/17 18:10 - XRAY XRAY Interpreted by: Radiologist (CT head: No acute intracranial abnormality noted) XRAY Findings: CXR: No acute cardiopulmonary changes noted - EKG Rate: 102 [place]: Normal Rhythm: NSR, PVCs Hypertrophy: LAE ST: Nonsp - Labs Reviewed Laboratory: WBC 9.3 X10^3/uL (3.6-10.0) 08/17/17 18:10 RBC 4.47 X10^6/uL (3.5-5.4) 08/17/17 18:10 Hgb 12.6 g/dL (12.0-16.0) 08/17/17 18:10 Hct 37.9 % (36.0-47.0) 08/17/17 18:10 MCV 84.7 fL (80.0-100.0) 08/17/17 18:10 MCH 28.3 pg (27.0-34.0) 08/17/17 18:10 MCHC 33.4 g/dL (33.0-35.0) 08/17/17 18:10 RDW 15.1 % (11.6-16.5) 08/17/17 18:10 Plt Count 281 X10^3/uL (150.0-450.0) 08/17/17 18:10 Plt Count Comment Adequate (ADEQUATE) 08/17/17 18:10 MPV 7.3 fL (7.4-11.0) L 08/17/17 18:10 Neut % (Auto) 93.1 % (42.0-75.0) H 08/17/17 18:10 Lymph % (Auto) 2.8 % (21.0-51.0) L 08/17/17 18:10 [place] % (Auto) 4.0 % (0.0-13.0) 08/17/17 18:10 Eos % (Auto) 0.0 % (0.9-2.9) L 08/17/17 18:10 Baso % (Auto) 0.1 % (0.2-1.0) L 08/17/17 18:10 Neut # (Auto) 8.7 x10^3/uL (2.2-4.8) H 08/17/17 18:10 Lymph # (Auto) 0.3 X10^3/uL (1.3-2.9) L 08/17/17 18:10 [place] # (Auto) 0.4 x10^3/uL (0.3-0.8) 08/17/17 18:10 Eos # (Auto) 0.0 x10^3/uL (0.0-0.2) 08/17/17 18:10 Baso # (Auto) 0.0 X10^3/uL (0.0-0.1) 08/17/17 18:10 Absolute Nucleated RBC 0.0 /100WBC 08/17/17 18:10 Total Counted 100 08/17/17 18:10 Neutrophils % (Manual) 89 % (39-76) H 08/17/17 18:10 Band Neutrophils % 3 % (0-10) 08/17/17 18:10 Lymphocytes % (Manual) 5 % (13-43) L 08/17/17 18:10 Monocytes % (Manual) 3 % (4-9) L 08/17/17 18:10 Plt Morphology Comment Normal (NORMAL) 08/17/17 18:10 RBC Morphology Normal (NORMAL) 08/17/17 18:10 INR Target Range - 08/17/17 18:10 INR 1.01 (0.8-1.3) 08/17/17 18:10 APTT 27.7 SECONDS (22.9-36.5) 08/17/17 18:10 PTT Comment - 08/17/17 18:10 Sodium 138 mmol/L (136-145) 08/17/17 18:10 Corrected Sodium 139 mmol/L (136-145) 08/17/17 18:10 Potassium 2.9 mmol/L (3.5-5.1) L* 08/17/17 18:10 Chloride 99 mmol/L (98-107) 08/17/17 18:10 Carbon Dioxide 21.9 mmol/L (21-32) 08/17/17 18:10 BUN 34 mg/dL (7-18) H 08/17/17 18:10 Creatinine 1.07 mg/dL (0.55-1.02) H 08/17/17 18:10 Est GFR (MDRD) Af Amer > 60 (>60) 08/17/17 18:10 Est GFR (MDRD) Non-Af 55 (>60) L 08/17/17 18:10 Glucose 142 mg/dL (65-99) H 08/17/17 18:10 Calcium 10.3 mg/dL (8.5-10.1) H 08/17/17 18:10 Corrected Calcium TNP 08/17/17 18:10 Magnesium 2.1 mg/dL (1.7-2.9) 08/17/17 18:10 Total Bilirubin 0.30 mg/dL (0.2-1.0) 08/17/17 18:10 AST 32 Units/L (15-37) 08/17/17 18:10 ALT 22 Units/L (12-78) 08/17/17 18:10 Alkaline Phosphatase 78 Units/L (46-116) 08/17/17 18:10 Creatine Kinase 199 Units/L (26-192) H 08/17/17 21:18 CK-MB (CK-2) 5.1 ng/mL (0-4.0) H* 08/17/17 21:18 CK/CKMB % Calc 2.6 % (<4) 08/17/17 21:18 Troponin I 0.05 ng/mL (0-1.5) 08/17/17 21:18 Total Protein 7.6 g/dL (6.4-8.2) 08/17/17 18:10 Albumin 3.8 g/dL (3.4-5.0) 08/17/17 18:10 Globulin 3.8 g/dL (2.5-4.5) 08/17/17 18:10 Albumin/Globulin Ratio 1.0 Ratio (1.1-2.1) L 08/17/17 18:10 Specimen Type Clean catch urine 08/17/17 20:56 Urine Color Yellow (YELLOW) 08/17/17 20:56 Urine Appearance Slightly hazy (CLEAR) 08/17/17 20:56 Urine pH 5.0 (5.0 - 8.0) 08/17/17 20:56 Ur Specific [place] 1.025 (1.000-1.030) 08/17/17 20:56 Urine Protein 3+ (NEGATIVE) 08/17/17 20:56 Urine Glucose (UA) Negative (NEGATIVE) 08/17/17 20:56 Urine Ketones 4+ (NEGATIVE) 08/17/17 20:56 Urine Occult Blood 2+ (NEGATIVE) 08/17/17 20:56 Urine Nitrite Negative (NEGATIVE) 08/17/17 20:56 Urine Bilirubin 1+ (NEGATIVE) 08/17/17 20:56 Urine Urobilinogen Normal (NORMAL) 08/17/17 20:56 Ur Leukocyte Esterase 1+ (NEGATIVE) 08/17/17 20:56 Urine RBC 3-5 /HPF (NONE SEEN) 08/17/17 20:56 Urine WBC 3-5 /HPF (NONE SEEN) 08/17/17 20:56 Ur Squamous Epith Cells Rare /HPF (NEGATIVE) 08/17/17 20:56 Amorphous Sediment 2+ /HPF (NEGATIVE) 08/17/17 20:56 Urine Bacteria Negative /HPF (NEGATIVE) 08/17/17 20:56 Hyaline Casts Numerous /LPF (NEGATIVE) 08/17/17 20:56 Granular Casts Moderate /LPF (NEGATIVE) 08/17/17 20:56 Fine Granular Casts Many /LPF (NEGATIVE) 08/17/17 20:56 Coarse Granular Casts Moderate /HPF (NEGATIVE) 08/17/17 20:56 Other Casts Few /LPF (NEGATIVE) 08/17/17 20:56 Urine Mucus Moderate /HPF (NEGATIVE) 08/17/17 20:56 Ur Culture Indicated? No/not indicated 08/17/17 20:56 Urine Opiates Screen Positive (NEG=<300) A 08/17/17 20:56 Urine Methadone Screen Negative (NEG=<300) 08/17/17 20:56 Ur Barbiturates Screen Negative (NEG=<200) 08/17/17 20:56 Ur Phencyclidine Scrn Negative (NEG=<25) 08/17/17 20:56 Ur Amphetamines Screen Negative (NEG=<1000) 08/17/17 20:56 U Benzodiazepines Scrn Negative (NEG=<200) 08/17/17 20:56 Urine Cocaine Screen Negative (NEG=<300) 08/17/17 20:56 U Marijuana (THC) Screen Negative (NEG=<50) 08/17/17 20:56 - Diagnosis Discharge Problem: Acute alteration in mental status, Abnormal cardiac enzyme level, Hypokalemia, Opiate use Hypertension Qualifiers: Hypertension type: essential hypertension Qualified Code(s): I10 - Essential ( primary) hypertension - Discharge Plan Disposition: ADMITTED INPATIENT Condition: Stable - Follow ups/Referrals Follow ups/Referrals: MERYL DESAI [Primary Care Provider] - 3 days - Instructions
[2017-08-17] MEDS ORDERED: NS 1000 ML 1,000 ML IV SCH (18:00)
[2017-08-17 18:18] LABS: BASOPHILS % (AUTO) 0.1 % (0.2-1.0); HEMATOCRIT 37.9 % (36.0-47.0); HEMOGLOBIN 12.6 g/dL (12.0-16.0); LYMPHOCYTES # (AUTO) 0.3 X10^3/uL (1.3-2.9); LYMPHOCYTES % (AUTO) 2.8 % (21.0-51.0); MEAN CORPUSCULAR HEMOGLOBIN 28.3 pg (27.0-34.0); MEAN CORPUSCULAR HGB CONC 33.4 g/dL (33.0-35.0); MEAN CORPUSCULAR VOLUME 84.7 fL (80.0-100.0); MEAN PLATELET VOLUME 7.3 fL (7.4-11.0); MONOCYTES # (AUTO) 0.4 x10^3/uL (0.3-0.8); NEUTROPHILS # (AUTO) 8.7 x10^3/uL (2.2-4.8); NEUTROPHILS % (AUTO) 93.1 % (42.0-75.0); PLATELET COUNT 281 X10^3/uL (150.0-450.0); RED BLOOD COUNT 4.47 X10^6/uL (3.5-5.4); RED CELL DISTRIBUTION WIDTH 15.1 % (11.6-16.5); WHITE BLOOD COUNT 9.3 X10^3/uL (3.6-10.0)
[2017-08-17 18:25] LABS: BAND NEUTROPHILS % 3 % (0-10)
[2017-08-17 18:26] LABS: PLATELET MORPHOLOGY COMMENT NORMAL (NORMAL)
--- NOTE | 2017-08-17 18:47 | CT ---
HISTORY: Altered mental status. Study: CT brain without contrast. Comparison: 06/16/2017. Technique: Multiple axial images of the brain were obtained from the skull base to the vertex without administra tion of IV contrast. Findings: No acute intraparenchymal hemorrhage or mass can be identified. No extra-axial fluid collections are seen. No alteration in the attenuation of the brain parenchyma can be identified to suggest acute o r subacute ischemic change. The ventricular system is symmetric and nondilated. The extracranial st ructures are grossly unremarkable. IMPRESSION: No acute intracranial process can be identified. Reported By:
--- NOTE | 2017-08-17 18:49 | RAD ---
History: Chest pain. Study: Single-view chest. Comparison: 06/16/2017. Findings: The trachea is midline. The cardiac silhouette is within normal limits. The lungs are clear without focal consolidation, pleural effusion or pneumothorax. Surgical clips project over the left axillary region. The bony thorax is grossly unremarkable. Impression: No acute cardiopulmonary process. Reported By:
[2017-08-17 19:05] LABS: ALANINE AMINOTRANSFERASE 22 Units/L (12-78); ALBUMIN 3.8 g/dL (3.4-5.0); ALKALINE PHOSPHATASE 78 Units/L (46-116); ASPARTATE AMINO TRANSFERASE 32 Units/L (15-37); BLOOD UREA NITROGEN 34 mg/dL (7-18); CALCIUM 10.3 mg/dL (8.5-10.1); CARBON DIOXIDE 21.9 mmol/L (21-32); CHLORIDE 99 mmol/L (98-107); COR NA(FOR HYPERGLY) 139 mmol/L (136-145); CREATINE KINASE 211 Units/L (26-192); CREATININE 1.07 mg/dL (0.55-1.02); MAGNESIUM 2.1 mg/dL (1.7-2.9); SODIUM 138 mmol/L (136-145); TOTAL PROTEIN 7.6 g/dL (6.4-8.2); TROPONIN I 0.03 ng/mL (0-1.5); eGFR NON BLACK RACES 55 (>60)
[2017-08-17 19:10] LABS: CKMB % 2.1 % (<4); CREATINE KINASE MB 4.4 ng/mL (0-4.0)
[2017-08-17 21:04] LABS: BILIRUBIN,URINE 1+ (NEGATIVE); BLOOD/HEMOGLOBIN,URINE 2+ (NEGATIVE); GLUCOSE, URINE NEGATIVE (NEGATIVE); KETONES,URINE 4+ (NEGATIVE); LEUKOCYTE ESTERASE ,URINE 1+ (NEGATIVE); NITRITES,URINE NEGATIVE (NEGATIVE); PROTEIN,URINE 3+ (NEGATIVE); UROBILINOGEN,URINE NORMAL (NORMAL)
[2017-08-17] MEDS: K-LYTE EFFERVESCENT PO SCH (21:06)
[2017-08-17 21:07] LABS: APPEARANCE,URINE SLIGHTLY HAZY (CLEAR); COLOR,URINE YELLOW (YELLOW)
[2017-08-17 21:34] LABS: AMORPHOUS SEDIMENT,UR 2+ /HPF (NEGATIVE); BACTERIA,URINE NEGATIVE /HPF (NEGATIVE); MUCUS,URINE MODERATE /HPF (NEGATIVE); SQUAMOUS EPITHELIAL CELL,UR RARE /HPF (NEGATIVE)
[2017-08-17 21:36] LABS: COARSE GRANULAR CASTS,URINE MODERATE /HPF (NEGATIVE); FINE GRANULAR CASTS,URINE MANY /LPF (NEGATIVE); HYALINE CASTS, URINE NUMEROUS /LPF (NEGATIVE)
[2017-08-17 21:37] LABS: GRANULAR CASTS,URINE MODERATE /LPF (NEGATIVE); OTHER CASTS, URINE FEW /LPF (NEGATIVE)
[2017-08-17 22:31] LABS: CKMB % 2.6 % (<4); CREATINE KINASE MB 5.1 ng/mL (0-4.0); TROPONIN I 0.05 ng/mL (0-1.5)
[2017-08-18 02:14] LABS: CKMB % 1.9 % (<4); CREATINE KINASE MB 4.1 ng/mL (0-4.0); TROPONIN I 0.08 ng/mL (0-1.5)
[2017-08-18 02:36] VITALS: BMI 14.9
[2017-08-18] MEDS: NS 1/2 + KCL 20 MEQ/L 1,000 ML IV SCH ×2 (02:38→14:02)
[2017-08-18 07:43] LABS: BASOPHILS % (AUTO) 0.2 % (0.2-1.0); HEMATOCRIT 33.4 % (36.0-47.0); LYMPHOCYTES # (AUTO) 0.5 X10^3/uL (1.3-2.9); LYMPHOCYTES % (AUTO) 4.4 % (21.0-51.0); MEAN CORPUSCULAR HEMOGLOBIN 27.9 pg (27.0-34.0); MEAN CORPUSCULAR VOLUME 84.5 fL (80.0-100.0); MEAN PLATELET VOLUME 7.5 fL (7.4-11.0); MONOCYTES # (AUTO) 0.9 x10^3/uL (0.3-0.8); MONOCYTES % (AUTO) 7.4 % (0.0-13.0); NEUTROPHILS # (AUTO) 10.4 x10^3/uL (2.2-4.8); PLATELET COUNT 265 X10^3/uL (150.0-450.0); RED BLOOD COUNT 3.96 X10^6/uL (3.5-5.4); RED CELL DISTRIBUTION WIDTH 14.9 % (11.6-16.5); WHITE BLOOD COUNT 11.8 X10^3/uL (3.6-10.0)
[2017-08-18 08:29] LABS: BLOOD UREA NITROGEN 29 mg/dL (7-18); CALCIUM 9.4 mg/dL (8.5-10.1); CARBON DIOXIDE 22.2 mmol/L (21-32); CHLORIDE 104 mmol/L (98-107); CREATININE 0.69 mg/dL (0.55-1.02); SODIUM 141 mmol/L (136-145); eGFR NON BLACK RACES > 60 (>60)
[2017-08-18] MEDS: LOVENOX INJ 40 MG SYR SC SCH (09:14)
[2017-08-18] MEDS: PROTONIX INJ 40 MG VIAL IVP SCH (09:14)
[2017-08-18] MEDS: K-LYTE EFFERVESCENT PO SCH (09:44)
[2017-08-18 10:41] LABS: CKMB % 1.7 % (<4); CREATINE KINASE MB 3.2 ng/mL (0-4.0); TROPONIN I 0.09 ng/mL (0-1.5)
[2017-08-18 12:23] LABS: ALANINE AMINOTRANSFERASE 20 Units/L (12-78); ALBUMIN 3.2 g/dL (3.4-5.0); ALKALINE PHOSPHATASE 67 Units/L (46-116); ASPARTATE AMINO TRANSFERASE 28 Units/L (15-37); CHOL/HDL RATIO 2.8 (0.0-5.0); CHOLESTEROL 92 mg/dL (0-200); HDL CHOLESTEROL 33 mg/dL (40-60); TOTAL PROTEIN 6.1 g/dL (6.4-8.2); TRIGLYCERIDES 58 mg/dL (0-150)
[2017-08-18] MEDS ORDERED: BUTT CREAM (COMPOUND) ONE (13:19)
[2017-08-18] MEDS ORDERED: BUTT CREAM (COMPOUND) TOP PRN (13:23)
[2017-08-18 13:35] LABS: CKMB % 1.3 % (<4); TROPONIN I 0.11 ng/mL (0-1.5)
[2017-08-18] MEDS ORDERED: ROCEPHIN VIAL 1 GRAM IV SCH (14:00)
[2017-08-18] MEDS ORDERED: ROCEPHIN VIAL 1 GRAM ONE (14:44)
[2017-08-18] MEDS ORDERED: NS 100 ML IV 100 ML IV ONE (14:45)
[2017-08-18 15:04] LABS: STOOL FOR WBC POSITIVE (NEGATIVE)
[2017-08-18] MEDS ORDERED: OFIRMEV IV 1000 MG VIAL 1,000 MG/100 ML VIAL IV ONE (16:43)
[2017-08-18] MEDS ORDERED: OFIRMEV IV 1000 MG VIAL 1,000 MG/100 ML VIAL IV PRN (16:44)
[2017-08-18] MEDS ORDERED: NS 1000 ML 1,000 ML IV ONE (16:48)
[2017-08-18 17:11] LABS: CRYPTOSPORIDIUM PARVUM ANTIGEN NEGATIVE (NEGATIVE); GIARDIA LAMBLIA ANTIGEN NEGATIVE (NEGATIVE)
[2017-08-18 17:48] LABS: BASOPHILS % (AUTO) 0.1 % (0.2-1.0); BLOOD UREA NITROGEN 20 mg/dL (7-18); CALCIUM 7.9 mg/dL (8.5-10.1); CARBON DIOXIDE 20.7 mmol/L (21-32); CHLORIDE 105 mmol/L (98-107); CREATININE 0.44 mg/dL (0.55-1.02); HEMOGLOBIN 10.6 g/dL (12.0-16.0); LYMPHOCYTES # (AUTO) 0.3 X10^3/uL (1.3-2.9); MEAN CORPUSCULAR HEMOGLOBIN 28.1 pg (27.0-34.0); MEAN CORPUSCULAR HGB CONC 33.2 g/dL (33.0-35.0); MEAN CORPUSCULAR VOLUME 84.7 fL (80.0-100.0); MEAN PLATELET VOLUME 7.4 fL (7.4-11.0); MONOCYTES % (AUTO) 7.5 % (0.0-13.0); NEUTROPHILS # (AUTO) 11.5 x10^3/uL (2.2-4.8); NEUTROPHILS % (AUTO) 90.4 % (42.0-75.0); PLATELET COUNT 253 X10^3/uL (150.0-450.0); RED BLOOD COUNT 3.78 X10^6/uL (3.5-5.4); SODIUM 141 mmol/L (136-145); WHITE BLOOD COUNT 12.7 X10^3/uL (3.6-10.0); eGFR NON BLACK RACES > 60 (>60)
[2017-08-18 17:52] LABS: ALANINE AMINOTRANSFERASE 13 Units/L (12-78); ALBUMIN 2.7 g/dL (3.4-5.0); ALKALINE PHOSPHATASE 59 Units/L (46-116); ASPARTATE AMINO TRANSFERASE 24 Units/L (15-37); COR CA(FOR HYPOALB) 8.9 mg/dL (8.5-10.1); TOTAL PROTEIN 5.6 g/dL (6.4-8.2)
[2017-08-18] MEDS ORDERED: K-LYTE EFFERVESCENT PO PRN (17:52)
[2017-08-18] MEDS ORDERED: POTASSIUM CHLORIDE LIQ 20 MEQ UDC PO PRN (17:52)
[2017-08-18] MEDS ORDERED: K-RIDER 10 MEQ/NS 100 ML 10 MEQ/100 ML BAG IV PRN (17:52)
[2017-08-18] MEDS ORDERED: POTASSIUM CHL 40 MEQ/NS 0.45% 500 ML IV PRN (17:52)
[2017-08-18] MEDS ORDERED: POTASSIUM CHL 60 MEQ/NS 0.45% 500 ML IV PRN (17:52)
[2017-08-18 18:00] LABS: BAND NEUTROPHILS % 5 % (0-10); PLATELET MORPHOLOGY COMMENT NORMAL (NORMAL)
[2017-08-18] MEDS ORDERED: XOPENEX 1.25 MG/3 ML NEBULE NEB PRN (18:41)
[2017-08-18] MEDS ORDERED: MOBIC TAB 15 MG PO PRN (21:37)
[2017-08-18] MEDS ORDERED: LIORESAL PO PRN (21:37)
[2017-08-18] MEDS ORDERED: ACETAMINOPHEN CODEINE PO PRN (21:37)
[2017-08-18] MEDS ORDERED: XANAX PO PRN (21:37)
--- NOTE | 2017-08-18 21:47 | DR.H&P ---
H&P - History & Physical for Day of: H&P Date: 08/18/17 - Chief Complaint Chief Complaint: AMS - History of Present Illness History of Present Illness: IN ED PT'S FAMILY STATES PT HAD BEEN TALKING OUT OF HER HEAD AND HALLUCINATING. PT STATES SHE HAS BEEN INFECTED. PT CANNOT STATE WHAT KIND OF INFECTION SHE HAS BEEN INFECTED WITH BUT FAMILY STATES SHE HAS A HISTORY OF DRUG ABUSE AND SHE STATED TO EMS SHE TAKEN TYLENOL #4 UNK AMOUNT AND XANAX UNK AMOUNT. FAMILY STATES SHE STARTED ACTING THIS WAY LAST NIGHT. IN ICU SETTING PATIENT IS NONCOMMICATIVE BUT WILL FOLLOW COMMANDS. PATIENT WILL NOT ANSWER QUESTIONS WHEN ASKED. WILL DRINK FROM [facility]. HAS HAD 4 LOSE, FOUL, DARK BMS. IS IN SINUS TACH WITH RATES 140-150. DID RESPSOND TO SALINE BOLUS. IS FEBRILE. - Past Medical History Past Medical History: Hypertension - Past Surgical History Surgical History: Appendectomy, Cholecystectomy, Hysterectomy, Mastectomy, Ortho Surgery - Family History Family Medical History: Cancer, [place], Coronary Artery Disease, Sudden Cardiac , Hypertension - Social History Does patient currently use any type of tobacco product: Yes Have you used tobacco products in the last 12 months: Yes Type of Tobacco Use: Cigarettes Does any household member use tobacco: Yes Alcohol Use: None Drug Use: Prescription Drugs - Medications Home Medications: morphine Allergy (Verified 06/30/17 12:13) CONTINUE taking the following medications acetaminophen-codeine [Tylenol-Codeine #4] 1 tab PO Q6H PRN 08/18/17 [History] alprazolam 1 tab PO DAILY PRN 08/18/17 [History] amlodipine 5 mg PO HS 08/18/17 [History] baclofen 1 tab PO Q8H PRN 08/18/17 [History] furosemide 20 mg PO DAILY PRN 08/18/17 [History] gabapentin 600 mg PO Q8H PRN 08/18/17 [History] lisinopril-hydrochlorothiazide 1 tab PO DAILY 08/18/17 [History] meloxicam 1 tab PO DAILY PRN 08/18/17 [History] metoprolol tartrate 0.5 tab PO BID 08/18/17 [History] potassium chloride 1 cap PO DAILY 08/18/17 [History] - Review of Systems Constitutional: No Symptoms Reported Eyes: No Symptoms Reported ENT: No Symptoms Reported Respiratory: No Symptoms Reported Cardiovascular: No Symptoms Reported Gastrointestinal: No Symptoms Reported, See HPI Genitourinary: No Symptoms Reported Musculoskeletal: No Symptoms Reported Skin: No Symptoms Reported Neurological: No Symptoms Reported, See HPI, Other - Physical Exam Vital Signs: Temperature 99.8 F Pulse Rate [Apical] 94 Pulse Rate [Left Brachial] 99 Pulse Rate 95 Respiratory Rate 25 Blood Pressure [Left Arm] 142/69 Blood Pressure [Right Arm] 155/74 Blood Pressure 154/72 O2 Sat by Pulse Oximetry 100 Oriented: Other (ALERT BUT WILL NOT TALK) Eyes: Normal Ear: Normal Nose: Normal Throat: Normal Respiratory: Clear Throughout Cardiovascular: Tachycardia : Normal Auscultation: Bowel Sounds: Normal Palpation: Normal Tenderness: Normal, Other (FOUL DIARRHEA) Skin: Normal Musculoskeletal: Normal Psychiatric: Other (WILL NOT ANSWER QUESTIONS) Mood Description: Calm Affect: Flat - Assessment/Plan (1) Sinus tachycardia Status: Acute Plan: IVF HYDRATION, METOPROLOL, TELEMETRY (2) Fever Qualifiers: Fever type: unspecified Qualified Code(s): R50.9 - Fever, unspecified Status: Acute Plan: TYLENOL, BLOOD CULTURES (3) UTI (urinary tract infection) Qualifiers: Urinary tract infection type: acute cystitis Status: Acute Plan: ROCEPHIN, CULTURE PENDING (4) Diarrhea Qualifiers: Diarrhea type: presumed infectious Qualified Code(s): R19.7 - Diarrhea, unspecified Status: Acute Plan: KEEP I&O (5) Acute alteration in mental status Status: Acute Plan: MONITOR NEURO CHECKS (6) Hypokalemia Status: Acute Plan: SUPPLEMENT INDICATED - Allergies Allergies/Adverse Reactions: Allergies Allergy/AdvReac Type Severity Reaction Status Date / Time morphine Allergy Verified 06/30/17 12:13
[2017-08-18] MEDS: LOPRESSOR TAB 25 MG PO SCH (23:59)
[2017-08-18] MEDS: FLAGYL IV PREMIX 500 MG BAG 500 MG/100 ML BAG IV SCH (23:59)
[2017-08-19] MEDS: MAGNESIUM SULFATE 1 GRAM/100 mL PREMIX 1 GM/100 ML BAG IV PRN ×4 (01:40→05:04)
[2017-08-19] MEDS: NS 1/2 + KCL 20 MEQ/L 1,000 ML IV SCH (03:00)
[2017-08-19 05:18] LABS: BASOPHILS % (AUTO) 0.1 % (0.2-1.0); HEMATOCRIT 31.3 % (36.0-47.0); HEMOGLOBIN 10.6 g/dL (12.0-16.0); LYMPHOCYTES # (AUTO) 0.4 X10^3/uL (1.3-2.9); LYMPHOCYTES % (AUTO) 3.8 % (21.0-51.0); MEAN CORPUSCULAR HEMOGLOBIN 28.7 pg (27.0-34.0); MEAN CORPUSCULAR HGB CONC 33.7 g/dL (33.0-35.0); MEAN CORPUSCULAR VOLUME 85.2 fL (80.0-100.0); MEAN PLATELET VOLUME 7.6 fL (7.4-11.0); MONOCYTES # (AUTO) 0.6 x10^3/uL (0.3-0.8); MONOCYTES % (AUTO) 5.1 % (0.0-13.0); NEUTROPHILS # (AUTO) 9.9 x10^3/uL (2.2-4.8); PLATELET COUNT 252 X10^3/uL (150.0-450.0); RED BLOOD COUNT 3.68 X10^6/uL (3.5-5.4); RED CELL DISTRIBUTION WIDTH 15.3 % (11.6-16.5); WHITE BLOOD COUNT 10.9 X10^3/uL (3.6-10.0)
[2017-08-19 05:44] LABS: ALANINE AMINOTRANSFERASE 15 Units/L (12-78); ALBUMIN 2.5 g/dL (3.4-5.0); ALKALINE PHOSPHATASE 55 Units/L (46-116); ASPARTATE AMINO TRANSFERASE 23 Units/L (15-37); BLOOD UREA NITROGEN 16 mg/dL (7-18); CALCIUM 8.4 mg/dL (8.5-10.1); CHLORIDE 108 mmol/L (98-107); CKMB % 2.3 % (<4); COR CA(FOR HYPOALB) 9.6 mg/dL (8.5-10.1); COR NA(FOR HYPERGLY) 141 mmol/L (136-145); CREATINE KINASE 64 Units/L (26-192); CREATINE KINASE MB 1.5 ng/mL (0-4.0); CREATININE 0.39 mg/dL (0.55-1.02); MAGNESIUM 2.5 mg/dL (1.7-2.9); SODIUM 141 mmol/L (136-145); TOTAL PROTEIN 5.4 g/dL (6.4-8.2); TROPONIN I 0.09 ng/mL (0-1.5); eGFR NON BLACK RACES > 60 (>60)
[2017-08-19 06:02] LABS: BAND NEUTROPHILS % 8 % (0-10)
[2017-08-19 06:03] LABS: PLATELET MORPHOLOGY COMMENT NORMAL (NORMAL)
[2017-08-19] MEDS: FLAGYL IV PREMIX 500 MG BAG 500 MG/100 ML BAG IV SCH ×3 (06:25→21:56)
--- NOTE | 2017-08-19 07:09 | RAD ---
HISTORY: Abnormal sputum Study: Chest AP portable Comparison: 08/17/2017 Findings: The trachea is midline. The cardiac silhouette is unremarkable. The lungs are hyperinflated but fabio e of acute alveolar infiltrates. No pleural effusions are identified.. The bony thorax is unremarkab le. IMPRESSION: 1. Lungs mildly hyperinflated but clear Reported By:
[2017-08-19] MEDS ORDERED: K-LYTE EFFERVESCENT PO NR (08:00)
[2017-08-19] MEDS: LOVENOX INJ 40 MG SYR SC SCH (08:23)
[2017-08-19] MEDS: LOPRESSOR TAB 25 MG PO SCH ×2 (08:25→21:56)
[2017-08-19] MEDS: PROTONIX INJ 40 MG VIAL IVP SCH (08:25)
[2017-08-19] MEDS: NS 1/2 1000 ML IV 1,000 ML with POTASSIUM CHLORIDE INJ 40 MEQ VIAL 40 MEQ IV SCH ×4 (08:26→23:04)
[2017-08-19] MEDS: ROCEPHIN 1 GRAM IV PREMIX 1 G/50 ML IV.SOLN. IV SCH (08:26)
[2017-08-19] MEDS: MICRO K EXTEN CAP 10 MEQ PO SCH (08:44)
[2017-08-19] MEDS ORDERED: NORCO 5/325 MG TAB PO PRN (09:27)
[2017-08-19] MEDS: TYLENOL #3 TAB (W/CODEINE) PO PRN ×3 (10:40→23:04)
[2017-08-19] MEDS: XOPENEX 1.25 MG/3 ML NEBULE NEB PRN ×3 (11:52→20:30)
--- NOTE | 2017-08-19 12:57 | PCM.PROG ---
Progress Note - Progress Note for Day of Date of Exam: 08/19/17 - Subjective Subjective: 66yo WF admitted with AMS. Patient had Fever and Sinus Tach yesterday. Has resolved today. Patient is alert and answers appropriately. Denies known exposure to anyone with virus. Denies abdominal pain. Has cough but denies SOB. Denies any other complaitns. - Past Medical Family Social History Past Med/Fam/Surg Hx: No changes since H&P Allergies: Allergies morphine Allergy (Verified 06/30/17 12:13) - Review of Systems ROS: No change since H&P - Vital Signs and I&O's Vital Signs: Temperature 98.2 F Pulse Rate [Apical] 73 Pulse Rate [Left Brachial] 99 Pulse Rate 67 Respiratory Rate 20 Blood Pressure [Left Arm] 171/72 Blood Pressure [Right Arm] 146/75 Blood Pressure 154/72 O2 Sat by Pulse Oximetry 96 Intake and Output: Intake & Output 08/17/17 08/18/17 08/19/17 08/20/17 11:59 11:59 11:59 11:59 Intake Total 3798 / 3798 Output Total 1700 / 1700 Balance 2097 / 2097 - Physical Exam Oriented: Other (ALERT BUT WILL NOT TALK) Eyes: Normal Ear: Normal Nose: Normal Throat: Normal Respiratory: Diminished Cardiovascular: Tachycardia : Normal Auscultation: Bowel Sounds: Normal Palpation: Normal Tenderness: Normal, Other (FOUL DIARRHEA) Skin: Normal Musculoskeletal: Normal Psychiatric: Other (WILL NOT ANSWER QUESTIONS) Mood Description: Calm Affect: Flat Speech Pattern: Clear, Appropriate - Laboratory and Diagnostics Result Diagrams: 08/19/17 04:03 08/19/17 11:51 Labs: 08/18/17 13:50 Stool Stool Culture - Preliminary 08/18/17 13:50 Stool - Final 08/18/17 13:50 Urine,[place] Urine Culture - Preliminary Laboratory WBC 10.9 X10^3/uL (3.6-10.0) H 08/19/17 04:03 RBC 3.68 X10^6/uL (3.5-5.4) 08/19/17 04:03 Hgb 10.6 g/dL (12.0-16.0) L 08/19/17 04:03 Hct 31.3 % (36.0-47.0) L 08/19/17 04:03 MCV 85.2 fL (80.0-100.0) 08/19/17 04:03 MCH 28.7 pg (27.0-34.0) 08/19/17 04:03 MCHC 33.7 g/dL (33.0-35.0) 08/19/17 04:03 RDW 15.3 % (11.6-16.5) 08/19/17 04:03 Plt Count 252 X10^3/uL (150.0-450.0) 08/19/17 04:03 Plt Count Comment Adequate (ADEQUATE) 08/19/17 04:03 MPV 7.6 fL (7.4-11.0) 08/19/17 04:03 Neut % (Auto) 91.0 % (42.0-75.0) H 08/19/17 04:03 Lymph % (Auto) 3.8 % (21.0-51.0) L 08/19/17 04:03 [place] % (Auto) 5.1 % (0.0-13.0) 08/19/17 04:03 Eos % (Auto) 0.0 % (0.9-2.9) L 08/19/17 04:03 Baso % (Auto) 0.1 % (0.2-1.0) L 08/19/17 04:03 Neut # (Auto) 9.9 x10^3/uL (2.2-4.8) H 08/19/17 04:03 Lymph # (Auto) 0.4 X10^3/uL (1.3-2.9) L 08/19/17 04:03 [place] # (Auto) 0.6 x10^3/uL (0.3-0.8) 08/19/17 04:03 Eos # (Auto) 0.0 x10^3/uL (0.0-0.2) 08/19/17 04:03 Baso # (Auto) 0.0 X10^3/uL (0.0-0.1) 08/19/17 04:03 Absolute Nucleated RBC 0.0 /100WBC 08/19/17 04:03 Total Counted 100 08/19/17 04:03 Neutrophils % (Manual) 82 % (39-76) H 08/19/17 04:03 Band Neutrophils % 8 % (0-10) 08/19/17 04:03 Lymphocytes % (Manual) 6 % (13-43) L 08/19/17 04:03 Monocytes % (Manual) 4 % (4-9) 08/19/17 04:03 Plt Morphology Comment Normal (NORMAL) 08/19/17 04:03 RBC Morphology Normal (NORMAL) 08/19/17 04:03 INR Target Range - 08/17/17 18:10 INR 1.01 (0.8-1.3) 08/17/17 18:10 APTT 27.7 SECONDS (22.9-36.5) 08/17/17 18:10 PTT Comment - 08/17/17 18:10 Sodium 141 mmol/L (136-145) 08/19/17 04:03 Corrected Sodium 141 mmol/L (136-145) 08/19/17 04:03 Potassium 3.3 mmol/L (3.5-5.1) L 08/19/17 11:51 Chloride 108 mmol/L (98-107) H 08/19/17 04:03 Carbon Dioxide 21.0 mmol/L (21-32) 08/19/17 04:03 BUN 16 mg/dL (7-18) 08/19/17 04:03 Creatinine 0.39 mg/dL (0.55-1.02) L 08/19/17 04:03 Est GFR (MDRD) Af Amer > 60 (>60) 08/19/17 04:03 Est GFR (MDRD) Non-Af > 60 (>60) 08/19/17 04:03 Glucose 112 mg/dL (65-99) H 08/19/17 04:03 Lactic Acid 0.6 mmol/L (0.4-2.0) 08/18/17 13:00 Calcium 8.4 mg/dL (8.5-10.1) L 08/19/17 04:03 Corrected Calcium 9.6 mg/dL (8.5-10.1) 08/19/17 04:03 Magnesium 2.5 mg/dL (1.7-2.9) 08/19/17 04:03 Total Bilirubin 0.30 mg/dL (0.2-1.0) 08/19/17 04:03 AST 23 Units/L (15-37) 08/19/17 04:03 ALT 15 Units/L (12-78) 08/19/17 04:03 Alkaline Phosphatase 55 Units/L (46-116) 08/19/17 04:03 Creatine Kinase 64 Units/L (26-192) 08/19/17 04:03 CK-MB (CK-2) 1.5 ng/mL (0-4.0) 08/19/17 04:03 CK/CKMB % Calc 2.3 % (<4) 08/19/17 04:03 Troponin I 0.09 ng/mL (0-1.5) 08/19/17 04:03 Total Protein 5.4 g/dL (6.4-8.2) L 08/19/17 04:03 Albumin 2.5 g/dL (3.4-5.0) L 08/19/17 04:03 Globulin 2.9 g/dL (2.5-4.5) 08/19/17 04:03 Albumin/Globulin Ratio 0.9 Ratio (1.1-2.1) L 08/19/17 04:03 Triglycerides 58 mg/dL (0-150) 08/18/17 07:11 Cholesterol 92 mg/dL (0-200) 08/18/17 07:11 LDL Cholesterol, Calc 47 mg/dL (0-100) 08/18/17 07:11 HDL Cholesterol 33 mg/dL (40-60) L 08/18/17 07:11 Cholesterol/HDL Ratio 2.8 (0.0-5.0) 08/18/17 07:11 Specimen Type Clean catch urine 08/17/17 20:56 Urine Color Yellow (YELLOW) 08/17/17 20:56 Urine Appearance Slightly hazy (CLEAR) 08/17/17 20:56 Urine pH 5.0 (5.0 - 8.0) 08/17/17 20:56 Ur Specific [place] 1.025 (1.000-1.030) 08/17/17 20:56 Urine Protein 3+ (NEGATIVE) 08/17/17 20:56 Urine Glucose (UA) Negative (NEGATIVE) 08/17/17 20:56 Urine Ketones 4+ (NEGATIVE) 08/17/17 20:56 Urine Occult Blood 2+ (NEGATIVE) 08/17/17 20:56 Urine Nitrite Negative (NEGATIVE) 08/17/17 20:56 Urine Bilirubin 1+ (NEGATIVE) 08/17/17 20:56 Urine Urobilinogen Normal (NORMAL) 08/17/17 20:56 Ur Leukocyte Esterase 1+ (NEGATIVE) 08/17/17 20:56 Urine RBC 3-5 /HPF (NONE SEEN) 08/17/17 20:56 Urine WBC 3-5 /HPF (NONE SEEN) 08/17/17 20:56 Ur Squamous Epith Cells Rare /HPF (NEGATIVE) 08/17/17 20:56 Amorphous Sediment 2+ /HPF (NEGATIVE) 08/17/17 20:56 Urine Bacteria Negative /HPF (NEGATIVE) 08/17/17 20:56 Hyaline Casts Numerous /LPF (NEGATIVE) 08/17/17 20:56 Granular Casts Moderate /LPF (NEGATIVE) 08/17/17 20:56 Fine Granular Casts Many /LPF (NEGATIVE) 08/17/17 20:56 Coarse Granular Casts Moderate /HPF (NEGATIVE) 08/17/17 20:56 Other Casts Few /LPF (NEGATIVE) 08/17/17 20:56 Urine Mucus Moderate /HPF (NEGATIVE) 08/17/17 20:56 Ur Culture Indicated? No/not indicated 08/17/17 20:56 Stool Description 5g,greenish/brown, 08/18/17 13:50 Stl Occult Blood (IFOB) Positive (NEGATIVE) A 08/18/17 13:50 Stool for White Cells Positive (NEGATIVE) A 08/18/17 13:50 Urine Opiates Screen Positive (NEG=<300) A 08/17/17 20:56 Urine Methadone Screen Negative (NEG=<300) 08/17/17 20:56 Ur Barbiturates Screen Negative (NEG=<200) 08/17/17 20:56 Ur Phencyclidine Scrn Negative (NEG=<25) 08/17/17 20:56 Ur Amphetamines Screen Negative (NEG=<1000) 08/17/17 20:56 U Benzodiazepines Scrn Negative (NEG=<200) 08/17/17 20:56 Urine Cocaine Screen Negative (NEG=<300) 08/17/17 20:56 U Marijuana (THC) Screen Negative (NEG=<50) 08/17/17 20:56 Cryptosporid parvum Ag Negative (NEGATIVE) 08/18/17 13:50 Giardia lamblia Ag Negative (NEGATIVE) 08/18/17 13:50 - Plan (1) Sinus tachycardia Status: Acute Plan: IVF HYDRATION, METOPROLOL, TELEMETRY (2) Fever Status: Acute Qualifiers: Fever type: unspecified Qualified Code(s): R50.9 - Fever, unspecified Plan: TYLENOL, BLOOD CULTURES (3) UTI (urinary tract infection) Status: Acute Qualifiers: Urinary tract infection type: acute cystitis Plan: ROCEPHIN, CULTURE PENDING (4) Diarrhea Status: Acute Qualifiers: Diarrhea type: presumed infectious Qualified Code(s): R19.7 - Diarrhea, unspecified Plan: KEEP I&O (5) Acute alteration in mental status Status: Acute Plan: MONITOR NEURO CHECKS (6) Hypokalemia Status: Acute Plan: SUPPLEMENT INDICATED (7) Hypomagnesemia Status: Acute Plan: supplement as needed (8) Viral illness Status: Acute
[2017-08-19] MEDS ORDERED: ASPIRIN EC 81 MG PO STA (21:36)
[2017-08-20] MEDS: NS 1/2 1000 ML IV 1,000 ML with POTASSIUM CHLORIDE INJ 40 MEQ VIAL 40 MEQ IV SCH ×2 (02:45)
[2017-08-20] MEDS: TYLENOL #3 TAB (W/CODEINE) PO PRN (05:27)
[2017-08-20] MEDS: FLAGYL IV PREMIX 500 MG BAG 500 MG/100 ML BAG IV SCH (05:28)
[2017-08-20 06:15] LABS: BASOPHILS % (AUTO) 0.3 % (0.2-1.0); EOSINOPHILS # (AUTO) 0.1 x10^3/uL (0.0-0.2); EOSINOPHILS % (AUTO) 0.6 % (0.9-2.9); HEMATOCRIT 29.3 % (36.0-47.0); HEMOGLOBIN 9.8 g/dL (12.0-16.0); LYMPHOCYTES # (AUTO) 0.9 X10^3/uL (1.3-2.9); LYMPHOCYTES % (AUTO) 10.2 % (21.0-51.0); MEAN CORPUSCULAR HEMOGLOBIN 28.5 pg (27.0-34.0); MEAN CORPUSCULAR HGB CONC 33.4 g/dL (33.0-35.0); MEAN CORPUSCULAR VOLUME 85.2 fL (80.0-100.0); MEAN PLATELET VOLUME 7.9 fL (7.4-11.0); MONOCYTES # (AUTO) 0.6 x10^3/uL (0.3-0.8); MONOCYTES % (AUTO) 6.2 % (0.0-13.0); NEUTROPHILS # (AUTO) 7.4 x10^3/uL (2.2-4.8); NEUTROPHILS % (AUTO) 82.7 % (42.0-75.0); PLATELET COUNT 232 X10^3/uL (150.0-450.0); RED BLOOD COUNT 3.44 X10^6/uL (3.5-5.4); RED CELL DISTRIBUTION WIDTH 15.2 % (11.6-16.5); WHITE BLOOD COUNT 8.9 X10^3/uL (3.6-10.0)
[2017-08-20 06:45] LABS: ALANINE AMINOTRANSFERASE 14 Units/L (12-78); ALBUMIN 2.1 g/dL (3.4-5.0); ALKALINE PHOSPHATASE 83 Units/L (46-116); ASPARTATE AMINO TRANSFERASE 19 Units/L (15-37); BLOOD UREA NITROGEN 11 mg/dL (7-18); CALCIUM 7.9 mg/dL (8.5-10.1); CARBON DIOXIDE 22.7 mmol/L (21-32); CHLORIDE 105 mmol/L (98-107); COR CA(FOR HYPOALB) 9.4 mg/dL (8.5-10.1); CREATININE 0.41 mg/dL (0.55-1.02); MAGNESIUM 1.6 mg/dL (1.7-2.9); SODIUM 135 mmol/L (136-145); TOTAL PROTEIN 4.8 g/dL (6.4-8.2); eGFR NON BLACK RACES > 60 (>60)
[2017-08-20] MEDS ORDERED: NS 100 ML IV + SPIKE MINIBAG* 100 ML IV ONE (07:59)
[2017-08-20] MEDS ORDERED: ROCEPHIN VIAL 1 GRAM ONE (07:59)
[2017-08-20] MEDS: LOVENOX INJ 40 MG SYR SC SCH (08:24)
[2017-08-20] MEDS: MICRO K EXTEN CAP 10 MEQ PO SCH (08:25)
[2017-08-20] MEDS: LOPRESSOR TAB 25 MG PO SCH (08:25)
[2017-08-20] MEDS: PROTONIX INJ 40 MG VIAL IVP SCH (08:25)
[2017-08-20] MEDS: ROCEPHIN 1 GRAM IV PREMIX 1 G/50 ML IV.SOLN. IV SCH (08:26)
[2017-08-20] MEDS: XOPENEX 1.25 MG/3 ML NEBULE NEB PRN (08:32)
[2017-08-20] MEDS ORDERED: ROCEPHIN VIAL 1 GRAM 1 G in NS 100 ML IV + SPIKE MINIBAG* 100 ML IV SCH (09:00)
[2017-08-20] MEDS ORDERED: ROCEPHIN VIAL 1 GRAM IM SCH (09:00)
[2017-08-20 11:08] VITALS: BP 147/83
--- NOTE | 2017-08-31 22:31 | PCM.DCPLAN ---
Discharge Summary - Admission Date Date of Admission: 08/18/17 - Discharge Date Discharge Date: 08/20/17 - Admission Diagnoses (1) Sinus tachycardia Status: Acute (2) Fever Status: Acute (3) UTI (urinary tract infection) Status: Acute (4) Diarrhea Status: Acute (5) Acute alteration in mental status Status: Acute (6) Hypokalemia Status: Acute (7) Hypomagnesemia Status: Acute (8) Viral illness Status: Acute - Discharge Diagnoses Discharge Diagnosis: same as admission diagnosis and include Salmonella infection - Discharge Medications Discharge Medications: Home Medication List acetaminophen-codeine [Tylenol-Codeine #4] 1 tab PO Q6H PRN 08/18/17 [History] alprazolam 1 tab PO DAILY PRN 08/18/17 [History] amlodipine 5 mg PO HS 08/18/17 [History] baclofen 1 tab PO Q8H PRN 08/18/17 [History] furosemide 20 mg PO DAILY PRN 08/18/17 [History] gabapentin 600 mg PO Q8H PRN 08/18/17 [History] lisinopril-hydrochlorothiazide 1 tab PO DAILY 08/18/17 [History] meloxicam 1 tab PO DAILY PRN 08/18/17 [History] metoprolol tartrate 0.5 tab PO BID 08/18/17 [History] potassium chloride 1 cap PO DAILY 08/18/17 [History] ciprofloxacin HCl [Cipro] 500 mg PO BID #20 tab 08/20/17 [Rx] Prescriptions: ciprofloxacin HCl [Cipro] BRAD SWANSON - Hospital Course Vital Signs: Temperature 98.5 F Pulse Rate [Apical] 69 Pulse Rate [Left Brachial] 99 Pulse Rate 75 Respiratory Rate 20 Blood Pressure [Left Arm] 171/72 Blood Pressure [Right Arm] 147/83 Blood Pressure 154/72 O2 Sat by Pulse Oximetry 99 Latest Lab Results: Laboratory Last Values WBC 8.9 X10^3/uL (3.6-10.0) 08/20/17 05:07 RBC 3.44 X10^6/uL (3.5-5.4) L 08/20/17 05:07 Hgb 9.8 g/dL (12.0-16.0) L 08/20/17 05:07 Hct 29.3 % (36.0-47.0) L 08/20/17 05:07 MCV 85.2 fL (80.0-100.0) 08/20/17 05:07 MCH 28.5 pg (27.0-34.0) 08/20/17 05:07 MCHC 33.4 g/dL (33.0-35.0) 08/20/17 05:07 RDW 15.2 % (11.6-16.5) 08/20/17 05:07 Plt Count 232 X10^3/uL (150.0-450.0) 08/20/17 05:07 Plt Count Comment Adequate (ADEQUATE) 08/19/17 04:03 MPV 7.9 fL (7.4-11.0) 08/20/17 05:07 Neut % (Auto) 82.7 % (42.0-75.0) H 08/20/17 05:07 Lymph % (Auto) 10.2 % (21.0-51.0) L 08/20/17 05:07 [place] % (Auto) 6.2 % (0.0-13.0) 08/20/17 05:07 Eos % (Auto) 0.6 % (0.9-2.9) L 08/20/17 05:07 Baso % (Auto) 0.3 % (0.2-1.0) 08/20/17 05:07 Neut # (Auto) 7.4 x10^3/uL (2.2-4.8) H 08/20/17 05:07 Lymph # (Auto) 0.9 X10^3/uL (1.3-2.9) L 08/20/17 05:07 [place] # (Auto) 0.6 x10^3/uL (0.3-0.8) 08/20/17 05:07 Eos # (Auto) 0.1 x10^3/uL (0.0-0.2) 08/20/17 05:07 Baso # (Auto) 0.0 X10^3/uL (0.0-0.1) 08/20/17 05:07 Absolute Nucleated RBC 0.0 /100WBC 08/20/17 05:07 Total Counted 100 08/19/17 04:03 Neutrophils % (Manual) 82 % (39-76) H 08/19/17 04:03 Band Neutrophils % 8 % (0-10) 08/19/17 04:03 Lymphocytes % (Manual) 6 % (13-43) L 08/19/17 04:03 Monocytes % (Manual) 4 % (4-9) 08/19/17 04:03 Plt Morphology Comment Normal (NORMAL) 08/19/17 04:03 RBC Morphology Normal (NORMAL) 08/19/17 04:03 INR Target Range - 08/17/17 18:10 INR 1.01 (0.8-1.3) 08/17/17 18:10 APTT 27.7 SECONDS (22.9-36.5) 08/17/17 18:10 PTT Comment - 08/17/17 18:10 Sodium 135 mmol/L (136-145) L 08/20/17 05:07 Corrected Sodium TNP 08/20/17 05:07 Potassium 3.7 mmol/L (3.5-5.1) 08/20/17 05:07 Chloride 105 mmol/L (98-107) 08/20/17 05:07 Carbon Dioxide 22.7 mmol/L (21-32) 08/20/17 05:07 BUN 11 mg/dL (7-18) 08/20/17 05:07 Creatinine 0.41 mg/dL (0.55-1.02) L 08/20/17 05:07 Est GFR (MDRD) Af Amer > 60 (>60) 08/20/17 05:07 Est GFR (MDRD) Non-Af > 60 (>60) 08/20/17 05:07 Glucose 96 mg/dL (65-99) 08/20/17 05:07 Lactic Acid 0.6 mmol/L (0.4-2.0) 08/18/17 13:00 Calcium 7.9 mg/dL (8.5-10.1) L 08/20/17 05:07 Corrected Calcium 9.4 mg/dL (8.5-10.1) 08/20/17 05:07 Magnesium 1.6 mg/dL (1.7-2.9) L 08/20/17 05:07 Total Bilirubin 0.10 mg/dL (0.2-1.0) L 08/20/17 05:07 AST 19 Units/L (15-37) 08/20/17 05:07 ALT 14 Units/L (12-78) 08/20/17 05:07 Alkaline Phosphatase 83 Units/L (46-116) 08/20/17 05:07 Creatine Kinase 64 Units/L (26-192) 08/19/17 04:03 CK-MB (CK-2) 1.5 ng/mL (0-4.0) 08/19/17 04:03 CK/CKMB % Calc 2.3 % (<4) 08/19/17 04:03 Troponin I 0.09 ng/mL (0-1.5) 08/19/17 04:03 Total Protein 4.8 g/dL (6.4-8.2) L 08/20/17 05:07 Albumin 2.1 g/dL (3.4-5.0) L 08/20/17 05:07 Globulin 2.7 g/dL (2.5-4.5) 08/20/17 05:07 Albumin/Globulin Ratio 0.8 Ratio (1.1-2.1) L 08/20/17 05:07 Triglycerides 58 mg/dL (0-150) 08/18/17 07:11 Cholesterol 92 mg/dL (0-200) 08/18/17 07:11 LDL Cholesterol, Calc 47 mg/dL (0-100) 08/18/17 07:11 HDL Cholesterol 33 mg/dL (40-60) L 08/18/17 07:11 Cholesterol/HDL Ratio 2.8 (0.0-5.0) 08/18/17 07:11 Specimen Type Clean catch urine 08/17/17 20:56 Urine Color Yellow (YELLOW) 08/17/17 20:56 Urine Appearance Slightly hazy (CLEAR) 08/17/17 20:56 Urine pH 5.0 (5.0 - 8.0) 08/17/17 20:56 Ur Specific [place] 1.025 (1.000-1.030) 08/17/17 20:56 Urine Protein 3+ (NEGATIVE) 08/17/17 20:56 Urine Glucose (UA) Negative (NEGATIVE) 08/17/17 20:56 Urine Ketones 4+ (NEGATIVE) 08/17/17 20:56 Urine Occult Blood 2+ (NEGATIVE) 08/17/17 20:56 Urine Nitrite Negative (NEGATIVE) 08/17/17 20:56 Urine Bilirubin 1+ (NEGATIVE) 08/17/17 20:56 Urine Urobilinogen Normal (NORMAL) 08/17/17 20:56 Ur Leukocyte Esterase 1+ (NEGATIVE) 08/17/17 20:56 Urine RBC 3-5 /HPF (NONE SEEN) 08/17/17 20:56 Urine WBC 3-5 /HPF (NONE SEEN) 08/17/17 20:56 Ur Squamous Epith Cells Rare /HPF (NEGATIVE) 08/17/17 20:56 Amorphous Sediment 2+ /HPF (NEGATIVE) 08/17/17 20:56 Urine Bacteria Negative /HPF (NEGATIVE) 08/17/17 20:56 Hyaline Casts Numerous /LPF (NEGATIVE) 08/17/17 20:56 Granular Casts Moderate /LPF (NEGATIVE) 08/17/17 20:56 Fine Granular Casts Many /LPF (NEGATIVE) 08/17/17 20:56 Coarse Granular Casts Moderate /HPF (NEGATIVE) 08/17/17 20:56 Other Casts Few /LPF (NEGATIVE) 08/17/17 20:56 Urine Mucus Moderate /HPF (NEGATIVE) 08/17/17 20:56 Ur Culture Indicated? No/not indicated 08/17/17 20:56 Stool Description 5g,greenish/brown, 08/18/17 13:50 Stl Occult Blood (IFOB) Positive (NEGATIVE) A 08/18/17 13:50 Stool for White Cells Positive (NEGATIVE) A 08/18/17 13:50 Urine Opiates Screen Positive (NEG=<300) A 08/17/17 20:56 Urine Methadone Screen Negative (NEG=<300) 08/17/17 20:56 Ur Barbiturates Screen Negative (NEG=<200) 08/17/17 20:56 Ur Phencyclidine Scrn Negative (NEG=<25) 08/17/17 20:56 Ur Amphetamines Screen Negative (NEG=<1000) 08/17/17 20:56 U Benzodiazepines Scrn Negative (NEG=<200) 08/17/17 20:56 Urine Cocaine Screen Negative (NEG=<300) 08/17/17 20:56 U Marijuana (THC) Screen Negative (NEG=<50) 08/17/17 20:56 Cryptosporid parvum Ag Negative (NEGATIVE) 08/18/17 13:50 Giardia lamblia Ag Negative (NEGATIVE) 08/18/17 13:50 Hospital Course: IN ED PT'S FAMILY STATES PT HAD BEEN TALKING OUT OF HER HEAD AND HALLUCINATING. PT STATES SHE HAS BEEN INFECTED. PT CANNOT STATE WHAT KIND OF INFECTION SHE HAS BEEN INFECTED WITH BUT FAMILY STATES SHE HAS A HISTORY OF DRUG ABUSE AND SHE STATED TO EMS SHE TAKEN TYLENOL #4 UNK AMOUNT AND XANAX UNK AMOUNT. FAMILY STATES SHE STARTED ACTING THIS WAY LAST NIGHT. IN ICU SETTING PATIENT IS NONCOMMICATIVE BUT WILL FOLLOW COMMANDS. PATIENT WILL NOT ANSWER QUESTIONS WHEN ASKED. WILL DRINK FROM [facility]. HAS HAD 4 LOSE, FOUL, DARK BMS. IS IN SINUS TACH WITH RATES 140-150. DID RESPOND TO SALINE BOLUS. PATIENT WAS GIVEN IV ANTIBIOTICS. WITHIN 24 HOURS PATIENT ALERT, TALKING APPROPRIATELY. SYMPTOMS IMPROVED AND SHE WAS DISCHARGED HOME TO BE FOLLOWED ON OP BASIS. - Discharge Plan Disposition: 01 HOME, SELF-CARE Condition: Stable Prescriptions: ciprofloxacin HCl [Cipro] 500 mg PO BID #20 tab - Follow ups/Referrals Follow ups/Referrals: MERYL DESAI [Primary Care Provider] - 08/26/17 2:15 pm - Instructions Instructions: Steps to Quit Smoking, [id number], Confusion, Hypokalemia, Urinary Tract Infection, Adult, [id number], Hypertension, [id number], Salmonella Gastroenteritis, Adult Forms: Patient Portal
== END 2017-08-20 12:30 | disposition home or self-care (01) | DRG 309 ==
LOC: ER 16:35 → ICU 08-18 01:07
PROVIDERS: ADMIT Internal Medicine; ATTEND Internal Medicine
DX: B96.5 Pseudomonas (aeruginosa) (mallei) (pseudomallei) as the cause of diseases classified elsewhere; R44.2 Other hallucinations; B34.9 Viral infection, unspecified; B96.89 Other specified bacterial agents as the cause of diseases classified elsewhere; R51 Headache; R41.82 Altered mental status, unspecified; F11.90 Opioid use, unspecified, uncomplicated; N30.00 Acute cystitis without hematuria; E87.6 Hypokalemia; E83.42 Hypomagnesemia; R00.0 Tachycardia, unspecified; I10 Essential (primary) hypertension
CPT/HCPCS: 36415; 70450; 71010; 71045; 80053; 80061; 80307; 81001; 82270; 82550; 82553; 83605; 83630; 83735; 84132; 84484; 85025; 85610; 85730; 87040; 87045; 87070; 87077; 87086; 87088; 87186; 87205; 87328; 87329; 87427; 87449; 87899; 93005; 93010; 94640; 96365; 96367; 97161; 97165; 99284; 99285; A4216; A4222; C9113; J7030; S0030; G0434; J0131; J0696; J1650; J3475; J3480; J7050; J8499

== ENCOUNTER 2019-02-23 10:52 | Inpatient (IN) ==
[2019-02-23] MEDS ORDERED: PHENERGAN INJ 25 MG IM ONE ×2 (12:40→12:45)
[2019-02-23] MEDS ORDERED: NUBAIN INJ 10 IM ONE (12:40)
--- NOTE | 2019-02-23 12:41 | DR.NAUSEAF ---
HPI Time Seen Time Seen by Provider: 02/23/19 12:33 Primary Care Physician Primary Care Physician: ENRIQUE HPI Comment HPI Comment: PATIENT IS 68YR OLD FEMALE IN ER WITH LOWER BACK PAIN, NAUSEA, VOMITING AND LEFT HIP PAIN NOTED TODAY. PAIN IS ACHING SHARP 10/10 RADIATING TO LEFT HIP AND LEG. NO FEVER. PATIENT IS HAVING NAUSEA AND VOMITING. NO DYSURIA. ABDOMINALCRAMPING ALSO. PATIENT IS WEAK. Complaints Chief Complaint Doctors Comments: SEVERE BACK PAIN, NAUSEA AND VOMITING Chief Complaint:: PT STATES, "I AM HURTING LIKE CRAZY, VOMITING. CAN'T EAT OR DRINK." I HURT IN MY LEFT HIP, SPINE, AND LEGS Self Treatment fo Chief Complaint: TOOK MEDICATIONS THAT IS PRESCRIBED Reviewed Nurses Notes Reviewed: Yes Source History Provided: Patient Mode of Arrival Mode of Arrival: Ambulatory Timing Onset of Chief Complaint: 02/23/19 Context Onset: Spontaneous Recent: None History of: None Quality Quality: Food Particles Associated Signs and Symptoms Abdominal Pain Quality: Cramping Abdominal Pain Location: Diffuse Symptoms: Abdominal Pain PMH PMH Past Medical History: Yes Past Medical History: Arthritis and Hypertension Past Surgical History: Yes Surgical History: Appendectomy, Cholecystectomy, Hysterectomy, Mastectomy and Ortho Surgery Family History History of Family Medical Conditions: Yes Family Medical History: Cancer, [place], Coronary Artery Disease, Sudden Cardiac and Hypertension Social History Type of Tobacco Use: Cigarettes Does any household member use tobacco: No Do you use any recreational Drugs:: No Lives With: Family infectious screening In the last 2 months have you had wt loss of >10#?: NO Have you had fever, night sweats or hemotysis?: No Have you traveled outside the country in the last 6 months?: No Isolation: Standard ROS Review of Systems Constitutional: See HPI, Weakness, Fatigue and Loss of Appetite; negative Fever Eyes: No Symptoms Reported and See HPI ENTM: No Symptoms Reported and See HPI Respiratoy: See HPI, Non-Productive Cough, Short of Breath and Wheezing Cardiovascular: See HPI and Edema Gastrointestinal/Abdominal: See HPI Genitourinary: See HPI; negative Dysuria, Frequency and Hematuria Neurological: See HPI, Headache and Weakness; negative Dizziness Musculoskeletal: See HPI, Back Pain (LOWER BACK PAIN.) and Muscle Pain Integumentary: No Symptoms Reported and See HPI; negative Rash and Juandice Hematologic/Lymphatic: No Symptoms Reported and See HPI; negative Easy Bruising and Swollen Glands Endocrine: No Symptoms Reported and See HPI; negative Increased Thirst, Increased Urine and Unexplained Weight Loss Psychiatric: No Symptoms Reported; negative See HPI All Other Systems: Reviewed and Negative PE Vital Signs Vitals: Temperature 97.6 F Pulse Rate 69 Respiratory Rate 16 Blood Pressure [Left Arm] 196/91 Blood Pressure [Right Arm] 190/89 Blood Pressure 155/88 O2 Sat by Pulse Oximetry 95 General Limitations: No Limitations General Appearance: Alert Head Head Exam: Normal Inspection and Atraumatic Eyes Eye exam: Normal Appearance and PERRL; negative Scleral Icterus and Conjunctival Injection ENT ENT Exam: Normal Exam, Normal Oropharynx, Normal External Ear Exam and TM's Normal Bilaterally Neck Neck Exam: Normal Inspection and Trachea Midline; negative Tenderness and Lymphadenopathy Chest Chest Inspection: Normal Inspection and Symmetric Chest Wall Rise; negative Tenderness Respiratory Respiratory Exam: Accessory Muscle Use, Prolonged Expiratory Phase and Respiratory Distress; negative Chest Wall Tenderness Respiratory Exam: Bilateral: Wheezing and Bilateral: Rhonchi and Lower: Wheezing and Lower: Rhonchi Cardiovascular Cardiovascular Exam: Regular Rate, Normal Rhythm and Normal Heart Sounds; negative Systolic Murmur and Diastolic Murmur Abdominal Exam Abdominal Exam: Normal Inspection, Normal Bowel Sounds and Soft; negative Tenderness Rectal Rectal Exam: Deferred External Exam: Female: Deferred : Speculum Exam (Female): Deferred : Bimanual Exam (female): Deferred Extremities Extremities Exam: Normal Capillary Refill and Edema; negative Tenderness and Calf Tenderness Back Back Exam: Tenderness, Paraspinal Tenderness and Vertebral Tenderness Neurologic Neurological Exam: Alert, Oriented X3 and CN II-XII Intact; negative Motor Sensory Deficit Psychiatric Psychiatric Exam: Normal Affect and Normal Mood Skin Skin Exam: Warm, Dry, Normal Color and Other MDM Differential Diagnosis Differential Diagnosis: Considerations may Include:: Bowel Obstruction, Gastroenteritis, Inflammatory BD, Pancreatitis, PUD, Urinary Tract Infection, Urolithiasis and Other (VT, CHF, COPDD, PNEUMONIA) COURSE Treatment Treatment: SEE ORDERS. Consultation Consultation Comments: DISCUSSED PATIENT WITH DR. SWANSON. HE WILL ADMIT PATIENT. Education/Counseling Education/Counseling: Family ROR Labs Reviewed Laboratory Results Reviewed?: Yes Result Diagrams: 02/26/19 06:05 02/26/19 06:05 Laboratory: 02/23/19 17:33 Urine,Catheterized Urine Culture - Final Escherichia Coli WBC 5.1 X10^3/uL (3.6-10.0) 02/23/19 16:09 RBC 4.72 X10^6/uL (3.5-5.4) 02/23/19 16:09 Hgb 14.6 g/dL (12.0-16.0) 02/23/19 16:09 Hct 42.1 % (36.0-47.0) 02/23/19 16:09 MCV 89.2 fL (80.0-100.0) 02/23/19 16:09 MCH 31.0 pg (27.0-34.0) 02/23/19 16:09 MCHC 34.7 g/dL (33.0-35.0) 02/23/19 16:09 RDW 12.6 % (11.6-16.5) 02/23/19 16:09 Plt Count 221 X10^3/uL (150.0-450.0) 02/23/19 16:09 MPV 6.6 fL (7.4-11.0) L 02/23/19 16:09 Neut % (Auto) 82.9 % (42.0-75.0) H 02/23/19 16:09 Lymph % (Auto) 9.1 % (21.0-51.0) L 02/23/19 16:09 [place]elope % (Auto) 7.2 % (0.0-13.0) 02/23/19 16:09 Eos % (Auto) 0.1 % (0.9-2.9) L 02/23/19 16:09 Baso % (Auto) 0.7 % (0.2-1.0) 02/23/19 16:09 Neut # (Auto) 4.2 x10^3/uL (2.2-4.8) 02/23/19 16:09 Lymph # (Auto) 0.5 X10^3/uL (1.3-2.9) L 02/23/19 16:09 [place]elope # (Auto) 0.4 x10^3/uL (0.3-0.8) 02/23/19 16:09 Eos # (Auto) 0.0 x10^3/uL (0.0-0.2) 02/23/19 16:09 Baso # (Auto) 0.0 X10^3/uL (0.0-0.1) 02/23/19 16:09 Absolute Nucleated RBC 0.0 /100WBC 02/23/19 16:09 Sodium 123 mmol/L (136-145) L* 02/23/19 16:09 Corrected Sodium TNP 02/23/19 16:09 Potassium 3.7 mmol/L (3.5-5.1) 02/23/19 16:09 Chloride 88 mmol/L (98-107) L 02/23/19 16:09 Carbon Dioxide 31.1 mmol/L (21-32) 02/23/19 16:09 BUN 6 mg/dL (7-18) L 02/23/19 16:09 Creatinine 0.56 mg/dL (0.55-1.02) 02/23/19 16:09 Est GFR (MDRD) Af Amer > 60 (>60) 02/23/19 16:09 Est GFR (MDRD) Non-Af > 60 (>60) 02/23/19 16:09 Glucose 97 mg/dL (65-99) 02/23/19 16:09 Calcium 9.0 mg/dL (8.5-10.1) 02/23/19 16:09 Corrected Calcium TNP 02/23/19 16:09 Total Bilirubin 0.20 mg/dL (0.2-1.0) 02/23/19 16:09 AST 48 Units/L (15-37) H 02/23/19 16:09 ALT 27 Units/L (12-78) 02/23/19 16:09 Alkaline Phosphatase 109 Units/L (46-116) 02/23/19 16:09 Total Protein 7.2 g/dL (6.4-8.2) 02/23/19 16:09 Albumin 3.9 g/dL (3.4-5.0) 02/23/19 16:09 Globulin 3.3 g/dL (2.5-4.5) 02/23/19 16:09 Albumin/Globulin Ratio 1.2 Ratio (1.1-2.1) 02/23/19 16:09 Specimen Type Catherized urine 02/23/19 17:33 Urine Color Straw (YELLOW) 02/23/19 17:33 Urine Appearance Cloudy (CLEAR) 02/23/19 17:33 Urine pH 7.0 (5.0 - 8.0) 02/23/19 17:33 Ur Specific [place] 1.010 (1.000-1.030) 02/23/19 17: Urine Protein Negative (NEGATIVE) 02/23/19 17: Urine Glucose (UA) Negative (NEGATIVE) 02/23/19 17: Urine Ketones Negative (NEGATIVE) 02/23/19 17: Urine Occult Blood 3+ (NEGATIVE) 02/23/19 17: Urine Nitrite Positive (NEGATIVE) 02/23/19 17: Urine Bilirubin Negative (NEGATIVE) 02/23/19 17: Urine Urobilinogen Normal (NORMAL) 02/23/19: Ur Leukocyte Esterase 2+ (NEGATIVE) 02/23/19: Urine RBC 3-5 /HPF (0-3) A 02/23/19 17: Urine WBC 5-10 /HPF (0-5) A 02/23/19: Ur Squamous Epith Cells Rare /HPF (NEGATIVE) 02/23/19 17: Urine Bacteria 3+ /HPF (NEGATIVE) 02/23/19 17:33 Ur Culture Indicated? Yes/culture set up 02/23/19:33 XRAY XRAY Interpreted by: Radiologist XRAY Findings: REPORT NOTAND DISCUSSED WITH PATIENT Opioid Opioid Risk Tool Age (Filipe box if 16-45): No Total: 0 Total Score Risk Category: Low Risk Copyright: Murry predicting aberrant behaviors Diagnosis Discharge Problem: Acute hyponatremia, Acute dehydration, Gastroenteritis, Severe low back pain Instructions Instructions: Hypomagnesemia Hypokalemia What You Need to Know About Chronic Back Pain Steps to Quit Smoking, [id number] Chronic Obstructive Pulmonary Disease, Egpd-bq-Rehi Urinary Tract Infection, Adult, Gvys-eo-Avvv Back Exercises, Dgzn-jl-Zdps Hypertension, Bdcj-he-Nbhn Chronic Back Pain, Iczz-fn-Guhi Heart Failure, Umbp-vp-Fwyv Forms: Patient Portal
[2019-02-23] MEDS ORDERED: NUBAIN INJ 10 ONE (12:45)
[2019-02-23] MEDS ORDERED: NARCAN INJ IM ONE (13:58)
[2019-02-23] MEDS ORDERED: NARCAN INJ ONE (13:59)
[2019-02-23 16:20] LABS: BASOPHILS % (AUTO) 0.7 % (0.2-1.0); EOSINOPHILS % (AUTO) 0.1 % (0.9-2.9); HEMATOCRIT 42.1 % (36.0-47.0); HEMOGLOBIN 14.6 g/dL (12.0-16.0); LYMPHOCYTES # (AUTO) 0.5 X10^3/uL (1.3-2.9); LYMPHOCYTES % (AUTO) 9.1 % (21.0-51.0); MEAN CORPUSCULAR HGB CONC 34.7 g/dL (33.0-35.0); MEAN CORPUSCULAR VOLUME 89.2 fL (80.0-100.0); MEAN PLATELET VOLUME 6.6 fL (7.4-11.0); MONOCYTES # (AUTO) 0.4 x10^3/uL (0.3-0.8); MONOCYTES % (AUTO) 7.2 % (0.0-13.0); NEUTROPHILS # (AUTO) 4.2 x10^3/uL (2.2-4.8); NEUTROPHILS % (AUTO) 82.9 % (42.0-75.0); PLATELET COUNT 221 X10^3/uL (150.0-450.0); RED BLOOD COUNT 4.72 X10^6/uL (3.5-5.4); RED CELL DISTRIBUTION WIDTH 12.6 % (11.6-16.5); WHITE BLOOD COUNT 5.1 X10^3/uL (3.6-10.0)
[2019-02-23 16:24] LABS: BLOOD UREA NITROGEN 6 mg/dL (7-18); CARBON DIOXIDE 31.1 mmol/L (21-32); CHLORIDE 88 mmol/L (98-107); CREATININE 0.56 mg/dL (0.55-1.02); eGFR NON BLACK RACES > 60 (>60)
[2019-02-23 16:29] LABS: ALANINE AMINOTRANSFERASE 27 Units/L (12-78); ALBUMIN 3.9 g/dL (3.4-5.0); ALKALINE PHOSPHATASE 109 Units/L (46-116); ASPARTATE AMINO TRANSFERASE 48 Units/L (15-37); TOTAL PROTEIN 7.2 g/dL (6.4-8.2)
[2019-02-23 16:32] LABS: SODIUM 123 mmol/L (136-145)
--- NOTE | 2019-02-23 16:50 | CT ---
HISTORYAMS VOMITING PAIN IN BACKSTUDYHEAD (TRAUMA)COMPARISONNoneTECHNIQUESerial axial images were obtained from the skull base to the vertex without infusion of IV contrast. Coronal and sagittal images were also submitted. Dose reduction techniques including Automated Exposure Control (AEC) and adjustment of mA and kV were utilized.FINDINGSNo definite evidence of acute intracranial hemorrhage or mass is identified. The ventricles, sulci, and cisterns are grossly unremarkable in appearance. No evidence of significant midline shift is identified. No definite abnormal extra axial fluid collections are appreciated. The visualized paranasal sinuses are grossly unremarkable. If symptoms or clinical concerns persist recommend continued follow up for further evaluation.IMPRESSIONNo CT evidence of acute intracranial abnormality is appreciated.Electronically signed by: KASIA WELSH (Feb 23, 2019 16:48:14)
--- NOTE | 2019-02-23 17:11 | CT ---
HISTORYVOMITING AMS PAIN IN BACKSTUDYTHORACIC SPINE W/O CONCOMPARISONNoneTECHNIQUEMultiple axial images of the thoracic spine were obtained from the thoracic inlet to the thoracolumbar junction. Sagittal and coronal reconstructions were performed and reviewed. Dose reduction techniques including Automated Exposure Control (AEC) and adjustment of mA and kV were utilized.FINDINGSMultilevel endplate degenerative changes are noted. Otherwise the thoracic vertebral body heights are relatively maintained. No definite evidence for acute cortical disruption or significant subluxation identified. Mild degenerative facet changes are seen throughout the thoracic spine. Mild multilevel osteophytosis is also noted. If symptoms or clinical concern persist correlation with MRI may be helpful.IMPRESSIONDegenerative changes as noted above.Electronically signed by: KASIA WELSH (Feb 23, 2019 17:10:44)
--- NOTE | 2019-02-23 17:11 | CT ---
HISTORYVOMITING AMS PAIN IN BACKSTUDYLUMBAR SPINE W/O CONCOMPARISONNoneTECHNIQUEMultiple axial images of the lumbar spine were obtained from the thoracolumbar junction to the sacrum without the administration of IV contrast. Sagittal and coronal reformats were performed and reviewed. Dose reduction techniques including Automated Exposure Control (AEC) and adjustment of mA and kV were utilized.FINDINGSImages demonstrate multilevel endplate degenerative changes. Otherwise the lumbar vertebral body heights are relatively maintained. Dextrocurvature of the lumbar spine is also noted. Degenerative facet changes are seen throughout the lumbar spine. Multilevel intervertebral disc space narrowing, vacuum disc phenomenon, and osteophytosis are also noted. If symptoms or clinical concern persist correlation with MRI may be helpful LS contraindicated.IMPRESSIONMultilevel degenerative changes as noted above.Electronically signed by: KASIA WELSH (Feb 23, 2019 17:10:20)
[2019-02-23 17:41] LABS: BILIRUBIN,URINE NEGATIVE (NEGATIVE); BLOOD/HEMOGLOBIN,URINE 3+ (NEGATIVE); GLUCOSE, URINE NEGATIVE (NEGATIVE); KETONES,URINE NEGATIVE (NEGATIVE); LEUKOCYTE ESTERASE ,URINE 2+ (NEGATIVE); NITRITES,URINE POSITIVE (NEGATIVE); PROTEIN,URINE NEGATIVE (NEGATIVE); UROBILINOGEN,URINE NORMAL (NORMAL)
[2019-02-23 17:44] LABS: APPEARANCE,URINE CLOUDY (CLEAR); COLOR,URINE STRAW (YELLOW)
[2019-02-23] MEDS ORDERED: NS 1000 ML 1,000 ML ONE (17:44)
[2019-02-23] MEDS: NS 1000 ML 1,000 ML IV SCH (17:46)
[2019-02-23 17:49] LABS: BACTERIA,URINE 3+ /HPF (NEGATIVE); SQUAMOUS EPITHELIAL CELL,UR RARE /HPF (NEGATIVE)
[2019-02-23] MEDS ORDERED: LASIX PO PRN (19:49)
[2019-02-23] MEDS ORDERED: ZESTRIL TAB 5 MG PO SCH (19:49)
[2019-02-23] MEDS ORDERED: TYLENOL 325 MG TAB PO ONE (20:06)
[2019-02-23] MEDS ORDERED: TYLENOL 325 MG TAB PO PRN (20:10)
[2019-02-23] MEDS: ROCEPHIN VIAL 1 GRAM 1 G in NS 100 ML IV + SPIKE MINIBAG* 100 ML IV SCH (20:12)
[2019-02-23] MEDS: LOPRESSOR TAB 25 MG PO SCH (20:15)
[2019-02-23 20:58] LABS: CKMB % 1.4 % (<4); TROPONIN I 0.02 ng/mL (0-1.5)
[2019-02-23 20:59] LABS: CREATINE KINASE MB 8.9 ng/mL (0-4.0)
[2019-02-23] MEDS ORDERED: KLOR-CON PO PRN (22:42)
[2019-02-23] MEDS ORDERED: K-RIDER 10 MEQ/NS 100 ML 10 MEQ/100 ML BAG IV PRN (22:42)
[2019-02-23] MEDS ORDERED: K-DUR TAB 20 MEQ PO PRN (22:42)
[2019-02-23] MEDS ORDERED: POTASSIUM CHL 60 MEQ/NS 0.45% 500 ML IV PRN (22:42)
[2019-02-23] MEDS ORDERED: POTASSIUM CHL 40 MEQ/NS 0.45% 500 ML IV PRN (22:42)
[2019-02-23] MEDS ORDERED: POTASSIUM CHLORIDE LIQ 20 MEQ UDC PO PRN (22:42)
[2019-02-23] MEDS ORDERED: MICRO K EXTEN CAP 10 MEQ PO PRN (22:42)
[2019-02-23] MEDS ORDERED: MICRO K EXTEN CAP 10 MEQ PO ONE (22:47)
[2019-02-23] MEDS ORDERED: MAGNESIUM SULFATE 1 GRAM/100 mL PREMIX 4 G/400 ML BAG IV ONE (22:47)
[2019-02-23] MEDS: MAGNESIUM SULFATE 1 GRAM/100 mL PREMIX 1 GM/100 ML BAG IV PRN (22:58)
[2019-02-24] MEDS: MAGNESIUM SULFATE 1 GRAM/100 mL PREMIX 1 GM/100 ML BAG IV PRN ×3 (01:00→05:28)
[2019-02-24 01:45] VITALS: BMI 19.1
[2019-02-24] MEDS: NS 1000 ML 1,000 ML IV SCH ×3 (01:51→19:50)
[2019-02-24 06:12] LABS: BASOPHILS % (AUTO) 0.2 % (0.2-1.0); HEMATOCRIT 40.2 % (36.0-47.0); HEMOGLOBIN 13.7 g/dL (12.0-16.0); LYMPHOCYTES # (AUTO) 0.6 X10^3/uL (1.3-2.9); MEAN CORPUSCULAR HEMOGLOBIN 30.7 pg (27.0-34.0); MEAN CORPUSCULAR HGB CONC 34.2 g/dL (33.0-35.0); MEAN CORPUSCULAR VOLUME 89.5 fL (80.0-100.0); MEAN PLATELET VOLUME 7.2 fL (7.4-11.0); MONOCYTES # (AUTO) 0.4 x10^3/uL (0.3-0.8); MONOCYTES % (AUTO) 6.5 % (0.0-13.0); NEUTROPHILS # (AUTO) 4.8 x10^3/uL (2.2-4.8); NEUTROPHILS % (AUTO) 82.3 % (42.0-75.0); PLATELET COUNT 208 X10^3/uL (150.0-450.0); RED BLOOD COUNT 4.48 X10^6/uL (3.5-5.4); WHITE BLOOD COUNT 5.9 X10^3/uL (3.6-10.0)
[2019-02-24 06:47] LABS: ALANINE AMINOTRANSFERASE 24 Units/L (12-78); ALBUMIN 3.2 g/dL (3.4-5.0); ALKALINE PHOSPHATASE 88 Units/L (46-116); ASPARTATE AMINO TRANSFERASE 39 Units/L (15-37); BLOOD UREA NITROGEN 5 mg/dL (7-18); CALCIUM 7.7 mg/dL (8.5-10.1); CARBON DIOXIDE 25.5 mmol/L (21-32); CHLORIDE 93 mmol/L (98-107); CKMB % 0.9 % (<4); COR CA(FOR HYPOALB) 8.3 mg/dL (8.5-10.1); CREATINE KINASE 442 Units/L (26-192); CREATINE KINASE MB 3.8 ng/mL (0-4.0); CREATININE 0.46 mg/dL (0.55-1.02); MAGNESIUM 2.7 mg/dL (1.7-2.9); SODIUM 127 mmol/L (136-145); TOTAL PROTEIN 6.3 g/dL (6.4-8.2); TROPONIN I < 0.02 ng/mL (0-1.5); eGFR NON BLACK RACES > 60 (>60)
[2019-02-24] MEDS: LIORESAL PO PRN (07:59)
[2019-02-24] MEDS: LOPRESSOR TAB 25 MG PO SCH ×2 (07:59→20:00)
[2019-02-24] MEDS: MICRO K EXTEN CAP 10 MEQ PO SCH (08:00)
[2019-02-24] MEDS: ROCEPHIN VIAL 1 GRAM 1 G in NS 100 ML IV + SPIKE MINIBAG* 100 ML IV SCH (08:00)
[2019-02-24] MEDS: ZESTRIL TAB 5 MG PO SCH (08:01)
[2019-02-24] MEDS ORDERED: ZOFRAN INJ 4 MG VIAL IVP PRN (08:19)
[2019-02-24] MEDS ORDERED: PERCOCET TAB 5/325 MG PO PRN (08:19)
--- NOTE | 2019-02-24 10:29 | RAD ---
HISTORYCOPD and history of breast CASTUDYPortable upright AP chestCOMPARISONJuly 2017 reportFINDINGSThe lungs are hyperinflated and clear. The heart and mediastinum are unremarkable. There are surgical clips in the left axilla. There is no edema or effusion.IMPRESSIONFindings suggest COPD, but no evidence for acute or metastatic cardiopulmonary diseaseElectronically signed by: DAVID ZAPIEN (Feb 24, 2019 10:27:54)
[2019-02-24] MEDS: PROTONIX INJ 40 MG VIAL IVP SCH (11:31)
[2019-02-24] MEDS: DEMEROL INJ IVP PRN ×2 (11:31→21:41)
--- NOTE | 2019-02-24 13:45 | DR.H&P ---
H&P - History & Physical for Day of: H&P Date: 02/23/19 - Chief Complaint Chief Complaint: SEVERE BACK PAIN N/V, WEAKNESS - History of Present Illness History of Present Illness: PT IS 68 WF ER ADMISSION WITH CO SEVERE BACK PAIN, N/V AND DEHYDRATION PT WAS NOTED TO HAVE HYPONATREMIA ON ADMISSION AND UTI. PT HAD CHRONIC L SPINE DDD, ON CORRECTION PAIN CONTROL, PT ALSO HAS COPD, CHF, CAD, OA, HX BREAST CA AND HX LYMPHOMA. PT ADMITTED FOR TREATMENT OF DEHYDRATION WITH HYPONATREMIA AND UTI. - Past Medical History Past Medical History: Hypertension, Arthritis - Past Surgical History Surgical History: Appendectomy, Cholecystectomy, Hysterectomy, Mastectomy, Ortho Surgery - Family History Family Medical History: Cancer, [place], Coronary Artery Disease, Sudden Cardiac , Hypertension - Social History Does patient currently use any type of tobacco product: Yes Type of Tobacco Use: Cigarettes Does any household member use tobacco: No Alcohol Use: None Drug Use: None - Medications Home Medications: morphine Allergy (Verified 12/05/17 22:02) GOLD Allergy (Uncoded 09/10/18 12:35) SHEEP SKIN Allergy (Uncoded 09/10/18 12:35) - Review of Systems Constitutional: Fever, Chills, Weakness, Malaise Eyes: No Symptoms Reported ENT: No Symptoms Reported Respiratory: Shortness of Breath, SOB with Excertion, Wheezing Cardiovascular: No Symptoms Reported, Edema Gastrointestinal: Nausea, Vomiting, Abdominal Pain Genitourinary: No Symptoms Reported Musculoskeletal: Back Pain Skin: No Symptoms Reported Neurological: Weakness - Physical Exam Vital Signs: Temperature 98.4 F Pulse Rate [Left Brachial] 95 Pulse Rate 56 Respiratory Rate 18 Blood Pressure [Left Arm] 186/86 Blood Pressure [Right Arm] 190/89 Blood Pressure 124/59 O2 Sat by Pulse Oximetry 100 Oriented: Normal Eyes: Normal Ear: Normal Nose: Normal Throat: Normal Respiratory: Wheezes Throughout, RLL Diminished, LLL Diminished Cardiovascular: Normal, Edema : Normal Palpation: Normal Tenderness: Suprapubic, Mild Skin: Decreased Turgur Musculoskeletal: Back:Thoracic, Back:Lumbar Psychiatric: Anxiety Affect: Anxious Speech Pattern: Clear, Appropriate - Assessment/Plan (1) Dehydration with hyponatremia Status: Acute Plan: ADMIT, CARIDAC MONITORING. ELECTROLYTE REPLACEMENT, IV ABTX, CULTURES OBTAINED ON ADMISSION. GENTLE IV HYDRATION PAIN CONTROL. XRAYS ON ADMISSION, CT HEAD IN ER. VERIFY HOME MEDICATION, AM LABS AND CXR. STRICT I &OS (2) UTI (urinary tract infection) Qualifiers: Urinary tract infection type: acute cystitis Status: Acute (3) COPD (chronic obstructive pulmonary disease) Status: Acute (4) CHF (congestive heart failure) Status: Acute (5) Hypomagnesemia Status: Acute (6) Degenerative joint disease (DJD) of lumbar spine Qualifiers: Spinal osteoarthritis complication: with radiculopathy Qualified Code(s): M47.26 - Other spondylosis with radiculopathy, lumbar region Status: Chronic (7) Hypertension Qualifiers: Hypertension type: essential hypertension Qualified Code(s): I10 - Essential (primary) hypertension Status: Chronic - Allergies Allergies/Adverse Reactions: Allergies Allergy/AdvReac Type Severity Reaction Status Date / Time morphine Allergy Verified 12/05/17 22:02 GOLD Allergy Uncoded 09/10/18 12:35 SHEEP SKIN Allergy Uncoded 09/10/18 12:35
[2019-02-24] MEDS: SOLU-Medrol 125 MG VIAL IVP SCH ×2 (16:20→21:28)
[2019-02-24] MEDS: NORCO 10/325 TAB PO PRN ×2 (16:21→23:15)
[2019-02-24] MEDS: COLACE CAP 100 MG PO SCH (21:28)
[2019-02-25] MEDS: NS 1000 ML 1,000 ML IV SCH ×4 (02:53→18:34)
[2019-02-25] MEDS: DEMEROL INJ IVP PRN ×2 (04:40→10:39)
[2019-02-25] MEDS: SOLU-Medrol 125 MG VIAL IVP SCH (06:07)
[2019-02-25 06:08] LABS: BASOPHILS % (AUTO) 0.1 % (0.2-1.0); HEMATOCRIT 37.6 % (36.0-47.0); LYMPHOCYTES # (AUTO) 0.3 X10^3/uL (1.3-2.9); LYMPHOCYTES % (AUTO) 4.5 % (21.0-51.0); MEAN CORPUSCULAR HEMOGLOBIN 30.9 pg (27.0-34.0); MEAN CORPUSCULAR HGB CONC 34.5 g/dL (33.0-35.0); MEAN CORPUSCULAR VOLUME 89.6 fL (80.0-100.0); MEAN PLATELET VOLUME 7.4 fL (7.4-11.0); MONOCYTES # (AUTO) 0 x10^3/uL (0.3-0.8); MONOCYTES % (AUTO) 0.9 % (0.0-13.0); NEUTROPHILS # (AUTO) 5.4 x10^3/uL (2.2-4.8); NEUTROPHILS % (AUTO) 94.5 % (42.0-75.0); PLATELET COUNT 185 X10^3/uL (150.0-450.0); RED BLOOD COUNT 4.19 X10^6/uL (3.5-5.4); RED CELL DISTRIBUTION WIDTH 12.7 % (11.6-16.5); WHITE BLOOD COUNT 5.7 X10^3/uL (3.6-10.0)
[2019-02-25 06:24] LABS: ALANINE AMINOTRANSFERASE 21 Units/L (12-78); ALBUMIN 2.9 g/dL (3.4-5.0); ALKALINE PHOSPHATASE 79 Units/L (46-116); ASPARTATE AMINO TRANSFERASE 34 Units/L (15-37); BLOOD UREA NITROGEN 4 mg/dL (7-18); CALCIUM 7.6 mg/dL (8.5-10.1); CARBON DIOXIDE 22.9 mmol/L (21-32); CHLORIDE 98 mmol/L (98-107); COR CA(FOR HYPOALB) 8.5 mg/dL (8.5-10.1); COR NA(FOR HYPERGLY) 132 mmol/L (136-145); CREATININE 0.36 mg/dL (0.55-1.02); SODIUM 131 mmol/L (136-145); eGFR NON BLACK RACES > 60 (>60)
[2019-02-25 07:10] LABS: BAND NEUTROPHILS % 1 % (0-10); PLATELET MORPHOLOGY COMMENT NORMAL (NORMAL)
[2019-02-25] MEDS: NORCO 10/325 TAB PO PRN ×3 (07:31→20:28)
[2019-02-25] MEDS: MAGNESIUM SULFATE 1 GRAM/100 mL PREMIX 1 GM/100 ML BAG IV PRN ×3 (07:32→10:38)
--- NOTE | 2019-02-25 07:50 | CT ---
HISTORYShortness of breath, history COPDSTUDYCHEST WITH CONTechnique: Axial post-contrast images with coronal and sagittal reformats. Dose reduction procedures were used with mA/kv adjusted for body size.[id number]/16/2018FINDINGSExamination of the mediastinum demonstrated no evidence for mediasti nal masses, enlarged mediastinal or enlarged hilar adenopathy, significant aortic abnormality or pleu ral effusion. No chest wall or axillary abnormality is identified. Those portions of the upper abdomi nal organs visualized were within normal limits. Examination of the lung tadeo demonstrated hyperinf lation to be present. No definite nodules, masses, alveolar infiltrates, areas of consolidation, pauly bronchial thickening, or bronchiectasis is identified. There is some mild peribronchial thickening pa rticularly in the left lower lobe suggestive of bronchitis which may be chronic as it is unchanged fr om the prior CT examination. Subtle peribronchial infiltrates are identified which may represent chong y bronchopneumonia.IMPRESSIONHyperinflation consistent with COPD in the appropriate clinical settingP eribronchial thickening in the left lower lobe suggestive of bronchitis which appears chronic and unc hanged from the prior examinationSubtle peribronchial infiltrates in the left lower lobe which may re present early developing bronchopneumoniaElectronically signed by: LAUREN FUENTES (Feb 25, 2019 07:48: 24)
[2019-02-25] MEDS: PROTONIX INJ 40 MG VIAL IVP SCH (08:48)
[2019-02-25] MEDS: LOPRESSOR TAB 25 MG PO SCH ×2 (08:48→20:27)
[2019-02-25] MEDS: ROCEPHIN VIAL 1 GRAM 1 G in NS 100 ML IV + SPIKE MINIBAG* 100 ML IV SCH (08:50)
[2019-02-25] MEDS: MICRO K EXTEN CAP 10 MEQ PO SCH (08:50)
[2019-02-25] MEDS: ZESTRIL TAB 5 MG PO SCH (08:50)
[2019-02-25] MEDS: NEURONTIN TAB 600 MG PO PRN ×2 (09:17→20:28)
[2019-02-25] MEDS: LIORESAL PO PRN ×2 (11:17→19:11)
[2019-02-25] MEDS ORDERED: LASIX IVP SCH (16:00)
[2019-02-25] MEDS: K-DUR TAB 20 MEQ PO SCH (16:42)
[2019-02-25] MEDS: XANAX PO PRN (17:40)
[2019-02-25] MEDS: COLACE CAP 100 MG PO SCH (20:27)
[2019-02-26] MEDS: NS 1000 ML 1,000 ML IV SCH ×2 (03:25→12:31)
[2019-02-26] MEDS: NORCO 10/325 TAB PO PRN ×2 (03:30→10:03)
[2019-02-26] MEDS: NEURONTIN TAB 600 MG PO PRN (04:53)
[2019-02-26] MEDS: LIORESAL PO PRN (04:54)
[2019-02-26 06:36] LABS: BASOPHILS % (AUTO) 0.1 % (0.2-1.0); HEMATOCRIT 38.5 % (36.0-47.0); HEMOGLOBIN 13.2 g/dL (12.0-16.0); LYMPHOCYTES # (AUTO) 0.6 X10^3/uL (1.3-2.9); LYMPHOCYTES % (AUTO) 7.4 % (21.0-51.0); MEAN CORPUSCULAR HEMOGLOBIN 30.8 pg (27.0-34.0); MEAN CORPUSCULAR HGB CONC 34.2 g/dL (33.0-35.0); MEAN CORPUSCULAR VOLUME 89.8 fL (80.0-100.0); MEAN PLATELET VOLUME 7.2 fL (7.4-11.0); MONOCYTES # (AUTO) 0.4 x10^3/uL (0.3-0.8); MONOCYTES % (AUTO) 5.2 % (0.0-13.0); NEUTROPHILS # (AUTO) 7.2 x10^3/uL (2.2-4.8); NEUTROPHILS % (AUTO) 87.3 % (42.0-75.0); PLATELET COUNT 192 X10^3/uL (150.0-450.0); RED BLOOD COUNT 4.28 X10^6/uL (3.5-5.4); RED CELL DISTRIBUTION WIDTH 13.1 % (11.6-16.5); WHITE BLOOD COUNT 8.2 X10^3/uL (3.6-10.0)
[2019-02-26 06:47] LABS: ALANINE AMINOTRANSFERASE 32 Units/L (12-78); ALBUMIN 3.2 g/dL (3.4-5.0); ALKALINE PHOSPHATASE 87 Units/L (46-116); ASPARTATE AMINO TRANSFERASE 43 Units/L (15-37); BLOOD UREA NITROGEN 4 mg/dL (7-18); CARBON DIOXIDE 27.4 mmol/L (21-32); CHLORIDE 101 mmol/L (98-107); COR CA(FOR HYPOALB) 8.6 mg/dL (8.5-10.1); CREATININE 0.43 mg/dL (0.55-1.02); SODIUM 135 mmol/L (136-145); TOTAL PROTEIN 6.6 g/dL (6.4-8.2); eGFR NON BLACK RACES > 60 (>60)
[2019-02-26] MEDS: DEMEROL INJ IVP PRN (07:15)
[2019-02-26] MEDS: K-DUR TAB 20 MEQ PO SCH (08:21)
[2019-02-26] MEDS: LOPRESSOR TAB 25 MG PO SCH (08:21)
[2019-02-26] MEDS: ZESTRIL TAB 5 MG PO SCH (08:22)
[2019-02-26] MEDS: ROCEPHIN VIAL 1 GRAM 1 G in NS 100 ML IV + SPIKE MINIBAG* 100 ML IV SCH (08:23)
[2019-02-26] MEDS: MICRO K EXTEN CAP 10 MEQ PO SCH (08:23)
[2019-02-26] MEDS: PROTONIX INJ 40 MG VIAL IVP SCH (08:23)
--- NOTE | 2019-02-26 10:40 | RAD ---
HISTORYcopd follow upSTUDYCHEST, 1 VIEWCOMPARISONJanuary 2019FINDINGSThe trachea is midline. The cardiac silhouette is unremarkable . The lungs are well expanded without focal infiltrate or effusion. Interstitial changes are again noted with flattening of the hemidiaphragms. A suspected loop recorder projects over the left hemithorax.IMPRESSIONRadiographic findings of COPD.Electronically signed by: KASIA WELSH (Feb 26, 2019 10:38:37)
[2019-02-26] MEDS: XANAX PO PRN (11:31)
[2019-02-26 12:21] VITALS: BP 206/90
== END 2019-02-26 12:45 | disposition home or self-care (01) | DRG 690 ==
LOC: ER 11:19 → ICU 18:20 → MED/SURG 02-25 15:15
PROVIDERS: ADMIT Internal Medicine; ATTEND Internal Medicine
DX: I11.0 Hypertensive heart disease with heart failure; I50.9 Heart failure, unspecified; R11.2 Nausea with vomiting, unspecified; Z85.3 Personal history of malignant neoplasm of breast; B96.29 Other Escherichia coli [E. coli] as the cause of diseases classified elsewhere; M54.5 Low back pain; M48.061 Spinal stenosis, lumbar region without neurogenic claudication; M48.04 Spinal stenosis, thoracic region; R94.31 Abnormal electrocardiogram [ECG] [EKG]; E87.1 Hypo-osmolality and hyponatremia; E86.0 Dehydration; M51.36 Other intervertebral disc degeneration, lumbar region; M41.26 Other idiopathic scoliosis, lumbar region; Z85.72 Personal history of non-Hodgkin lymphomas; N39.0 Urinary tract infection, site not specified; E83.42 Hypomagnesemia; I25.10 Atherosclerotic heart disease of native coronary artery without angina pectoris; J44.1 Chronic obstructive pulmonary disease with (acute) exacerbation
CPT/HCPCS: 36415; 51702; 70450; 71010; 71045; 71260; 72128; 72131; 80053; 81001; 82550; 82553; 83735; 84484; 85025; 87040; 87070; 87086; 87088; 87186; 87205; 93005; 96365; 96367; 96372; 97116; 97162; 97165; 97530; 97535; 99285; A4222; C9113; J0696; J1940; J2175; J2300; J2310; J2550; J2930; J3475; J3490; J7030; J7050

== ENCOUNTER 2022-06-29 12:05 | Observation (INO) ==
--- NOTE | 2022-06-29 15:42 | EKG ---
Test Reason : CHF Blood Pressure : */* mmHG Vent. Rate : 52 BPM Atrial Rate : 52 BPM P-R Int : 172 ms QRS Dur : 78 ms QT Int : 412 ms P-R-T Axes : 90 -25 33 degrees QTc Int : 383 ms Sinus bradycardia Low voltage QRS Nonspecific T wave abnormality Abnormal ECG No previous ECGs available Confirmed by Narciso Omer ([id number]) on 06/30/2022 2:40:42 PM Referred By: Confirmed By: Narciso Omer
[2022-06-29 15:58] LABS: BASOPHILS # (AUTO) 0.1 X10^3/uL (0.0-0.1); BASOPHILS % (AUTO) 1.2 % (0.2-1.0); EOSINOPHILS # (AUTO) 0.1 x10^3/uL (0.0-0.2); EOSINOPHILS % (AUTO) 0.9 % (0.9-2.9); HEMATOCRIT 37.9 % (36.0-47.0); HEMOGLOBIN 12.7 g/dL (12.0-16.0); LYMPHOCYTES # (AUTO) 0.7 X10^3/uL (1.3-2.9); LYMPHOCYTES % (AUTO) 9.3 % (21.0-51.0); MEAN CORPUSCULAR HEMOGLOBIN 29.8 pg (27.0-34.0); MEAN CORPUSCULAR HGB CONC 33.6 g/dL (33.0-35.0); MEAN CORPUSCULAR VOLUME 88.8 fL (80.0-100.0); MEAN PLATELET VOLUME 7.2 fL (7.4-11.0); MONOCYTES # (AUTO) 0.3 x10^3/uL (0.3-0.8); MONOCYTES % (AUTO) 4.4 % (0.0-13.0); NEUTROPHILS # (AUTO) 6.4 x10^3/uL (2.2-4.8); NEUTROPHILS % (AUTO) 84.2 % (42.0-75.0); PLATELET COUNT 292 X10^3/uL (150.0-450.0); RED BLOOD COUNT 4.27 X10^6/uL (3.5-5.4); RED CELL DISTRIBUTION WIDTH 13.6 % (11.6-16.5); WHITE BLOOD COUNT 7.6 X10^3/uL (3.6-10.0)
[2022-06-29 16:07] VITALS: BMI 17.3
[2022-06-29 16:09] LABS: ALANINE AMINOTRANSFERASE 20 Units/L (12-78); ALKALINE PHOSPHATASE 71 Units/L (46-116); ASPARTATE AMINO TRANSFERASE 33 Units/L (15-37); BLOOD UREA NITROGEN 12 mg/dL (7-18); CALCIUM 7.8 mg/dL (8.5-10.1); CHLORIDE 102 mmol/L (98-107); COR CA(FOR HYPOALB) 8.6 mg/dL (8.5-10.1); CREATININE 0.72 mg/dL (0.55-1.02); GLUCOSE 88 mg/dL (65-99); SODIUM 141 mmol/L (136-145); TOTAL PROTEIN 5.9 g/dL (6.4-8.2); eGFR NON BLACK RACES > 60 (>60)
[2022-06-29 16:12] LABS: POTASSIUM 2.5 mmol/L (3.5-5.1)
[2022-06-29] MEDS ORDERED: POTASSIUM CHLORIDE LIQ 20 MEQ UDC PO PRN (17:22)
[2022-06-29] MEDS ORDERED: MICRO K EXTEN CAP 10 MEQ PO PRN (17:22)
[2022-06-29] MEDS ORDERED: K-RIDER 10 MEQ/NS 100 ML 10 MEQ/100 ML BAG IV PRN (17:22)
[2022-06-29] MEDS ORDERED: POTASSIUM CHL 40 MEQ/NS 0.45% 500 ML IV PRN (17:22)
[2022-06-29] MEDS ORDERED: POTASSIUM CHL 60 MEQ/NS 0.45% 500 ML IV PRN (17:22)
--- NOTE | 2022-06-29 17:48 | DR.H&P ---
H&P - History & Physical for Day of: H&P Date: 06/29/22 - Chief Complaint Chief Complaint: WEAKNESS, SOB, CCC, LEFT HP PAIN - History of Present Illness History of Present Illness: PT IS 71 WF, DIRECT ADMIT FROM DR SPRINGER OFFICE WITH FAILED OUTPT TREATMENT OF CHF. PT HAS RECENTLY SUFFERED FROM INCREASED WEAKNESS WITH MULTIPLE FALLS. PT REPORTS LEFT FEMUR FRACTUE, HAS NOT SEEN ORTHO DUE TO TRANSPORATION LIMITATIONS AND WEAKNESS FROM WORSENED HEART FAILURE. HOME HEALTH HAS BEEN ADJUSTING LASIX THERAPY WITH DAILY WEIGHT INCREASED AND INCREASED LOWER EXTREMITY EDEMA. PT HAS PMH OF CHF, RESP FAILURE, COPD, CAD, BREAST CANCER, HX LYMPHOMA, MACULAR DEGENERATION AND OA. PT ADMITTED FOR TREATMENT OF ACUTE ILLNESS. - Past Medical History Past Medical History: Anxiety, Arthritis, COPD, Dyslipidemia, Hypertension Additional Medical History: HX BREAST CANCER, HX OF LYMPHOMA - Past Surgical History Surgical History: Appendectomy, Cholecystectomy, Hysterectomy, Mastectomy, Ortho Surgery, Other - Family History Family Medical History: Heart Failure, Hypertension - Social History Does patient currently use any type of tobacco product: Yes Have you used tobacco products in the last 12 months: Yes Type of Tobacco Use: Cigarettes Does any household member use tobacco: Yes Alcohol Use: None Drug Use: None - Medications Home Medications: morphine Allergy (Verified 06/29/22 16:07) Penicillins Allergy (Verified 06/29/22 16:07) wool Allergy (Verified 06/29/22 16:07) GOLD Allergy (Uncoded 06/29/22 16:07) SHEEP SKIN Allergy (Uncoded 06/29/22 16:07) - Review of Systems Constitutional: Weakness, Malaise Eyes: No Symptoms Reported ENT: No Symptoms Reported Respiratory: Cough, Shortness of Breath, Sputum, Wheezing Cardiovascular: Chest Pain, Edema Gastrointestinal: Nausea Genitourinary: No Symptoms Reported Musculoskeletal: Back Pain, Leg Pain Skin: No Symptoms Reported Neurological: Weakness - Physical Exam Vital Signs: Temperature 98.0 F Pulse Rate [Left Radial] 56 Respiratory Rate 20 Blood Pressure [Left Arm] 122/62 Blood Pressure [Right Arm] 190/89 Blood Pressure 109/58 O2 Sat by Pulse Oximetry 94 Oriented: Normal Eyes: Blurred Vision Ear: Normal Nose: Normal Throat: Normal Respiratory: Rhonchi Throughout, Wheezes Throughout Cardiovascular: Murmur, Edema : Normal Auscultation: Bowel Sounds: Normal Palpation: Normal Tenderness: Normal Skin: Decreased Turgur Musculoskeletal: Left, Hip, Back:Lumbar, Deformity (ADVANCED SCOLIOSIS), Motor Deficit, Sensory Deficit Psychiatric: Anxiety Mood Description: Anxious Affect: Anxious Speech Pattern: Clear, Appropriate - Assessment/Plan (1) CHF (congestive heart failure) Qualifiers: Heart failure chronicity: acute on chronic Status: Acute Plan: ADMIT, CARDIAC ENZYMES AND EKG. CXR ON ADMISSION, STRICT I&OS. PT CONSULT, RESP THERAPY. SUPPLEMENTAL O2, IV LEVAQUIN, SPUTUM CULTURE. VERIFY HOME MEDICATION, BB, STATIN, PLAVIX AND ASPIRIN. WILL ATTEMPT GENTLE DIURESIS WHEN STABLE ELECTROLYTE LEVELS (2) COPD (chronic obstructive pulmonary disease) Status: Acute (3) Closed left femoral fracture Status: Acute (4) Hypertension Qualifiers: Hypertension type: essential hypertension Qualified Code(s): I10 - Essential (primary) hypertension Status: Acute (5) Hypokalemia Status: Acute (6) Degenerative joint disease (DJD) of lumbar spine Qualifiers: Spinal osteoarthritis complication: with radiculopathy Qualified Code(s): M47.26 - Other spondylosis with radiculopathy, lumbar region Status: Chronic - Allergies Allergies/Adverse Reactions: Allergies Allergy/AdvReac Type Severity Reaction Status Date / Time morphine Allergy Verified 06/29/22 16:07 Penicillins Allergy Verified 06/29/22 16:07 wool Allergy Verified 06/29/22 16:07 GOLD Allergy Uncoded 06/29/22 16:07 SHEEP SKIN Allergy Uncoded 06/29/22 16:07
[2022-06-29] MEDS: LEVAQUIN PREMIX IV 500 MG 500 MG/100 ML BAG IV SCH (18:01)
[2022-06-29] MEDS: NS 1,000 ML IV 1,000 ML IV SCH (18:01)
[2022-06-29] MEDS: K-DUR TAB 20 MEQ PO PRN (18:01)
[2022-06-29] MEDS: TYLENOL #3 TAB (W/CODEINE) PO PRN (19:05)
[2022-06-29] MEDS: ZOCOR TAB 10 MG PO SCH (20:23)
[2022-06-29] MEDS: NORVASC TAB 5 MG PO SCH (20:23)
[2022-06-29] MEDS: XANAX PO PRN (20:23)
[2022-06-29] MEDS: NEURONTIN CAP 400 MG PO SCH (21:00)
[2022-06-29] MEDS: KLOR-CON PO PRN (21:07)
[2022-06-29] MEDS: MAGNESIUM SULFATE 1 GRAM/100 mL PREMIX 1 G/100 ML BAG IV PRN ×2 (21:07→22:33)
[2022-06-29] MEDS: LIORESAL PO SCH (21:29)
[2022-06-30] MEDS: TYLENOL #3 TAB (W/CODEINE) PO PRN ×4 (04:20→23:55)
[2022-06-30 05:05] LABS: BASOPHILS # (AUTO) 0.1 X10^3/uL (0.0-0.1); BASOPHILS % (AUTO) 1.2 % (0.2-1.0); EOSINOPHILS # (AUTO) 0.1 x10^3/uL (0.0-0.2); EOSINOPHILS % (AUTO) 1.8 % (0.9-2.9); HEMATOCRIT 36.9 % (36.0-47.0); HEMOGLOBIN 12.5 g/dL (12.0-16.0); LYMPHOCYTES # (AUTO) 0.8 X10^3/uL (1.3-2.9); LYMPHOCYTES % (AUTO) 12.9 % (21.0-51.0); MEAN CORPUSCULAR HEMOGLOBIN 29.8 pg (27.0-34.0); MEAN CORPUSCULAR HGB CONC 33.8 g/dL (33.0-35.0); MEAN CORPUSCULAR VOLUME 88.1 fL (80.0-100.0); MEAN PLATELET VOLUME 7.1 fL (7.4-11.0); MONOCYTES # (AUTO) 0.4 x10^3/uL (0.3-0.8); MONOCYTES % (AUTO) 6.1 % (0.0-13.0); NEUTROPHILS # (AUTO) 4.9 x10^3/uL (2.2-4.8); PLATELET COUNT 297 X10^3/uL (150.0-450.0); RED BLOOD COUNT 4.19 X10^6/uL (3.5-5.4); WHITE BLOOD COUNT 6.3 X10^3/uL (3.6-10.0)
[2022-06-30 05:21] LABS: ALANINE AMINOTRANSFERASE 15 Units/L (12-78); ALBUMIN 2.5 g/dL (3.4-5.0); ALKALINE PHOSPHATASE 77 Units/L (46-116); ASPARTATE AMINO TRANSFERASE 19 Units/L (15-37); BLOOD UREA NITROGEN 10 mg/dL (7-18); CALCIUM 7.6 mg/dL (8.5-10.1); CARBON DIOXIDE 29.1 mmol/L (21-32); CHLORIDE 107 mmol/L (98-107); COR CA(FOR HYPOALB) 8.8 mg/dL (8.5-10.1); CREATININE 0.59 mg/dL (0.55-1.02); GLUCOSE 90 mg/dL (65-99); MAGNESIUM 2.2 mg/dL (2.0-2.9); POTASSIUM 3.4 mmol/L (3.5-5.1); SODIUM 141 mmol/L (136-145); TOTAL PROTEIN 5.4 g/dL (6.4-8.2); eGFR NON BLACK RACES > 60 (>60)
[2022-06-30] MEDS: LIORESAL PO SCH ×3 (05:26→21:14)
--- NOTE | 2022-06-30 07:38 | RAD ---
HISTORYCHFSTUDYPortable AP chestCOMPARISONMarch 2021FINDINGSThe patient is markedly rotated to the left limiting evaluation of the lungs, mediastinum and hilar structures.The heart is not obviously enlarged and there is no definite pulmonary consolidation or pleural effusion.IMPRESSIONNo definite abnormality, see above. Repeat recommended.Electronically signed by: IRAIS MARTE (June 30, 2022 07:37:14)
--- NOTE | 2022-06-30 07:51 | RAD ---
HISTORYFellSTUDYLeft femur four viewsCOMPARISONCT left hip April 21, 2022FINDINGSThere is a displaced fracture deformity of the proximal femur/greater trochanter. The femoral head is in normal position. The distal femur is normal and intact.IMPRESSIONFracture proximal femur/greater trochanter is present, and was described on previous CT of 04/21/2022.Electronically signed by: IRAIS MARTE (June 30, 2022 07:50:24)
[2022-06-30] MEDS ORDERED: TOPROL XL PO ONE (08:28)
[2022-06-30] MEDS: ASPIRIN EC 81 MG PO SCH (08:37)
[2022-06-30] MEDS: NEURONTIN CAP 400 MG PO SCH ×4 (08:37→21:13)
[2022-06-30] MEDS: TOPROL XL PO SCH (08:37)
[2022-06-30] MEDS: NORVASC TAB 5 MG PO SCH ×2 (08:38→21:14)
[2022-06-30] MEDS: PLAVIX PO SCH (08:38)
[2022-06-30] MEDS: PROTONIX TAB 40 MG PO SCH (08:38)
[2022-06-30] MEDS: ZETIA TAB 10 MG PO SCH (08:38)
[2022-06-30] MEDS: ZESTRIL TAB 40 MG PO SCH (08:38)
[2022-06-30] MEDS: LASIX IVP SCH (09:00)
[2022-06-30] MEDS: MICRO K EXTEN CAP 10 MEQ PO SCH (09:00)
[2022-06-30] MEDS: NICOTINE PATCH TD SCH (09:41)
[2022-06-30] MEDS: XANAX PO PRN ×2 (09:42→21:14)
[2022-06-30 09:48] LABS: MAGNESIUM 2.2 mg/dL (2.0-2.9)
--- NOTE | 2022-06-30 10:24 | RAD ---
HISTORYCHF COPDSTUDYAP [id number]/19/2023FINDINGSSimilar upper-normal heart size with no definite pulmonary consolidation, edema or pleural fluid.IMPRESSIONNo acute chest findings.Electronically signed by: IRAIS MARTE (June 30, 2022 10:22:53)
--- NOTE | 2022-06-30 13:56 | PCM.PROG ---
Progress Note - Progress Note for Day of Date of Exam: 06/30/22 - Subjective Subjective: PT IS 71 WF, DIRECT ADMIT WITH FAILED OUTPT TREATMENT OF CHF AND COPD EXACERBATION. PT HAS A LEFT FEMUR FRACTURE THAT OCCURRED IN APRIL, SHE HAS NOT SEEN AN ORTHO CONSULT DUE TO "TRANSPORTATION" ISSUES. PT WAS HYPOKALEMIC ON ADMISSION, DUE TO LOW POTASSIUM WE RESUMED IV LASIX THIS AM WITH IMPROVED POTASSIUM LEVELS. PT IS ON IV ATBX THERAPY FOR COPD EXACERATION. PT HAS BEEN UNABLE TO PRODUCE A SPUTUM SPECIMEN. PTS HOME MEDICATION HAS BEEN VERIFIED AND RESUMED. PT IS ANXIOUS THIS MORNING. PT EDUCATED ON IMPORTANCE OF ORTHOPEDIC EVALUATION WITH HER FEMUR FRACTURE. REPEAT RAD WAS REVIEWED. PT CO PAIN TO HIP, BACK AND LEGS THIS MORNING. SHE HAS MARKED IMPROVING BILATERAL LOWER EXTREMITY EDEMA. - Past Medical Family Social History Past Med/Fam/Surg Hx: No changes since H&P Allergies: Allergies morphine Allergy (Verified 06/29/22 16:07) Penicillins Allergy (Verified 06/29/22 16:07) wool Allergy (Verified 06/29/22 16:07) GOLD Allergy (Uncoded 06/29/22 16:07) SHEEP SKIN Allergy (Uncoded 06/29/22 16:07) - Review of Systems ROS: No change since H&P - Vital Signs and I&O's Vital Signs: Temperature 98.2 F Pulse Rate [Left Radial] 60 Respiratory Rate 18 Blood Pressure [Left Arm] 167/77 Blood Pressure [Right Arm] 179/81 Blood Pressure 109/58 O2 Sat by Pulse Oximetry 99 Intake and Output: Intake & Output 06/28/22 06/29/22 06/30/22 07/01/22 11:59 11:59 11:59 11:59 Intake Total 1399 / 1399 Balance 1399 / 1399 - Physical Exam Oriented: Normal Eyes: Blurred Vision Ear: Normal Nose: Normal Throat: Normal Respiratory: Diminished, Wheezes, Rhonchi Cardiovascular: Murmur, Edema : Normal Auscultation: Bowel Sounds: Normal Tenderness: Normal Skin: Decreased Turgur Musculoskeletal: Left, Hip, Back:Lumbar, Deformity (ADVANCED SCOLIOSIS), Motor Deficit, Sensory Deficit Psychiatric: Anxiety Mood Description: Anxious Affect: Anxious Speech Pattern: Clear, Appropriate - Laboratory and Diagnostics Result Diagrams: 06/30/22 04:33 06/30/22 04:33 Labs: Laboratory WBC 6.3 X10^3/uL (3.6-10.0) 06/30/22 04:33 RBC 4.19 X10^6/uL (3.5-5.4) 06/30/22 04:33 Hgb 12.5 g/dL (12.0-16.0) 06/30/22 04:33 Hct 36.9 % (36.0-47.0) 06/30/22 04:33 MCV 88.1 fL (80.0-100.0) 06/30/22 04:33 MCH 29.8 pg (27.0-34.0) 06/30/22 04:33 MCHC 33.8 g/dL (33.0-35.0) 06/30/22 04:33 RDW 14.0 % (11.6-16.5) 06/30/22 04:33 Plt Count 297 X10^3/uL (150.0-450.0) 06/30/22 04:33 MPV 7.1 fL (7.4-11.0) L 06/30/22 04:33 Neut % (Auto) 78.0 % (42.0-75.0) H 06/30/22 04:33 Lymph % (Auto) 12.9 % (21.0-51.0) L 06/30/22 04:33 Garfield % (Auto) 6.1 % (0.0-13.0) 06/30/22 04:33 Eos % (Auto) 1.8 % (0.9-2.9) 06/30/22 04:33 Baso % (Auto) 1.2 % (0.2-1.0) H 06/30/22 04:33 Neut # (Auto) 4.9 x10^3/uL (2.2-4.8) H 06/30/22 04:33 Lymph # (Auto) 0.8 X10^3/uL (1.3-2.9) L 06/30/22 04:33 Garfield # (Auto) 0.4 x10^3/uL (0.3-0.8) 06/30/22 04:33 Eos # (Auto) 0.1 x10^3/uL (0.0-0.2) 06/30/22 04:33 Baso # (Auto) 0.1 X10^3/uL (0.0-0.1) 06/30/22 04:33 Absolute Nucleated RBC 0.0 /100WBC 06/30/22 04:33 Sodium 141 mmol/L (136-145) 06/30/22 04:33 Corrected Sodium TNP 06/30/22 04:33 Potassium 3.4 mmol/L (3.5-5.1) L 06/30/22 04:33 Chloride 107 mmol/L (98-107) 06/30/22 04:33 Carbon Dioxide 29.1 mmol/L (21-32) 06/30/22 04:33 BUN 10 mg/dL (7-18) 06/30/22 04:33 Creatinine 0.59 mg/dL (0.55-1.02) 06/30/22 04:33 Est GFR (MDRD) Af Amer > 60 (>60) 06/30/22 04:33 Est GFR (MDRD) Non-Af > 60 (>60) 06/30/22 04:33 Glucose 90 mg/dL (65-99) 06/30/22 04:33 Calcium 7.6 mg/dL (8.5-10.1) L 06/30/22 04:33 Corrected Calcium 8.8 mg/dL (8.5-10.1) 06/30/22 04:33 Magnesium 2.2 mg/dL (2.0-2.9) 06/30/22 04:33 Magnesium 2.2 mg/dL (2.0-2.9) 06/30/22 04:33 Iron 39 ug/dL (50-175) L 06/30/22 04:33 Ferritin 19 ng/mL (8-252) 06/30/22 04:33 Total Bilirubin 0.10 mg/dL (0.2-1.0) L 06/30/22 04:33 AST 19 Units/L (15-37) 06/30/22 04:33 ALT 15 Units/L (12-78) 06/30/22 04:33 Alkaline Phosphatase 77 Units/L (46-116) 06/30/22 04:33 Creatine Kinase 172 Units/L (26-192) 06/29/22 15:35 Troponin I High Sens 14.0 ng/L (4.0-60.0) 06/29/22 15:35 B-Natriuretic Peptide 201 pg/mL (0-79) H 06/30/22 04:33 Total Protein 5.4 g/dL (6.4-8.2) L 06/30/22 04:33 Albumin 2.5 g/dL (3.4-5.0) L 06/30/22 04:33 Globulin 2.9 g/dL (2.5-4.5) 06/30/22 04:33 Albumin/Globulin Ratio 0.9 Ratio (1.1-2.1) L 06/30/22 04:33 - Plan (1) CHF (congestive heart failure) Status: Acute Qualifiers: Heart failure chronicity: acute on chronic Plan: CARDIAC ENZYMES AND EKG. CXR ON ADMISSION, STRICT I&OS. PT CONSULT, RESP THERAPY. SUPPLEMENTAL O2, IV LEVAQUIN, SPUTUM CULTURE. VERIFY HOME MEDICATION, BB, STATIN, PLAVIX AND ASPIRIN. WILL ATTEMPT GENTLE DIURESIS WHEN STABLE ELECTROLYTE LEVELS (2) Closed left femoral fracture Status: Acute Qualifiers: Encounter type: subsequent encounter (3) COPD (chronic obstructive pulmonary disease) Status: Acute (4) Hypertension Status: Acute Qualifiers: Hypertension type: essential hypertension Qualified Code(s): I10 - Essential (primary) hypertension (5) Hypokalemia Status: Acute (6) Degenerative joint disease (DJD) of lumbar spine Status: Chronic Qualifiers: Spinal osteoarthritis complication: with radiculopathy Qualified Code(s): M47.26 - Other spondylosis with radiculopathy, lumbar region
[2022-06-30] MEDS ORDERED: NEOSPORIN OINT ONE (16:23)
[2022-06-30] MEDS: LEVAQUIN PREMIX IV 500 MG 500 MG/100 ML BAG IV SCH (21:13)
[2022-06-30] MEDS: NS 1,000 ML IV 1,000 ML IV SCH (21:13)
[2022-06-30] MEDS: ZOCOR TAB 10 MG PO SCH (21:14)
[2022-07-01] MEDS: LIORESAL PO SCH ×2 (05:20→14:09)
[2022-07-01] MEDS: TYLENOL #3 TAB (W/CODEINE) PO PRN ×2 (05:43→15:19)
[2022-07-01 05:51] LABS: BASOPHILS # (AUTO) 0.1 X10^3/uL (0.0-0.1); BASOPHILS % (AUTO) 1.1 % (0.2-1.0); EOSINOPHILS # (AUTO) 0.1 x10^3/uL (0.0-0.2); EOSINOPHILS % (AUTO) 1.5 % (0.9-2.9); HEMATOCRIT 37.3 % (36.0-47.0); HEMOGLOBIN 12.6 g/dL (12.0-16.0); LYMPHOCYTES # (AUTO) 0.8 X10^3/uL (1.3-2.9); LYMPHOCYTES % (AUTO) 11.4 % (21.0-51.0); MEAN CORPUSCULAR HEMOGLOBIN 29.7 pg (27.0-34.0); MEAN CORPUSCULAR HGB CONC 33.7 g/dL (33.0-35.0); MEAN CORPUSCULAR VOLUME 88.1 fL (80.0-100.0); MEAN PLATELET VOLUME 7.2 fL (7.4-11.0); MONOCYTES # (AUTO) 0.4 x10^3/uL (0.3-0.8); MONOCYTES % (AUTO) 6.1 % (0.0-13.0); NEUTROPHILS # (AUTO) 5.3 x10^3/uL (2.2-4.8); NEUTROPHILS % (AUTO) 79.9 % (42.0-75.0); PLATELET COUNT 276 X10^3/uL (150.0-450.0); RED BLOOD COUNT 4.23 X10^6/uL (3.5-5.4); WHITE BLOOD COUNT 6.6 X10^3/uL (3.6-10.0)
[2022-07-01 05:59] LABS: ALANINE AMINOTRANSFERASE 14 Units/L (12-78); ALBUMIN 2.5 g/dL (3.4-5.0); ALKALINE PHOSPHATASE 66 Units/L (46-116); ASPARTATE AMINO TRANSFERASE 18 Units/L (15-37); BLOOD UREA NITROGEN 6 mg/dL (7-18); CALCIUM 7.8 mg/dL (8.5-10.1); CARBON DIOXIDE 31.1 mmol/L (21-32); CHLORIDE 104 mmol/L (98-107); CREATININE 0.37 mg/dL (0.55-1.02); GLUCOSE 94 mg/dL (65-99); SODIUM 140 mmol/L (136-145); TOTAL PROTEIN 5.3 g/dL (6.4-8.2); eGFR NON BLACK RACES > 60 (>60)
[2022-07-01 06:01] LABS: POTASSIUM 2.7 mmol/L (3.5-5.1)
[2022-07-01] MEDS: KLOR-CON PO PRN (06:07)
[2022-07-01] MEDS: NS 1,000 ML IV 1,000 ML IV SCH ×2 (06:50→12:00)
[2022-07-01] MEDS ORDERED: TOPROL XL PO ONE (08:11)
[2022-07-01] MEDS: LASIX IVP SCH (09:09)
[2022-07-01] MEDS: PROTONIX TAB 40 MG PO SCH (09:10)
[2022-07-01] MEDS: ZETIA TAB 10 MG PO SCH (09:10)
[2022-07-01] MEDS: MICRO K EXTEN CAP 10 MEQ PO SCH (09:10)
[2022-07-01] MEDS: NEURONTIN CAP 400 MG PO SCH ×3 (09:10→16:35)
[2022-07-01] MEDS: PLAVIX PO SCH (09:11)
[2022-07-01] MEDS: ASPIRIN EC 81 MG PO SCH (09:11)
[2022-07-01] MEDS: TOPROL XL PO SCH (09:11)
[2022-07-01] MEDS: ZESTRIL TAB 40 MG PO SCH (09:11)
[2022-07-01] MEDS: NORVASC TAB 5 MG PO SCH (09:11)
[2022-07-01] MEDS: NICOTINE PATCH TD SCH (09:12)
[2022-07-01] MEDS: XANAX PO PRN (11:32)
[2022-07-01] MEDS: K-DUR TAB 20 MEQ PO PRN (11:33)
[2022-07-01 12:35] VITALS: PULSE 59; O2SAT 94
--- NOTE | 2022-07-01 15:56 | CT ---
HISTORYLeft femur fracture, history of fall.STUDYCT pelvis without contrastCT left lower extremity without contrastCOMPARISONCT pelvis without contrast from 06/12/2022.TECHNIQUENoncontrast CT imaging was performed through the pelvis and the left lower extremity. Dose reduction techniques including Automated Exposure Control (AEC) and adjustment of mA and kV were utilized.FINDINGSCT PELVIS:Bones: There is a similar acute comminuted fracture of the greater trochanter of the left femur. A nondisplaced fracture of the sacrum seen mainly to the right of midline at the level of S4 is unchanged. No other acute fracture or dislocation.Soft tissues: Surrounding edema is seen at the level of the left greater trochanter femoral fracture. No other acute findings are identified. No other significant interval changes.CT LEFT LOWER EXTREMITY:Bones: No other acute fracture or dislocation is identified besides the greater trochanteric fracture.Soft tissues: There is mild generalized edema without other acute findings.IMPRESSIONUnchanged left femoral and sacral fractures compared to the CT pelvis performed on 06/12/2022. No new acute findings.Electronically signed by: Derik Rodrigues (July 01, 2022 15:55:19)
--- NOTE | 2022-07-01 15:57 | CT ---
Please see the separately dictated report for the CT pelvis without contrast performed concomitantly.Electronically signed by: Derik Rodrigues (July 01, 2022 15:55:46)
[2022-07-01 16:46] VITALS: BP 174/84; TEMP 98.1
== END 2022-07-01 17:18 | disposition home or self-care (01) ==
LOC: MED/SURG
PROVIDERS: ADMIT Internal Medicine; ATTEND Internal Medicine
DX: I11.0 Hypertensive heart disease with heart failure; M47.26 Other spondylosis with radiculopathy, lumbar region; E78.2 Mixed hyperlipidemia; E87.6 Hypokalemia; Z91.81 History of falling; S72.112G Displaced fracture of greater trochanter of left femur, subsequent encounter for closed fracture with delayed healing; R60.0 Localized edema; Z59.82 Transportation insecurity; R06.02 Shortness of breath; R62.7 Adult failure to thrive; J44.1 Chronic obstructive pulmonary disease with (acute) exacerbation; R53.1 Weakness; R94.31 Abnormal electrocardiogram [ECG] [EKG]; W18.39XD Other fall on same level, subsequent encounter; I25.10 Atherosclerotic heart disease of native coronary artery without angina pectoris; R29.6 Repeated falls; F41.8 Other specified anxiety disorders; I50.9 Heart failure, unspecified

== ENCOUNTER 2022-07-28 17:58 | Observation (INO) ==
--- NOTE | 2022-07-28 18:12 | DR.GENAD ---
HPI Time Seen Time Seen by Provider: 07/28/22 18:11 PMH PMH Past Medical History: Anxiety, Arthritis, COPD, Dyslipidemia and Hypertension Past Surgical History: Yes Surgical History: Appendectomy, Cholecystectomy, Hysterectomy, Mastectomy, Ortho Surgery and Other Family History Family Medical History: Heart Failure and Hypertension Social History Do you use any recreational Drugs:: No PE Vital Signs Vitals: Vital Signs Temperature 98.9 F Pulse Rate 62 Pulse Rate 65 Pulse Rate 64 Pulse Rate 63 Pulse Rate 61 Pulse Rate 63 Pulse Rate 63 Pulse Rate 63 Pulse Rate 67 Pulse Rate 68 Pulse Rate 71 Pulse Rate 95 Pulse Rate 63 Pulse Rate 74 Pulse Rate 66 Pulse Rate 68 Pulse Rate 70 Pulse Rate 86 Pulse Rate 76 Respiratory Rate 55 Respiratory Rate 65 Respiratory Rate 58 Respiratory Rate 64 Respiratory Rate 62 Respiratory Rate 53 Respiratory Rate 53 Respiratory Rate 64 Respiratory Rate 53 Respiratory Rate 48 Respiratory Rate 19 Respiratory Rate 24 Respiratory Rate 29 Respiratory Rate 18 Respiratory Rate 16 Respiratory Rate 15 Respiratory Rate 20 Respiratory Rate 37 Blood Pressure 152/70 Blood Pressure 150/67 Blood Pressure 124/70 Blood Pressure 124/70 Blood Pressure 125/62 Blood Pressure 132/62 Blood Pressure 132/62 Blood Pressure 131/65 Blood Pressure 170/74 Blood Pressure 148/62 O2 Sat by Pulse Oximetry 94 O2 Sat by Pulse Oximetry 91 O2 Sat by Pulse Oximetry 91 O2 Sat by Pulse Oximetry 91 O2 Sat by Pulse Oximetry 94 O2 Sat by Pulse Oximetry 93 O2 Sat by Pulse Oximetry 93 O2 Sat by Pulse Oximetry 94 O2 Sat by Pulse Oximetry 95 O2 Sat by Pulse Oximetry 94 O2 Sat by Pulse Oximetry 93 O2 Sat by Pulse Oximetry 96 O2 Sat by Pulse Oximetry 95 O2 Sat by Pulse Oximetry 95 O2 Sat by Pulse Oximetry 91 O2 Sat by Pulse Oximetry 91 O2 Sat by Pulse Oximetry 96 O2 Sat by Pulse Oximetry 94 O2 Sat by Pulse Oximetry 91 O2 Sat by Pulse Oximetry 93 07/28/22 19:45 07/28/22 20:09 07/28/22 20:00 Pulse Rate 74 95 H Pulse Rhythm Regular Pulse Strength Normal Pulse Assessment Method Monitor Respiratory Rate 18 24 O2 Sat by Pulse Oximetry 95 96 Blood Pressure 132/62 132/62 Blood Pressure Mean 89 Blood Pressure Source Automatic Cuff Blood Pressure Position Semi Adan's 07/28/22 20:00 07/28/22 20:15 07/28/22 20:29 Pulse Rate 63 71 68 Pulse Rhythm Pulse Strength Pulse Assessment Method Respiratory Rate 29 H 19 48 H O2 Sat by Pulse Oximetry 95 93 L 94 L Blood Pressure Blood Pressure Mean Blood Pressure Source Blood Pressure Position 07/28/22 20:30 07/28/22 20:30 07/28/22 20:45 Pulse Rate 67 63 Pulse Rhythm Pulse Strength Pulse Assessment Method Respiratory Rate 53 H 64 H O2 Sat by Pulse Oximetry 95 94 L Blood Pressure 125/62 Blood Pressure Mean 87 Blood Pressure Source Blood Pressure Position 07/28/22 21:00 07/28/22 21:00 07/28/22 21:00 Pulse Rate 63 Pulse Rhythm Pulse Strength Pulse Assessment Method Respiratory Rate 53 H O2 Sat by Pulse Oximetry 93 L Blood Pressure 124/70 124/70 Blood Pressure Mean 92 92 Blood Pressure Source Blood Pressure Position 07/28/22 21:00 07/28/22 21:15 07/28/22 21:30 Pulse Rate 63 61 Pulse Rhythm Pulse Strength Pulse Assessment Method Respiratory Rate 53 H 62 H O2 Sat by Pulse Oximetry 93 L 94 L Blood Pressure 150/67 Blood Pressure Mean 96 Blood Pressure Source Blood Pressure Position 07/28/22 21:30 07/28/22 21:45 07/28/22 22:00 Pulse Rate 63 64 Pulse Rhythm Pulse Strength Pulse Assessment Method Respiratory Rate 64 H 58 H O2 Sat by Pulse Oximetry 91 L 91 L Blood Pressure 152/70 Blood Pressure Mean 100 Blood Pressure Source Blood Pressure Position 07/28/22 22:00 07/28/22 22:15 Pulse Rate 65 62 Pulse Rhythm Pulse Strength Pulse Assessment Method Respiratory Rate 65 H 55 H O2 Sat by Pulse Oximetry 91 L 94 L Blood Pressure Blood Pressure Mean Blood Pressure Source Blood Pressure Position ROR Labs Reviewed Result Diagrams: 07/28/22 18:53 07/28/22 22:19 Laboratory: WBC 4.6 X10^3/uL (3.6-10.0) 07/28/22 18:53 RBC 4.14 X10^6/uL (3.5-5.4) 07/28/22 18:53 Hgb 12.3 g/dL (12.0-16.0) 07/28/22 18:53 Hct 35.8 % (36.0-47.0) L 07/28/22 18:53 MCV 86.5 fL (80.0-100.0) 07/28/22 18:53 MCH 29.7 pg (27.0-34.0) 07/28/22 18:53 MCHC 34.3 g/dL (33.0-35.0) 07/28/22 18:53 RDW 13.5 % (11.6-16.5) 07/28/22 18:53 Plt Count 296 X10^3/uL (150.0-450.0) 07/28/22 18:53 MPV 6.8 fL (7.4-11.0) L 07/28/22 18:53 Neut % (Auto) 83.5 % (42.0-75.0) H 07/28/22 18:53 Lymph % (Auto) 9.0 % (21.0-51.0) L 07/28/22 18:53 Hamilton % (Auto) 6.8 % (0.0-13.0) 07/28/22 18:53 Eos % (Auto) 0.0 % (0.9-2.9) L 07/28/22 18:53 Baso % (Auto) 0.7 % (0.2-1.0) 07/28/22 18:53 Neut # (Auto) 3.9 x10^3/uL (2.2-4.8) 07/28/22 18:53 Lymph # (Auto) 0.4 X10^3/uL (1.3-2.9) L 07/28/22 18:53 Hamilton # (Auto) 0.3 x10^3/uL (0.3-0.8) 07/28/22 18:53 Eos # (Auto) 0.0 x10^3/uL (0.0-0.2) 07/28/22 18:53 Baso # (Auto) 0.0 X10^3/uL (0.0-0.1) 07/28/22 18:53 Absolute Nucleated RBC 0.0 /100WBC 07/28/22 18:53 Sodium 140 mmol/L (136-145) 07/28/22 18:53 Corrected Sodium 141 mmol/L (136-145) 07/28/22 18:53 Potassium 2.4 mmol/L (3.5-5.1) L* 07/28/22 22:19 Chloride 101 mmol/L (98-107) 07/28/22 18:53 Carbon Dioxide 33.1 mmol/L (21-32) H 07/28/22 18:53 BUN 5 mg/dL (7-18) L 07/28/22 18:53 Creatinine 0.48 mg/dL (0.55-1.02) L 07/28/22 18:53 Est GFR (MDRD) Af Amer > 60 (>60) 07/28/22 18:53 Est GFR (MDRD) Non-Af > 60 (>60) 07/28/22 18:53 Glucose 124 mg/dL (65-99) H 07/28/22 18:53 Lactic Acid 0.6 mmol/L (0.4-2.0) 07/28/22 18:53 Calcium 8.0 mg/dL (8.5-10.1) L 07/28/22 18:53 Corrected Calcium 8.9 mg/dL (8.5-10.1) 07/28/22 18:53 Magnesium Cancelled 07/28/22 22:19 Total Bilirubin 0.30 mg/dL (0.2-1.0) 07/28/22 18:53 AST 35 Units/L (15-37) 07/28/22 18:53 ALT 29 Units/L (12-78) 07/28/22 18:53 Alkaline Phosphatase 63 Units/L (46-116) 07/28/22 18:53 Creatine Kinase 246 Units/L (26-192) H 07/28/22 18:53 Troponin I High Sens 51.6 ng/L (4.0-60.0) 07/28/22 18:53 B-Natriuretic Peptide 274 pg/mL (0-79) H 07/28/22 18:53 Total Protein 5.9 g/dL (6.4-8.2) L 07/28/22 18:53 Albumin 2.9 g/dL (3.4-5.0) L 07/28/22 18:53 Globulin 3.0 g/dL (2.5-4.5) 07/28/22 18:53 Albumin/Globulin Ratio 1.0 Ratio (1.1-2.1) L 07/28/22 18:53 Specimen Type Catherized urine 07/28/22 19:10 Urine Color Straw (YELLOW) 07/28/22 19:10 Urine Appearance Clear (CLEAR) 07/28/22 19:10 Urine pH 7.0 (5.0 - 8.0) 07/28/22 19:10 Ur Specific Harmans 1.015 (1.000-1.030) 07/28/22 19:10 Urine Protein Negative (NEGATIVE) 07/28/22 19:10 Urine Glucose (UA) Negative (NEGATIVE) 07/28/22 19:10 Urine Ketones Negative (NEGATIVE) 07/28/22 19:10 Urine Blood Negative (NEGATIVE) 07/28/22 19:10 Urine Nitrite Positive (NEGATIVE) 07/28/22 19:10 Urine Bilirubin Negative (NEGATIVE) 07/28/22 19:10 Urine Urobilinogen Normal (NORMAL) 07/28/22 19:10 Ur Leukocyte Esterase 2+ (NEGATIVE) 07/28/22 19:10 Urine RBC 0-2 /HPF (0-3) 07/28/22 19:10 Urine WBC 0-2 /HPF (0-5) 07/28/22 19:10 Ur Squamous Epith Cells Rare /HPF (NEGATIVE) 07/28/22 19:10 Amorphous Sediment Trace /HPF (NEGATIVE) 07/28/22 18:15 Urine Bacteria 2+ /HPF (NEGATIVE) 07/28/22 19:10 Ur Culture Indicated? Yes/culture set up 07/28/22 19:10 SARS-CoV-2 (PCR) Negative (NEGATIVE) 07/28/22 20:35 Influenza Type A (PCR) Negative (NEGATIVE) 07/28/22 20:35 Influenza Type B (PCR) Negative (NEGATIVE) 07/28/22 20:35 RSV (PCR) Negative (NEGATIVE) 07/28/22 20:35 Opioid Opioid Risk Tool Age (Filipe box if 16-45): No History of Preadolescent Sexual Abuse: No Total: 0 Total Score Risk Category: Low Risk Copyright: Jeanmarie TSE predicting aberrant behaviors Discharge Plan Diagnosis Discharge Problem: Electrolyte imbalance, Weakness UTI (urinary tract infection) Qualifiers: Urinary tract infection type: site unspecified Hematuria presence: with hematuria Qualified Code(s): N39.0 - Urinary tract infection, site not specified CHF (congestive heart failure) Qualifiers: Heart failure type: combined systolic and diastolic Heart failure chronicity: acute on chronic Qualified Code(s): I50.43 - Acute on chronic combined systolic (congestive) and diastolic (congestive) heart failure Discharge Plan Patient Disposition: 09 ADMITTED INPATIENT Condition: Stable Orders to Discharge Patient Discharge Orders: Transfer (Routine); Ordered 07/28/22 Ordered By: KAEL SINGH
[2022-07-28 18:30] VITALS: BMI 17.2
[2022-07-28 18:39] LABS: BILIRUBIN,URINE NEGATIVE (NEGATIVE); BLOOD/HEMOGLOBIN,URINE 1+ (NEGATIVE); GLUCOSE, URINE NEGATIVE (NEGATIVE); KETONES,URINE NEGATIVE (NEGATIVE); LEUKOCYTE ESTERASE ,URINE 1+ (NEGATIVE); NITRITES,URINE POSITIVE (NEGATIVE); PROTEIN,URINE NEGATIVE (NEGATIVE); UROBILINOGEN,URINE NORMAL (NORMAL)
[2022-07-28 18:50] LABS: APPEARANCE,URINE CLEAR (CLEAR); COLOR,URINE PALE YELLOW (YELLOW)
[2022-07-28 18:51] LABS: BACTERIA,URINE 2+ /HPF (NEGATIVE); RBC,URINE NONE SEEN /HPF (0-3); SQUAMOUS EPITHELIAL CELL,UR NEGATIVE /HPF (NEGATIVE)
--- NOTE | 2022-07-28 18:53 | CT ---
HISTORYWEAKNESS, AMSSTUDYBRAIN W/O CONCOMPARISONMay 2022TECHNIQUEAxial non-contrast images of the head with coronal and sagittal reformats.Radiation dose: 864.84 mGy-cm total DLPFINDINGSNo abnormal areas of acute attenuation in the brain parenchyma.Marroquin-white differentiation remains intact.No intracranial, extra-axial, fluid collection.No hemorrhage.No mass, mass effect or midline shift.No ventriculomegaly.No acute fracture.Sinuses are well aerated.Mastoid air cells are well aerated.Globes and intraorbital contents are unremarkable.IMPRESSIONNo acute intracranial abnormality identified.Electronically signed by: Surinder Mariano (Jul 28, 2022 18:52:08)
[2022-07-28 19:09] LABS: WHITE BLOOD COUNT 4.6 X10^3/uL (3.6-10.0)
[2022-07-28 19:11] LABS: BASOPHILS % (AUTO) 0.7 % (0.2-1.0); HEMATOCRIT 35.8 % (36.0-47.0); HEMOGLOBIN 12.3 g/dL (12.0-16.0); LYMPHOCYTES # (AUTO) 0.4 X10^3/uL (1.3-2.9); MEAN CORPUSCULAR HEMOGLOBIN 29.7 pg (27.0-34.0); MEAN CORPUSCULAR HGB CONC 34.3 g/dL (33.0-35.0); MEAN CORPUSCULAR VOLUME 86.5 fL (80.0-100.0); MEAN PLATELET VOLUME 6.8 fL (7.4-11.0); MONOCYTES # (AUTO) 0.3 x10^3/uL (0.3-0.8); MONOCYTES % (AUTO) 6.8 % (0.0-13.0); NEUTROPHILS # (AUTO) 3.9 x10^3/uL (2.2-4.8); NEUTROPHILS % (AUTO) 83.5 % (42.0-75.0); PLATELET COUNT 296 X10^3/uL (150.0-450.0); RED BLOOD COUNT 4.14 X10^6/uL (3.5-5.4); RED CELL DISTRIBUTION WIDTH 13.5 % (11.6-16.5)
[2022-07-28 19:21] LABS: ALANINE AMINOTRANSFERASE 29 Units/L (12-78); ALBUMIN 2.9 g/dL (3.4-5.0); ALKALINE PHOSPHATASE 63 Units/L (46-116); ASPARTATE AMINO TRANSFERASE 35 Units/L (15-37); BLOOD UREA NITROGEN 5 mg/dL (7-18); CARBON DIOXIDE 33.1 mmol/L (21-32); CHLORIDE 101 mmol/L (98-107); COR CA(FOR HYPOALB) 8.9 mg/dL (8.5-10.1); COR NA(FOR HYPERGLY) 141 mmol/L (136-145); CREATINE KINASE 246 Units/L (26-192); CREATININE 0.48 mg/dL (0.55-1.02); GLUCOSE 124 mg/dL (65-99); SODIUM 140 mmol/L (136-145); TOTAL PROTEIN 5.9 g/dL (6.4-8.2); eGFR NON BLACK RACES > 60 (>60)
[2022-07-28 19:22] LABS: LACTIC ACID 0.6 mmol/L (0.4-2.0); POTASSIUM 1.8 mmol/L (3.5-5.1)
[2022-07-28 19:27] LABS: BILIRUBIN,URINE NEGATIVE (NEGATIVE); BLOOD/HEMOGLOBIN,URINE NEGATIVE (NEGATIVE); GLUCOSE, URINE NEGATIVE (NEGATIVE); KETONES,URINE NEGATIVE (NEGATIVE); LEUKOCYTE ESTERASE ,URINE 2+ (NEGATIVE); NITRITES,URINE POSITIVE (NEGATIVE); PROTEIN,URINE NEGATIVE (NEGATIVE); UROBILINOGEN,URINE NORMAL (NORMAL)
[2022-07-28] MEDS ORDERED: KLOR-CON ONE ×2 (19:42→23:25)
[2022-07-28 19:46] LABS: APPEARANCE,URINE CLEAR (CLEAR); COLOR,URINE STRAW (YELLOW)
[2022-07-28 19:47] LABS: BACTERIA,URINE 2+ /HPF (NEGATIVE); RBC,URINE 0-2 /HPF (0-3); SQUAMOUS EPITHELIAL CELL,UR RARE /HPF (NEGATIVE)
[2022-07-28] MEDS ORDERED: NS + KCL 20 MEQ/L 1,000 ML IV ONE (19:47)
[2022-07-28] MEDS: KLOR-CON PO PRN (19:52)
[2022-07-28] MEDS ORDERED: NS + KCL 20 MEQ/L 1,000 ML IV SCH (20:00)
[2022-07-28] MEDS ORDERED: ROCEPHIN VIAL 1 GRAM IVP ONE (20:10)
[2022-07-28] MEDS ORDERED: ROCEPHIN VIAL 1 GRAM ONE (20:12)
--- NOTE | 2022-07-28 20:32 | RAD ---
STUDY: FRONTAL VIEW CHESTCOMPARISON: 06/30/2022HISTORY: sob, weaknessFINDINGS:Clips along the left axilla are again notedThe heart size is persistently enlarged with findings suggesting mild degree of pulmonary edema. In addition, there is slight progressive increased interstitial lung markings along the right cardiac border and in the right heart compared to left side.The mediastinum is unremarkable.There is no evidence of pleural effusion or gross pneumothorax.The trachea is midline.IMPRESSION:The heart size is persistently enlarged with findings suggesting mild degree of pulmonary edema. In addition, there is slight progressive increased interstitial lung markings along the right cardiac border and in the right heart compared to left side. This could represent fluid overload due to congestive heart failure. Correlation with patient BNP levels may be helpful.Electronically signed by: Chip Dwyer (Jul 28, 2022 20:30:47)
[2022-07-28] MEDS: NS + KCL 40 MEQ/L 1,000 ML IV SCH (21:36)
[2022-07-28] MEDS ORDERED: MAGNESIUM SULFATE 1 GRAM/100 mL PREMIX 1 G/100 ML BAG IV ONE ×2 (22:21→23:08)
[2022-07-28] MEDS: MAGNESIUM SULFATE 1 GRAM/100 mL PREMIX 1 G/100 ML BAG IV PRN ×2 (22:25→23:14)
[2022-07-28] MEDS ORDERED: KLOR-CON PO ONE (23:23)
[2022-07-29] MEDS: KLOR-CON PO PRN (02:35)
[2022-07-29] MEDS ORDERED: PATIENT'S HOME MEDICATION PO PRN (04:43)
[2022-07-29 05:34] LABS: BASOPHILS # (AUTO) 0.1 X10^3/uL (0.0-0.1); BASOPHILS % (AUTO) 0.7 % (0.2-1.0); EOSINOPHILS % (AUTO) 0.1 % (0.9-2.9); HEMATOCRIT 32.6 % (36.0-47.0); HEMOGLOBIN 11.3 g/dL (12.0-16.0); LYMPHOCYTES # (AUTO) 0.6 X10^3/uL (1.3-2.9); LYMPHOCYTES % (AUTO) 8.3 % (21.0-51.0); MEAN CORPUSCULAR HGB CONC 34.6 g/dL (33.0-35.0); MEAN CORPUSCULAR VOLUME 86.5 fL (80.0-100.0); MEAN PLATELET VOLUME 7.1 fL (7.4-11.0); MONOCYTES # (AUTO) 0.5 x10^3/uL (0.3-0.8); MONOCYTES % (AUTO) 6.6 % (0.0-13.0); NEUTROPHILS # (AUTO) 5.9 x10^3/uL (2.2-4.8); NEUTROPHILS % (AUTO) 84.3 % (42.0-75.0); PLATELET COUNT 302 X10^3/uL (150.0-450.0); RED BLOOD COUNT 3.76 X10^6/uL (3.5-5.4); RED CELL DISTRIBUTION WIDTH 13.9 % (11.6-16.5)
[2022-07-29 05:47] LABS: ALANINE AMINOTRANSFERASE 24 Units/L (12-78); ALBUMIN 2.4 g/dL (3.4-5.0); ALKALINE PHOSPHATASE 53 Units/L (46-116); ASPARTATE AMINO TRANSFERASE 29 Units/L (15-37); BLOOD UREA NITROGEN 4 mg/dL (7-18); CALCIUM 7.7 mg/dL (8.5-10.1); CARBON DIOXIDE 34.7 mmol/L (21-32); CHLORIDE 104 mmol/L (98-107); CREATININE 0.44 mg/dL (0.55-1.02); GLUCOSE 90 mg/dL (65-99); SODIUM 142 mmol/L (136-145); eGFR NON BLACK RACES > 60 (>60)
[2022-07-29 06:25] LABS: INR 1.06 (0.8-1.3)
[2022-07-29] MEDS ORDERED: POTASSIUM CHL 60 MEQ/NS 0.45% 500 ML IV PRN (08:46)
[2022-07-29] MEDS ORDERED: POTASSIUM CHLORIDE LIQ PO PRN (08:46)
[2022-07-29] MEDS ORDERED: POTASSIUM CHL 40 MEQ/NS 0.45% 500 ML IV PRN (08:46)
[2022-07-29] MEDS ORDERED: K-RIDER 10 MEQ/NS 100 ML 10 MEQ/100 ML BAG IV PRN (08:46)
[2022-07-29] MEDS ORDERED: KLOR-CON PO PRN (08:46)
[2022-07-29] MEDS ORDERED: MICRO K EXTEN CAP 10 MEQ PO PRN (08:46)
[2022-07-29] MEDS: K-DUR TAB 20 MEQ PO PRN ×2 (09:10→17:39)
[2022-07-29] MEDS: ROCEPHIN VIAL 1 GRAM 1 G in NS 100 ML IV 100 ML IV SCH (09:11)
[2022-07-29] MEDS: ZESTRIL TAB 40 MG PO SCH (09:11)
[2022-07-29] MEDS ORDERED: TYLENOL #3 TAB (W/CODEINE) PO PRN (10:00)
[2022-07-29] MEDS ORDERED: NORVASC TAB 5 MG PO SCH (13:00)
[2022-07-29] MEDS ORDERED: PROVENTIL NEB TX 0.083% 2.5MG/ 3ML NEB PRN (13:00)
[2022-07-29] MEDS ORDERED: APRESOLINE INJ 20 MG VIAL IVP PRN (13:02)
[2022-07-29] MEDS ORDERED: ACETAMINOPHEN CODEINE PO PRN (13:23)
--- NOTE | 2022-07-29 15:46 | DR.H&P ---
H&P - History & Physical for Day of: H&P Date: 07/28/22 - Chief Complaint Chief Complaint: SEVERE WEAKNESS - History of Present Illness History of Present Illness: PT IS 71 WF ER ADMISSION WITH HYPOKALEMIA AND WEAKNESS. PT HAS PMH OF CAD, CHF, COPD, OA AND MACULAR DEGENERATION. PT HAS BEEN ON PO LASIX THERAPY FOR CHF AND REPORTS SHE HAS BEEN TAKING POTASSIUM ALSO. 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 - Past Medical History Past Medical History: CHF, COPD, Dyslipidemia, Hypertension Additional Medical History: HX BREAST CANCER, HX OF LYMPHOMA - Past Surgical History Surgical History: Appendectomy, Cholecystectomy, Hysterectomy, Mastectomy, Ortho Surgery, Other - Family History Family Medical History: Heart Failure, Hypertension - Social History Does patient currently use any type of tobacco product: Yes Have you used tobacco products in the last 12 months: Yes Type of Tobacco Use: Cigarettes Does any household member use tobacco: Yes Alcohol Use: None Drug Use: None - Review of Systems Constitutional: Weakness Eyes: No Symptoms Reported ENT: No Symptoms Reported Respiratory: SOB with Excertion Cardiovascular: Palpitations, Edema, Light Headedness Gastrointestinal: Nausea Genitourinary: No Symptoms Reported Musculoskeletal: Back Pain, Leg Pain Skin: No Symptoms Reported Neurological: Weakness - Physical Exam Vital Signs: Vital Signs Pulse Rate 72 Pulse Rate 76 Pulse Rate 73 Pulse Rate 73 Pulse Rate 79 Pulse Rate 77 Respiratory Rate 30 Respiratory Rate 26 Respiratory Rate 28 Respiratory Rate 25 Respiratory Rate 26 Respiratory Rate 24 Blood Pressure 150/72 Blood Pressure 193/91 Blood Pressure 202/92 Blood Pressure 218/86 Blood Pressure 178/87 Blood Pressure 167/80 Blood Pressure 171/79 O2 Sat by Pulse Oximetry 94 O2 Sat by Pulse Oximetry 95 O2 Sat by Pulse Oximetry 97 O2 Sat by Pulse Oximetry 99 O2 Sat by Pulse Oximetry 100 O2 Sat by Pulse Oximetry 99 07/29/22 12:00 07/29/22 13:00 07/29/22 13:43 Pulse Rate 76 72 Respiratory Rate 26 H 30 H O2 Sat by Pulse Oximetry 95 94 L Blood Pressure 202/92 193/91 150/72 Oriented: Normal Eyes: Blurred Vision Ear: Normal Nose: Normal Throat: Normal Respiratory: Diminished Throughout Cardiovascular: Normal, Edema : Normal Auscultation: Bowel Sounds: Normal Palpation: Normal Tenderness: Normal Skin: Decreased Turgur Musculoskeletal: Right, Left, Hip, Thigh, Back:Thoracic, Back:Lumbar, Tender Psychiatric: Anxiety Affect: Anxious Speech Pattern: Clear, Appropriate - Assessment/Plan (1) Hypokalemia Status: Acute Plan: ADMIT, ICU CARDIAC MONITORING. STRICT I&OS, SUPPLEMENTAL O2. ELECTROLYTE REPLACEMENT THERAPY. VERIFY HOME MEDICATIONS. RESP CONSULT, PRN PAIN CONTROL (2) COPD (chronic obstructive pulmonary disease) Status: Acute (3) CHF (congestive heart failure) Status: Acute (4) Closed left hip fracture Status: Acute (5) CHF (congestive heart failure) Qualifiers: Heart failure type: combined systolic and diastolic Heart failure chronicity: acute on chronic Qualified Code(s): I50.43 - Acute on chronic combined systolic (congestive) and diastolic (congestive) heart failure Status: Acute - Allergies Allergies/Adverse Reactions: Allergies Allergy/AdvReac Type Severity Reaction Status Date / Time morphine Allergy Severe ANAPHALEXIS Verified 07/29/22 04:41 REACTION sheep derived (ovine) Allergy Severe RASH Verified 07/29/22 04:47 contact metal agent Allergy Verified 07/12/22 17:49 Gold Salts Allergy Verified 07/12/22 17:49 lanolin Allergy Verified 07/12/22 17:50 Penicillins Allergy Verified 06/29/22 16:07 wool Allergy Verified 06/29/22 16:07 - Medications Home Medications: Home Medications Medication Instructions Recorded Confirmed alprazolam 0.5 mg tablet 1 tab PO BID PRN Anxiety 08/18/17 07/29/22 baclofen 20 mg tablet 1 tab PO TID 08/18/17 07/29/22 furosemide 20 mg tablet 20 mg PO Q8H 08/18/17 07/29/22 potassium chloride 10 mEq 1 cap PO DAILY PRN 08/18/17 07/29/22 capsule,extended release acetaminophen 300 mg-codeine 60 mg 1 tab PO Q6HR PRN 02/17/21 07/29/22 tablet amlodipine 5 mg tablet 5 mg PO BID 02/17/21 07/29/22 aspirin 81 mg tablet,delayed 81 mg PO DAILY 02/17/21 07/29/22 release clopidogrel 75 mg tablet 75 mg PO DAILY 02/17/21 07/29/22 ezetimibe 10 mg tablet 10 mg PO DAILY 02/17/21 07/29/22 gabapentin 800 mg tablet 800 mg PO QID 02/17/21 07/29/22 lisinopril 40 mg tablet 40 mg PO QAM 02/17/21 07/29/22 meloxicam 7.5 mg tablet 7.5 mg PO BID 02/17/21 07/29/22 metoprolol succinate 100 mg 100 mg PO QPM 02/17/21 07/29/22 tablet,extended release 24 hr pantoprazole 40 mg tablet,delayed 40 mg PO DAILY 02/17/21 07/29/22 release simvastatin 10 mg tablet 10 mg PO DAILY 02/17/21 07/29/22
[2022-07-29] MEDS: NEURONTIN CAP 400 MG PO SCH ×3 (16:30→20:55)
[2022-07-29] MEDS: PLAVIX PO SCH (16:47)
[2022-07-29] MEDS: PROTONIX TAB 40 MG PO SCH (16:48)
[2022-07-29] MEDS: ZETIA TAB 10 MG PO SCH (16:48)
[2022-07-29] MEDS ORDERED: TOPROL XL PO ONE (20:52)
[2022-07-29] MEDS: TOPROL XL PO SCH (20:55)
[2022-07-29] MEDS: XANAX PO PRN (20:55)
[2022-07-29] MEDS: LIORESAL PO SCH (20:55)
[2022-07-29] MEDS: PATIENT'S HOME MEDICATION PO PRN (21:37)
[2022-07-29] MEDS: NS + KCL 40 MEQ/L 1,000 ML IV SCH (21:52)
[2022-07-30] MEDS: LIORESAL PO SCH ×3 (05:16→21:06)
[2022-07-30] MEDS: PATIENT'S HOME MEDICATION PO PRN ×4 (05:16→23:05)
[2022-07-30 05:27] LABS: BASOPHILS % (AUTO) 0.7 % (0.2-1.0); EOSINOPHILS % (AUTO) 0.6 % (0.9-2.9); HEMATOCRIT 32.6 % (36.0-47.0); HEMOGLOBIN 11.1 g/dL (12.0-16.0); LYMPHOCYTES # (AUTO) 0.8 X10^3/uL (1.3-2.9); MEAN CORPUSCULAR HEMOGLOBIN 29.7 pg (27.0-34.0); MEAN CORPUSCULAR HGB CONC 34.1 g/dL (33.0-35.0); MEAN CORPUSCULAR VOLUME 87.1 fL (80.0-100.0); MEAN PLATELET VOLUME 7.1 fL (7.4-11.0); MONOCYTES # (AUTO) 0.4 x10^3/uL (0.3-0.8); MONOCYTES % (AUTO) 7.6 % (0.0-13.0); NEUTROPHILS # (AUTO) 4.3 x10^3/uL (2.2-4.8); NEUTROPHILS % (AUTO) 77.1 % (42.0-75.0); PLATELET COUNT 271 X10^3/uL (150.0-450.0); RED BLOOD COUNT 3.74 X10^6/uL (3.5-5.4); RED CELL DISTRIBUTION WIDTH 13.8 % (11.6-16.5); WHITE BLOOD COUNT 5.6 X10^3/uL (3.6-10.0)
[2022-07-30 05:40] LABS: ALANINE AMINOTRANSFERASE 24 Units/L (12-78); ALBUMIN 2.3 g/dL (3.4-5.0); ALKALINE PHOSPHATASE 52 Units/L (46-116); ASPARTATE AMINO TRANSFERASE 26 Units/L (15-37); BLOOD UREA NITROGEN 6 mg/dL (7-18); CALCIUM 7.8 mg/dL (8.5-10.1); CHLORIDE 104 mmol/L (98-107); COR CA(FOR HYPOALB) 9.2 mg/dL (8.5-10.1); GLUCOSE 89 mg/dL (65-99); SODIUM 139 mmol/L (136-145); TOTAL PROTEIN 4.7 g/dL (6.4-8.2); eGFR NON BLACK RACES > 60 (>60)
[2022-07-30] MEDS ORDERED: LOVENOX INJ 40 MG SYR SC SCH (09:00)
[2022-07-30] MEDS ORDERED: ZESTRIL TAB 40 MG PO SCH (09:00)
[2022-07-30] MEDS: NEURONTIN CAP 400 MG PO SCH ×4 (09:02→21:06)
[2022-07-30] MEDS: PLAVIX PO SCH (09:02)
[2022-07-30] MEDS: ZESTRIL TAB 40 MG PO SCH (09:02)
[2022-07-30] MEDS: ROCEPHIN VIAL 1 GRAM 1 G in NS 100 ML IV 100 ML IV SCH (09:02)
[2022-07-30] MEDS: ZETIA TAB 10 MG PO SCH (09:02)
[2022-07-30] MEDS: PROTONIX TAB 40 MG PO SCH (09:02)
[2022-07-30] MEDS: XANAX PO PRN ×2 (09:02→23:05)
[2022-07-30] MEDS: NORVASC TAB 5 MG PO SCH (09:02)
[2022-07-30] MEDS: MICRO K EXTEN CAP 10 MEQ PO SCH (09:03)
[2022-07-30] MEDS: KLOR-CON PO SCH ×3 (09:19→21:05)
[2022-07-30] MEDS: LASIX IVP SCH ×2 (09:27→16:54)
--- NOTE | 2022-07-30 13:53 | RAD ---
CHEST, 1 VIEWHISTORY: CHFStudy: Single view of the chest.Comparison:July 28, 2022Findings:Mild cardiomegaly. No change in the appearance of bilateral interstitial prominence. No focal consolidation. Osseous structures demonstrate no acute abnormality.IMPRESSION:1. No change from prior.Electronically signed by: AXEL FRANCOIS (Jul 30, 2022 13:53:00)
[2022-07-30] MEDS ORDERED: DEMEROL INJ IVP PRN (17:48)
--- NOTE | 2022-07-30 17:48 | PCM.PROG ---
Progress Note - Progress Note for Day of Date of Exam: 07/30/22 - Subjective Subjective: he patient is a 71-year-old white female who was admitted with hypokalemia from the ER after she presented with severe weakness. The patient does have a past medical history of congestive heart failure and she is on daily diuretic and Lasix. Potassium was up to 4 this am. Pts chest xray results taken yesterday are not available this am. IV lasix She states that she has been taking her home medications as prescribed and has been on supplemental oxygen. The patient denies any chest pain, but is complaining of shortness of breath. - Past Medical Family Social History Past Med/Fam/Surg Hx: No changes since H&P Allergies: Allergies morphine Allergy (Severe, Verified 07/29/22 04:41) ANAPHALEXIS REACTION sheep derived (ovine) Allergy (Severe, Verified 07/29/22 04:47) RASH 'sheep skin' allergy contact metal agent Allergy (Verified 07/12/22 17:49) 'GOLD' allergy (unspecified? ask patient for details) Gold Salts Allergy (Verified 07/12/22 17:49) 'GOLD' allergy (unspecified? ask patient for details) lanolin Allergy (Verified 07/12/22 17:50) 'sheep skin' allergy; possible lanolin allergy? Penicillins Allergy (Verified 06/29/22 16:07) wool Allergy (Verified 06/29/22 16:07) - Review of Systems ROS: No change since H&P - Vital Signs and I&O's Vital Signs: Vital Signs Temperature 97.8 F Temperature 97.7 F Pulse Rate 61 Pulse Rate 55 Pulse Rate 59 Pulse Rate 64 Pulse Rate 54 Pulse Rate 56 Pulse Rate 71 Pulse Rate 58 Pulse Rate 56 Respiratory Rate 24 Respiratory Rate 16 Respiratory Rate 33 Respiratory Rate 16 Respiratory Rate 37 Respiratory Rate 37 Respiratory Rate 28 Respiratory Rate 28 Respiratory Rate 29 Blood Pressure 144/66 Blood Pressure 124/60 Blood Pressure 116/58 Blood Pressure 153/74 Blood Pressure 155/80 Blood Pressure 162/77 Blood Pressure 189/92 O2 Sat by Pulse Oximetry 92 O2 Sat by Pulse Oximetry 93 O2 Sat by Pulse Oximetry 93 O2 Sat by Pulse Oximetry 91 O2 Sat by Pulse Oximetry 93 O2 Sat by Pulse Oximetry 94 O2 Sat by Pulse Oximetry 93 O2 Sat by Pulse Oximetry 95 O2 Sat by Pulse Oximetry 92 07/30/22 14:00 07/30/22 14:00 07/30/22 15:00 Temperature Pulse Rate 59 L Respiratory Rate 33 H O2 Sat by Pulse Oximetry 93 L Blood Pressure 116/58 124/60 Blood Pressure Mean 83 86 07/30/22 15:00 07/30/22 16:00 07/30/22 16:00 Temperature 97.8 F Pulse Rate 55 L 61 Respiratory Rate 16 24 O2 Sat by Pulse Oximetry 93 L 92 L Blood Pressure 144/66 Blood Pressure Mean 95 Intake and Output: Intake & Output 07/28/22 07/29/22 07/30/22 07/31/22 11:59 11:59 11:59 11:59 Intake Total 1067 / 1067 2608 / 2608 1191 / 1191 Output Total 1700 / 1700 4900 / 4900 3000 / 3000 Balance -633 / -633 -2292 / -2292 -1809 / -1809 - Physical Exam Oriented: Normal Eyes: Blurred Vision Ear: Normal Nose: Normal Throat: Normal Respiratory: Diminished, Wheezes Cardiovascular: Normal, Edema : Normal Auscultation: Bowel Sounds: Normal Tenderness: Normal Skin: Decreased [place] Musculoskeletal: Right, Left, Hip, Thigh, Back:Thoracic, Back:Lumbar, Tender Psychiatric: Anxiety Affect: Anxious Speech Pattern: Clear, Appropriate - Laboratory and Diagnostics Result Diagrams: 07/30/22 04:30 07/30/22 04:30 Labs: 07/28/22 18:15 Urine,Clean Catch Urine Culture - Final Klebsiella Pneumoniae Laboratory WBC 5.6 X10^3/uL (3.6-10.0) 07/30/22 04:30 RBC 3.74 X10^6/uL (3.5-5.4) 07/30/22 04:30 Hgb 11.1 g/dL (12.0-16.0) L 07/30/22 04:30 Hct 32.6 % (36.0-47.0) L 07/30/22 04:30 MCV 87.1 fL (80.0-100.0) 07/30/22 04:30 MCH 29.7 pg (27.0-34.0) 07/30/22 04:30 MCHC 34.1 g/dL (33.0-35.0) 07/30/22 04:30 RDW 13.8 % (11.6-16.5) 07/30/22 04:30 Plt Count 271 X10^3/uL (150.0-450.0) 07/30/22 04:30 MPV 7.1 fL (7.4-11.0) L 07/30/22 04:30 Neut % (Auto) 77.1 % (42.0-75.0) H 07/30/22 04:30 Lymph % (Auto) 14.0 % (21.0-51.0) L 07/30/22 04:30 [place] % (Auto) 7.6 % (0.0-13.0) 07/30/22 04:30 Eos % (Auto) 0.6 % (0.9-2.9) L 07/30/22 04:30 Baso % (Auto) 0.7 % (0.2-1.0) 07/30/22 04:30 Neut # (Auto) 4.3 x10^3/uL (2.2-4.8) 07/30/22 04:30 Lymph # (Auto) 0.8 X10^3/uL (1.3-2.9) L 07/30/22 04:30 [place] # (Auto) 0.4 x10^3/uL (0.3-0.8) 07/30/22 04:30 Eos # (Auto) 0.0 x10^3/uL (0.0-0.2) 07/30/22 04:30 Baso # (Auto) 0.0 X10^3/uL (0.0-0.1) 07/30/22 04:30 Absolute Nucleated RBC 0.0 /100WBC 07/30/22 04:30 PT 13.6 SECONDS (11.8-14.3) 07/29/22 04:31 INR Target Range - 07/29/22 04:31 INR 1.06 (0.8-1.3) 07/29/22 04:31 APTT 28.3 SECONDS (22.9-36.5) 07/29/22 04:31 PTT Comment - 07/29/22 04:31 Sodium 139 mmol/L (136-145) 07/30/22 04:30 Corrected Sodium TNP 07/30/22 04:30 Potassium 4.0 mmol/L (3.5-5.1) 07/30/22 04:30 Chloride 104 mmol/L (98-107) 07/30/22 04:30 Carbon Dioxide 33.0 mmol/L (21-32) H 07/30/22 04:30 BUN 6 mg/dL (7-18) L 07/30/22 04:30 Creatinine 0.40 mg/dL (0.55-1.02) L 07/30/22 04:30 Est GFR (MDRD) Af Amer > 60 (>60) 07/30/22 04:30 Est GFR (MDRD) Non-Af > 60 (>60) 07/30/22 04:30 Glucose 89 mg/dL (65-99) 07/30/22 04:30 Lactic Acid 0.6 mmol/L (0.4-2.0) 07/28/22 18:53 Calcium 7.8 mg/dL (8.5-10.1) L 07/30/22 04:30 Corrected Calcium 9.2 mg/dL (8.5-10.1) 07/30/22 04:30 Magnesium 2.0 mg/dL (2.0-2.9) 07/29/22 04:31 Total Bilirubin 0.20 mg/dL (0.2-1.0) 07/30/22 04:30 AST 26 Units/L (15-37) 07/30/22 04:30 ALT 24 Units/L (12-78) 07/30/22 04:30 Alkaline Phosphatase 52 Units/L (46-116) 07/30/22 04:30 Creatine Kinase 246 Units/L (26-192) H 07/28/22 18:53 Troponin I High Sens 51.6 ng/L (4.0-60.0) 07/28/22 18:53 B-Natriuretic Peptide 274 pg/mL (0-79) H 07/28/22 18:53 Total Protein 4.7 g/dL (6.4-8.2) L 07/30/22 04:30 Albumin 2.3 g/dL (3.4-5.0) L 07/30/22 04:30 Globulin 2.4 g/dL (2.5-4.5) L 07/30/22 04:30 Albumin/Globulin Ratio 1.0 Ratio (1.1-2.1) L 07/30/22 04:30 Specimen Type Catherized urine 07/28/22 19:10 Urine Color Straw (YELLOW) 07/28/22 19:10 Urine Appearance Clear (CLEAR) 07/28/22 19:10 Urine pH 7.0 (5.0 - 8.0) 07/28/22 19:10 Ur Specific [place] 1.015 (1.000-1.030) 07/28/22 19:10 Urine Protein Negative (NEGATIVE) 07/28/22 19:10 Urine Glucose (UA) Negative (NEGATIVE) 07/28/22 19:10 Urine Ketones Negative (NEGATIVE) 07/28/22 19:10 Urine Blood Negative (NEGATIVE) 07/28/22 19:10 Urine Nitrite Positive (NEGATIVE) 07/28/22 19:10 Urine Bilirubin Negative (NEGATIVE) 07/28/22 19:10 Urine Urobilinogen Normal (NORMAL) 07/28/22 19:10 Ur Leukocyte Esterase 2+ (NEGATIVE) 07/28/22 19:10 Urine RBC 0-2 /HPF (0-3) 07/28/22 19:10 Urine WBC 0-2 /HPF (0-5) 07/28/22 19:10 Ur Squamous Epith Cells Rare /HPF (NEGATIVE) 07/28/22 19:10 Amorphous Sediment Trace /HPF (NEGATIVE) 07/28/22 18:15 Urine Bacteria 2+ /HPF (NEGATIVE) 07/28/22 19:10 Ur Culture Indicated? Yes/culture set up 07/28/22 19:10 SARS-CoV-2 (PCR) Negative (NEGATIVE) 07/28/22 20:35 Influenza Type A (PCR) Negative (NEGATIVE) 07/28/22 20:35 Influenza Type B (PCR) Negative (NEGATIVE) 07/28/22 20:35 RSV (PCR) Negative (NEGATIVE) 07/28/22 20:35 - Plan (1) Hypokalemia Status: Acute Plan: ICU CARDIAC MONITORING. STRICT I&OS, SUPPLEMENTAL O2. CXR, IV LASIX. ELECTROLYTE REPLACEMENT THERAPY. VERIFY HOME MEDICATIONS. RESP CONSULT, PRN PAIN CONTROL (2) COPD (chronic obstructive pulmonary disease) Status: Acute (3) CHF (congestive heart failure) Status: Acute (4) Closed left hip fracture Status: Acute (5) CHF (congestive heart failure) Status: Acute Qualifiers: Heart failure type: combined systolic and diastolic Heart failure chronic ity: acute on chronic Qualified Code(s): I50.43 - Acute on chronic combined systolic (congestive) and diastolic (congestive) heart failure
[2022-07-30] MEDS: NS + KCL 40 MEQ/L 1,000 ML IV SCH ×2 (17:54→21:06)
[2022-07-30] MEDS ORDERED: TOPROL XL PO ONE (20:28)
[2022-07-30] MEDS: TOPROL XL PO SCH (21:06)
[2022-07-31] MEDS: LIORESAL PO SCH (05:05)
[2022-07-31 05:21] LABS: BASOPHILS % (AUTO) 0.4 % (0.2-1.0); EOSINOPHILS # (AUTO) 0.2 x10^3/uL (0.0-0.2); EOSINOPHILS % (AUTO) 2.1 % (0.9-2.9); HEMATOCRIT 27.1 % (36.0-47.0); LYMPHOCYTES # (AUTO) 1.8 X10^3/uL (1.3-2.9); LYMPHOCYTES % (AUTO) 20.4 % (21.0-51.0); MEAN CORPUSCULAR HEMOGLOBIN 29.2 pg (27.0-34.0); MEAN CORPUSCULAR HGB CONC 33.2 g/dL (33.0-35.0); MEAN PLATELET VOLUME 9.7 fL (7.4-11.0); MONOCYTES # (AUTO) 0.8 x10^3/uL (0.3-0.8); MONOCYTES % (AUTO) 9.7 % (0.0-13.0); NEUTROPHILS # (AUTO) 5.8 x10^3/uL (2.2-4.8); NEUTROPHILS % (AUTO) 67.4 % (42.0-75.0); PLATELET COUNT 174 X10^3/uL (150.0-450.0); RED BLOOD COUNT 3.08 X10^6/uL (3.5-5.4); RED CELL DISTRIBUTION WIDTH 15.7 % (11.6-16.5); WHITE BLOOD COUNT 8.6 X10^3/uL (3.6-10.0)
[2022-07-31 05:37] LABS: ALANINE AMINOTRANSFERASE 29 Units/L (12-78); ALBUMIN 2.8 g/dL (3.4-5.0); ALKALINE PHOSPHATASE 64 Units/L (46-116); ASPARTATE AMINO TRANSFERASE 11 Units/L (15-37); BLOOD UREA NITROGEN 12 mg/dL (7-18); CALCIUM 9.2 mg/dL (8.5-10.1); CARBON DIOXIDE 34.8 mmol/L (21-32); CHLORIDE 103 mmol/L (98-107); COR CA(FOR HYPOALB) 10.2 mg/dL (8.5-10.1); COR NA(FOR HYPERGLY) 143 mmol/L (136-145); CREATININE 0.75 mg/dL (0.55-1.02); GLUCOSE 139 mg/dL (65-99); SODIUM 142 mmol/L (136-145); TOTAL PROTEIN 5.6 g/dL (6.4-8.2); eGFR NON BLACK RACES > 60 (>60)
[2022-07-31] MEDS: PATIENT'S HOME MEDICATION PO PRN (07:10)
[2022-07-31 09:00] VITALS: BP 184/84; PULSE 53; O2SAT 99
[2022-07-31] MEDS ORDERED: LOVENOX INJ 40 MG SYR SC SCH (09:00)
[2022-07-31] MEDS: PLAVIX PO SCH (09:06)
[2022-07-31] MEDS: ZESTRIL TAB 40 MG PO SCH (09:06)
[2022-07-31] MEDS: LASIX IVP SCH (09:06)
[2022-07-31] MEDS: MICRO K EXTEN CAP 10 MEQ PO SCH (09:07)
[2022-07-31] MEDS: ZETIA TAB 10 MG PO SCH (09:07)
[2022-07-31] MEDS: NEURONTIN CAP 400 MG PO SCH (09:07)
[2022-07-31] MEDS: NORVASC TAB 5 MG PO SCH (09:07)
[2022-07-31] MEDS: PROTONIX TAB 40 MG PO SCH (09:07)
[2022-07-31] MEDS: XANAX PO PRN (09:07)
[2022-07-31] MEDS: KLOR-CON PO SCH (09:16)
[2022-07-31] MEDS: ROCEPHIN VIAL 1 GRAM 1 G in NS 100 ML IV 100 ML IV SCH (09:16)
[2022-07-31 09:38] VITALS: TEMP 97.4
== END 2022-07-31 10:45 | disposition home health service (06) ==
LOC: ICU 17:58 → ER 17:58 → ICU 23:37
PROVIDERS: ADMIT Internal Medicine; ATTEND Internal Medicine
DX: N39.0 Urinary tract infection, site not specified; Z66 Do not resuscitate; E78.2 Mixed hyperlipidemia; I11.0 Hypertensive heart disease with heart failure; F41.8 Other specified anxiety disorders; E87.6 Hypokalemia; Z20.822 Contact with and (suspected) exposure to COVID-19; J44.9 Chronic obstructive pulmonary disease, unspecified; R06.02 Shortness of breath; B96.1 Klebsiella pneumoniae [K. pneumoniae] as the cause of diseases classified elsewhere; M19.90 Unspecified osteoarthritis, unspecified site; X58.XXXA Exposure to other specified factors, initial encounter; S72.002A Fracture of unspecified part of neck of left femur, initial encounter for closed fracture; I50.43 Acute on chronic combined systolic (congestive) and diastolic (congestive) heart failure